=== PATIENT | female | born 1965 | race Caucasian/White ===

== ENCOUNTER 2017-04-12 09:25 | Emergency (ER) | payer MEDICAID, SELFPAY | END 2017-04-12 10:10 | disposition home or self-care (01) | PROVIDERS: Emergency Provider Nurse Practitioner Family; Family Provider Emergency Medicine; Visit Provider Nurse Practitioner Family | DX: N76.4 Abscess of vulva (principal); F17.210 Nicotine dependence, cigarettes, uncomplicated; J44.9 Chronic obstructive pulmonary disease, unspecified; I10 Essential (primary) hypertension; Z79.899 Other long term (current) drug therapy; Z85.41 Personal history of malignant neoplasm of cervix uteri; Z88.3 Allergy status to other anti-infective agents; Z88.8 Allergy status to other drugs, medicaments and biological substances | CPT/HCPCS: 99201 ==

== ENCOUNTER 2017-05-08 15:04 | Observation (INO) | payer MEDICAID, SELFPAY ==
[2017-05-08] VITALS (10 sets, daily range): BP systolic 107–139; BP diastolic 52–72; PULSE 71–101; RESP 20–22; TEMP 36.7–39.1; O2SAT 92–98; BMI 24.7; BMI 23.7
--- NOTE | 2017-05-08 15:19 | XR_ITS ---
XR chest 2V Ordering Physician: Betty Ojeda MD Patient Age: 51 years: Female HISTORY: ITS.REASON: cough, fever Fever cough congestion pneumonia TECHNIQUE: PA and lateral chest. COMPARISON :March 2016 CT chest FINDINGS : Focal infiltrate and consolidation posterior left lower lobe. This extends to the posterior sulcus & obscures the posterior right hemidiaphragm. This triangular area of consolidation and infiltrate best seen on the lateral view.. . Most likely related to pneumonia but requires clinical correlation. Morrill appearance conceivably could reflect Hagan hump if significant chest pain or hemoptysis history The upper lung ambriz are clear. The heart xavier and mediastinal structures appear satisfactory. IMPRESSION: 1.. Left lower lobe consolidation &, infiltrate. Most compatible left lower lobe pneumonia. Requires clinical correlation. Note comments above
[2017-05-08 15:48] LABS: Basophils % 0.2 % (0.1-2.0); Eosinophils % 0.1 % (0.1-12.0); Hematocrit 31.7 % (37.0-47.0); Hemoglobin 10.9 g/dL (12.2-16.2); Lymphocytes # 3.6 K/mm3 (0.7-4.5); Lymphocytes % 14.6 K/mm3 (10-50); Mean Corpuscular HGB Conc 34.3 g/dL (31.8-35.4); Mean Corpuscular Hemoglobin 28.1 pg (27.0-31.2); Mean Corpuscular Volume 81.8 fl (81-99); Mean Platelet Volume 8.6 fl (7.4-10.4); Monocytes % 4.2 % (1.7-9.3); Neutrophils # 19.8 K/mm3 (1.8-7.8); Platelet Count 237 K/mm3 (142-424); Red Blood Count 3.88 M/mm3 (4.20-5.40); White Blood Count 24.4 K/mm3 (4.8-10.8)
[2017-05-08 16:00] LABS: Alanine Aminotransferase 13 U/L (12-78); Albumin Level 3.2 gm/dL (3.4-5.0); Albumin/Globulin Ratio 0.7 (1.1-1.8); Alkaline Phosphatase 92 U/L (46-116); Anion Gap 10.9 mEq/L (5-15); Aspartate Amino Transferase 18 U/L (15-37); Bilirubin,Total 0.6 mg/dL (0.2-1.0); Blood Urea Nitrogen 11 mg/dL (7-18); Calcium 8.7 mg/dL (8.5-10.1); Carbon Dioxide 28 mmol/L (21.0-32.0); Chloride 95 mmol/L (98-107); Creatinine Clearance Estimated 84 mL/min (0-300); Creatinine,Serum 0.84 mg/dL (0.55-1.02); Estimated Glomerular Filt Rate 71 ml/min (>60); GFR (African American) 86 ML/MIN (>60); Globulin 4.7 gm/dl (1.3-3.2); Glucose 132 mg/dL (74-106); Sodium 131 mmol/L (136-145); Total Protein,Serum 7.9 gm/dL (6.4-8.2)
[2017-05-08 16:05] LABS: MANUAL DIFFERENTIAL MANUAL DIFFERENTIAL (MANUAL DIFF)
[2017-05-08 16:07] LABS: Potassium 2.9 mmoL/L (3.5-5.1)
--- NOTE | 2017-05-08 16:08 | PC.NURSE ---
CRITICAL POTASSIUM 2.9 MD WAS NOTED
[2017-05-08 17:00] LABS: Lymphocytes % 10 % (10-50); Monocytes % 2 % (2-9); Neutrophils % 88 % (42-76); Platelet Estimate Normal; Total Cells Counted 100
[2017-05-08 17:01] LABS: RBC Morphology Normal
--- NOTE | 2017-05-08 17:34 | HMH.EDFEV ---
ED Disposition Clinical Impression: Hypokalemia Community acquired pneumonia Qualifiers: Laterality: left Lung location: lower lobe of lung Qualified Code(s): J18.1 - Lobar pneumonia, unspecified organism Disposition: Admitted as Observation Condition on Discharge: Good Referrals: Gilles Osman MD [Primary Care Provider] - - Critical Care Critical Care Time: Yes Attestation: On 05/08/17, the high probability of a clinically significant, sudden or life threatening deterioration of the following system(s) required my full and direct attention, intervention and personal management. The time I documented below is in addition to time spent performing reported procedures but includes the following listed in this critical care notation. Total Critical Care Time: 10 Vital system(s) involved:: Circulatory Failure My critical care processes included: Assessment & monitoring of V/S, Initial and Re-exams, Data Review/Interpretation, Coordinating Care, Medication Orders and management, Documentation Medical Decision Making Vital Signs: 05/08/17 15:12 05/08/17 15:50 05/08/17 16:25 Temperature 102.4 F H 98.7 F Temperature Source Oral Oral Pulse Rate 92 H Pulse Rate [Left Brachial] 101 H 100 H Respiratory Rate 20 22 Blood Pressure [Left Arm] 139/52 130/65 Blood Pressure Mean [Left Arm] 81 86 Blood Pressure Source [Left Arm] Automatic Cuff Automatic Cuff Blood Pressure Position [Left Arm] Supine Sitting 02 Sat by Pulse Oximetry 94 L 94 L Oxygen Delivery Method Room Air Room Air Oxygen Flow Rate (LPM) 05/08/17 16:28 Temperature Temperature Source Pulse Rate Pulse Rate [Left Brachial] Respiratory Rate Blood Pressure [Left Arm] Blood Pressure Mean [Left Arm] Blood Pressure Source [Left Arm] Blood Pressure Position [Left Arm] 02 Sat by Pulse Oximetry 94 L Oxygen Delivery Method Room Air Oxygen Flow Rate (LPM) 2 - Lab Data Lab Results 05/08/17 15:35: WBC 24.4 H*, RBC 3.88 L, Hgb 10.9 L, Hct 31.7 L, MCV 81.8, MCH 28.1, MCHC 34.3, RDW 13.0, Plt Count 237, MPV 8.6, Neut % (Auto) 81.0 H, Lymph % (Auto) 14.6, [place] % (Auto) 4.2, Eos % (Auto) 0.1, Baso % (Auto) 0.2, Neut # (Auto) 19.8 H, Lymph # (Auto) 3.6, [place] # (Auto) 1.0, Eos # (Auto) 0.0, Baso # (Auto) 0.0, Total Counted 100, Neutrophils % (Manual) 88 H, Lymphocytes % (Manual) 10, Monocytes % (Manual) 2, Platelet Estimate Normal, RBC Morphology Normal 05/08/17 15:35: Sodium 131 L, Potassium 2.9 L*, Chloride 95 L, Carbon Dioxide 28, Anion Gap 10.9, BUN 11, Creatinine 0.84, Estimated Creat Clear 84, Estimated GFR 71, Est GFR ( Amer) 86, Glucose 132 H, Calcium 8.7, Total Bilirubin 0.6, AST 18, ALT 13, Alkaline Phosphatase 92, Total Protein 7.9, Albumin 3.2 L, Globulin 4.7 H, Albumin/Globulin Ratio 0.7 L 05/08/17 15:40: Influenza Type A Ag Negative, Influenza Type B Ag Negative Result diagrams: 05/08/17 15:35 05/08/17 15:35 Orders (Tests/Meds): ED MEDICATIONS Discontinued Medications Generic Name Dose Route Start Last Admin Trade Name Freq PRN Reason Stop Dose Admin Albuterol/Ipratropium 3 ml 05/08/17 15:42 05/08/17 15:47 Duoneb 3ml Neb IH 05/08/17 15:43 3 ml ONCE ONE Administration Ceftriaxone Sodium 1 gm/ 50 mls @ 100 mls/hr 05/08/17 16:01 05/08/17 16:47 Sodium Chloride IV 05/08/17 16:30 100 mls/hr ONCE ONE Administration Ibuprofen 800 mg 05/08/17 17:46 Motrin 600mg Tablet PO 05/08/17 17:47 ONCE ONE Methylprednisolone Sodium Succinate 125 mg 05/08/17 16:00 05/08/17 16:47 Solu-Medrol 125mg/2ml Vial IV 05/08/17 16:01 125 mg ONCE ONE Administration Potassium Chloride 20 meq 05/08/17 16:09 05/08/17 16:47 Klor-Con 20meq Tablet PO 05/08/17 16:10 20 meq ONCE ONE Administration ORDERS Category Date Time Status Lactic Acid Stat Lab 05/08/17 15:35 Received Blood Culture Stat Micro 05/08/17 15:35 Received ECG Request by /Ronan Stat Y 05/08/17 16:08 Ordered
--- NOTE | 2017-05-08 17:37 | ED_ITS ---
ED Disposition Clinical Impression: Hypokalemia Community acquired pneumonia Qualifiers: Laterality: left Lung location: lower lobe of lung Qualified Code(s): J18.1 - Lobar pneumonia, unspecified organism Disposition: Admitted as Observation Condition on Discharge: Good Referrals: Gilles Osman MD [Primary Care Provider] - - Critical Care Critical Care Time: Yes Attestation: On 05/08/17, the high probability of a clinically significant, sudden or life threatening deterioration of the following system(s) required my full and direct attention, intervention and personal management. The time I documented below is in addition to time spent performing reported procedures but includes the following listed in this critical care notation. Total Critical Care Time: 10 Vital system(s) involved:: Circulatory Failure My critical care processes included: Assessment & monitoring of V/S, Initial and Re-exams, Data Review/Interpretation, Coordinating Care, Medication Orders and management, Documentation Medical Decision Making Vital Signs: 05/08/17 15:12 05/08/17 15:50 05/08/17 16:25 Temperature 102.4 F H 98.7 F Temperature Source Oral Oral Pulse Rate 92 H Pulse Rate [Left Brachial] 101 H 100 H Respiratory Rate 20 22 Blood Pressure [Left Arm] 139/52 130/65 Blood Pressure Mean [Left Arm] 81 86 Blood Pressure Source [Left Arm] Automatic Cuff Automatic Cuff Blood Pressure Position [Left Arm] Supine Sitting 02 Sat by Pulse Oximetry 94 L 94 L Oxygen Delivery Method Room Air Room Air Oxygen Flow Rate (LPM) 05/08/17 16:28 Temperature Temperature Source Pulse Rate Pulse Rate [Left Brachial] Respiratory Rate Blood Pressure [Left Arm] Blood Pressure Mean [Left Arm] Blood Pressure Source [Left Arm] Blood Pressure Position [Left Arm] 02 Sat by Pulse Oximetry 94 L Oxygen Delivery Method Room Air Oxygen Flow Rate (LPM) 2 - Lab Data Lab Results 05/08/17 15:35: WBC 24.4 H*, RBC 3.88 L, Hgb 10.9 L, Hct 31.7 L, MCV 81.8, MCH 28.1, MCHC 34.3, RDW 13.0, Plt Count 237, MPV 8.6, Neut % (Auto) 81.0 H, Lymph % (Auto) 14.6, [place] % (Auto) 4.2, Eos % (Auto) 0.1, Baso % (Auto) 0.2, Neut # ( Auto) 19.8 H, Lymph # (Auto) 3.6, [place] # (Auto) 1.0, Eos # (Auto) 0.0, Baso # ( Auto) 0.0, Total Counted 100, Neutrophils % (Manual) 88 H, Lymphocytes % (Manual ) 10, Monocytes % (Manual) 2, Platelet Estimate Normal, RBC Morphology Normal 05/08/17 15:35: Sodium 131 L, Potassium 2.9 L*, Chloride 95 L, Carbon Dioxide 28 , Anion Gap 10.9, BUN 11, Creatinine 0.84, Estimated Creat Clear 84, Estimated GFR 71, Est GFR ( Amer) 86, Glucose 132 H, Calcium 8.7, Total Bilirubin 0.6, AST 18, ALT 13, Alkaline Phosphatase 92, Total Protein 7.9, Albumin 3.2 L, Globulin 4.7 H, Albumin/Globulin Ratio 0.7 L 05/08/17 15:40: Influenza Type A Ag Negative, Influenza Type B Ag Negative Result diagrams: 05/08/17 15:35 05/08/17 15:35 Orders (Tests/Meds): ED MEDICATIONS Discontinued Medications Generic Name Dose Route Start Last Admin Trade Name Freq PRN Reason Stop Dose Admin Albuterol/Ipratropium 3 ml 05/08/17 15:42 05/08/17 15:47 Duoneb 3ml Neb IH 05/08/17 15:43 3 ml ONCE ONE Administration Ceftriaxone Sodium 1 gm/ 50 mls @ 100 mls/hr 05/08/17 16:01 05/08/17 16:47
--- NOTE | 2017-05-08 18:35 | PC.NURSE ---
report called to EITAN Greenwood on second floor at this time
[2017-05-08 19:15] LABS: Lactic Acid 1.7 mmol/L (0.4-2.0)
--- NOTE | 2017-05-08 20:46 | PC.NURSE ---
pt stated she did not want to wear johnny s at this time. that she would wear them tomorrow. nurse notified
--- NOTE | 2017-05-08 22:28 | PC.NURSE ---
called dr sorto in [place] who is attending. request something for a cough. no new order yet.
[2017-05-09] VITALS: BP 128/73; PULSE 60; RESP 18; TEMP 36.4; O2SAT 98
[2017-05-09 00:13] LABS: POC Glucose,Bedside 248 mg/dL
--- NOTE | 2017-05-09 00:18 | PC.NURSE ---
pts bp was taken in lt arm on 20:00 & 00:00 round
[2017-05-09 01:45] VITALS: PULSE 54; PULSE 55
[2017-05-09 04:00] VITALS: BP 99/52; PULSE 66; RESP 22; TEMP 36.3; O2SAT 100
--- NOTE | 2017-05-09 04:09 | PC.NURSE ---
LAYING IN BED RESTING AT THIS TIME. HAD A DRY NONPRODUCTIVE COUGH AT BEGINNING OF SHIFT. NOTIFIED DR ARIAS OF NEED FOR COUGH MEDICATION, NO NEW ORDER. LUNGS ARE DIMINISHED WITH SOME FINE CRACKLES IN LEFT. HAD SOME BACK PAIN AT BEGINNING OF SHIFT. GAVE TYLENOL. DENIES SOA, RESP ARE EVEN AND NONLABORED. IV IS PATENT, STATES HAS NO NEEDS AT THIS TIME. BED LOCKED IN LOW POSITION, SIDE RALES UP X 2. CALL LILLY WITHIN REACH. WILL CONTINUE TO MONITOR.
--- NOTE | 2017-05-09 04:22 | PC.NURSE ---
PATIENT HAS REFUSED TEDS, EDUCATED ON WHAT THEY ARE USED FOR. SAYS SHE WILL PUT THEM ON AFTER SHOWER TODAY.
--- NOTE | 2017-05-09 04:36 | PC.NURSE ---
pts bp was taken in ;lt arm
[2017-05-09 06:38] VITALS: PULSE 76; PULSE 77; O2SAT 97
--- NOTE | 2017-05-09 07:14 | PC.NURSE ---
LATE ENTRY-PT WANTS TO TAKE A BATRH AFTER BREAKFAST
[2017-05-09 07:18] LABS: Basophils % 0.1 % (0.1-2.0); Eosinophils % 0.3 % (0.1-12.0); Hematocrit 34.3 % (37.0-47.0); Hemoglobin 11.1 g/dL (12.2-16.2); Lymphocytes % 22.3 K/mm3 (10-50); Mean Corpuscular HGB Conc 32.4 g/dL (31.8-35.4); Mean Corpuscular Hemoglobin 27.8 pg (27.0-31.2); Mean Corpuscular Volume 85.9 fl (81-99); Mean Platelet Volume 8.5 fl (7.4-10.4); Monocytes # 0.1 K/mm3 (0.1-1.0); Monocytes % 1.6 % (1.7-9.3); Neutrophils # 6.6 K/mm3 (1.8-7.8); Neutrophils % 75.8 % (37.0-80.0); Platelet Count 230 K/mm3 (142-424); Red Blood Count 3.99 M/mm3 (4.20-5.40); Red Cell Distribution Width 13.1 % (11.5-17.5); White Blood Count 8.8 K/mm3 (4.8-10.8)
--- NOTE | 2017-05-09 07:21 | PC.NURSE ---
Received report from Lin Burns RN
[2017-05-09 07:29] LABS: Alanine Aminotransferase 11 U/L (12-78); Albumin Level 3.1 gm/dL (3.4-5.0); Albumin/Globulin Ratio 0.6 (1.1-1.8); Alkaline Phosphatase 90 U/L (46-116); Anion Gap 11.2 mEq/L (5-15); Aspartate Amino Transferase 12 U/L (15-37); Bilirubin,Total 0.4 mg/dL (0.2-1.0); Blood Urea Nitrogen 17 mg/dL (7-18); Calcium 9.1 mg/dL (8.5-10.1); Carbon Dioxide 29 mmol/L (21.0-32.0); Chloride 102 mmol/L (98-107); Creatinine Clearance Estimated 67 mL/min (0-300); Estimated Glomerular Filt Rate 58 ml/min (>60); GFR (African American) 70 ML/MIN (>60); Globulin 5.2 gm/dl (1.3-3.2); Glucose 192 mg/dL (74-106); Potassium 4.2 mmoL/L (3.5-5.1); Sodium 138 mmol/L (136-145); Total Protein,Serum 8.3 gm/dL (6.4-8.2)
--- NOTE | 2017-05-09 07:45 | P.CONPHA_ITS ---
[facility] Pharmacy VTE Monitoring - Patient Demographics Admission date: 05/08/17 Report Date: 05/09/17 Time: 07:33 Allergies/Adverse Reactions: ofloxacin [OFLOXACIN] Allergy (Mild, Verified 05/08/17 14:44) pregabalin [From LYRICA] Allergy (Mild, Verified 05/08/17 14:44) sulfamethoxazole [From BACTRIM] Allergy (Mild, Verified 05/08/17 14:44) trimethoprim [From BACTRIM] Allergy (Mild, Verified 05/08/17 14:44) Height: 1.65 m Weight: 64.042 kg Patient Problems: Current Active Problems Community acquired pneumonia (Acute) Hypokalemia (Acute) - VTE Risk Labs: VTE Related Lab Results Hgb 10.9 g/dL (12.2-16.2) L 05/08/17 15:35 Hct 31.7 % (37.0-47.0) L 05/08/17 15:35 Plt Count 237 K/mm3 (142-424) 05/08/17 15:35 BUN 11 mg/dL (7-18) 05/08/17 15:35 Creatinine 0.84 mg/dL (0.55-1.02) 05/08/17 15:35 Estimated Creat Clear 84 mL/min (0-300) 05/08/17 15:35 Was VTE Risk Assessment Performed: Yes VTE Risk Level: Low Risk - Prophylaxis VTE Prophylaxis Ordered?: Yes Types of VTE Prophylaxis: TEDS Knee High Location of Applied Device: Bilateral Lower Extremeties - VTE Diagnosis Confirmed Treatment or plan recommended: Continue Current Treatment
[2017-05-09 08:00] VITALS: BP 101/63; PULSE 67; RESP 20; TEMP 36.3; O2SAT 97
--- NOTE | 2017-05-09 09:02 | HMH.HPDC ---
General - General Admission date: 05/08/17 Discharge date: 05/09/17 *Admission Date: 05/08/17 *Chief complaint: sob *History of present illness: 51-year-old female presented to the office today with complaints since Saturday of productive cough, shortness of breath and fever. From primary care office to the ER diagnosed with pneumonia.Reports a history of COPD but denies being steroid-dependent at this time. [facility] History Medical History: Reports:: Cancer (cervix), Hyperlipidemia, Hypertension Denies:: Diabetes Mellitus Type 1, Diabetes Mellitus Type 2, MRSA Other Medical History: Reports: Fibromyalgia Laterality Cases: Left: Other, Bilateral: Carpal Tunnel Release, Tonsillectomy Other Surgeries: Yes: Appendectomy, Dilation and Curettage, Diagnostic Lap, Hysterectomy-Total, Tubal Ligation Amputation: No Fractures: No - *Social History Educational Level: Completed College Smoking Status: Current every day smoker Tobacco Type: cigarettes # Packs/Day (cigarettes): 1 Alcohol Intake: never Occupational Status: employed Housing: house Household Members: spouse, children - Psychiatric History Expresses thoughts of harming self/others: None Suicide Plan Description: No Plan *Family Hx:: Cancer, Coronary Artery Disease, Diabetes, Hypertension Exam Vital signs and Labs for Last 24 Hours: Temp Pulse Resp BP Pulse Ox 97.4 F L 77 22 99/52 97 05/09/17 04:00 05/09/17 06:38 05/09/17 04:00 05/09/17 04:00 05/09/17 06:38 Laboratory Results - last 24 hr 05/09/17 00:00: POC Glucose 248 05/09/17 06:15: WBC 8.8 D, RBC 3.99 L, Hgb 11.1 L, Hct 34.3 L, MCV 85.9, MCH 27.8, MCHC 32.4, RDW 13.1, Plt Count 230, MPV 8.5, Neut % (Auto) 75.8, Lymph % (Auto) 22.3, [place] % (Auto) 1.6 L, Eos % (Auto) 0.3, Baso % (Auto) 0.1, Neut # (Auto) 6.6, Lymph # (Auto) 2.0, [place] # (Auto) 0.1, Eos # (Auto) 0.0, Baso # (Auto) 0.0 05/09/17 06:15: Sodium 138, Potassium 4.2 D, Chloride 102, Carbon Dioxide 29, Anion Gap 11.2, BUN 17 D, Creatinine 1.00, Estimated Creat Clear 67, Estimated GFR 58 L, Est GFR ( Amer) 70, Glucose 192 H D, Calcium 9.1, Total Bilirubin 0.4, AST 12 L D, ALT 11 L, Alkaline Phosphatase 90, Total Protein 8.3 H, Albumin 3.1 L, Globulin 5.2 H, Albumin/Globulin Ratio 0.6 L - Constitutional no acute distress - *Routine HEENT Exam Head: Present: normocephalic Eye: Present: PERRL ENT: Present: mucous membranes moist - *Routine Neck Exam Present: supple, full ROM - *Routine Respiratory Exam Present: wheezes, diminished air movement - *Routine Cardiovascular Exam Present: RRR - *Routine Abdominal Exam Present: soft, normoactive bowel sounds Hospital Course Hospital Course: Patient was given a neb treatment in the ER. Admitted on IV Zithromax and Rocephin. This a.m. patient states better and would like to go home. Patient up in the room just finished a shower. Patient will be discharged home follow-up next week in the office. Results Labs on day of discharge: Labs from last 24 hours 05/09/17 05/09/17 05/09/17 06:15 06:15 00:00 WBC 8.8 D RBC 3.99 L Hgb 11.1 L Hct 34.3 L MCV 85.9 MCH 27.8 MCHC 32.4 RDW 13.1 Plt Count 230 MPV 8.5 Neut % (Auto) 75.8 Lymph % (Auto) 22.3 [place]pkins % (Auto) 1.6 L Eos % (Auto) 0.3 Baso % (Auto) 0.1 Neut # (Auto) 6.6 Lymph # (Auto) 2.0 [place] # (Auto) 0.1 Eos # (Auto) 0.0 Baso # (Auto) 0.0 Sodium 138 Potassium 4.2 D Chloride 102 Carbon Dioxide 29 Anion Gap 11.2 BUN 17 D Creatinine 1.00 Estimated Creat Clear 67 Estimated GFR 58 L Est GFR ( Amer) 70 Glucose 192 H D POC Glucose 248 Calcium 9.1 Total Bilirubin 0.4 AST 12 L D ALT 11 L Alkaline Phosphatase 90 Total Protein 8.3 H Albumin 3.1 L Globulin 5.2 H Albumin/Globulin Ratio 0.6 L DS: Diagnosis - Discharge Diagnosis (1) Community acquired pneumonia Status: Acute
--- NOTE | 2017-05-09 09:06 | P.SWB_ITS ---
General - General Admission date: 05/08/17 Discharge date: 05/09/17 *Admission Date: 05/08/17 *Chief complaint: sob *History of present illness: 51-year-old female presented to the office today with complaints since Saturday of productive cough, shortness of breath and fever. From primary care office to the ER diagnosed with pneumonia.Reports a history of COPD but denies being steroid-dependent at this time. [facility] History Medical History: Reports:: Cancer (cervix), Hyperlipidemia, Hypertension Denies:: Diabetes Mellitus Type 1, Diabetes Mellitus Type 2, MRSA Other Medical History: Reports: Fibromyalgia Laterality Cases: Left: Other, Bilateral: Carpal Tunnel Release, Tonsillectomy Other Surgeries: Yes: Appendectomy, Dilation and Curettage, Diagnostic Lap, Hysterectomy-Total, Tubal Ligation Amputation: No Fractures: No - *Social History Educational Level: Completed College Smoking Status: Current every day smoker Tobacco Type: cigarettes # Packs/Day (cigarettes): 1 Alcohol Intake: never Occupational Status: employed Housing: house Household Members: spouse, children - Psychiatric History Expresses thoughts of harming self/others: None Suicide Plan Description: No Plan *Family Hx:: Cancer, Coronary Artery Disease, Diabetes, Hypertension Exam Vital signs and Labs for Last 24 Hours: Temp Pulse Resp BP Pulse Ox 97.4 F L 77 22 99/52 97 05/09/17 04:00 05/09/17 06:38 05/09/17 04:00 05/09/17 04:00 05/09/17 06:38 Laboratory Results - last 24 hr 05/09/17 00:00: POC Glucose 248 05/09/17 06:15: WBC 8.8 D, RBC 3.99 L, Hgb 11.1 L, Hct 34.3 L, MCV 85.9, MCH 27.8, MCHC 32.4, RDW 13.1, Plt Count 230, MPV 8.5, Neut % (Auto) 75.8, Lymph % ( Auto) 22.3, Stewart % (Auto) 1.6 L, Eos % (Auto) 0.3, Baso % (Auto) 0.1, Neut # ( Auto) 6.6, Lymph # (Auto) 2.0, Stewart # (Auto) 0.1, Eos # (Auto) 0.0, Baso # (Auto ) 0.0 05/09/17 06:15: Sodium 138, Potassium 4.2 D, Chloride 102, Carbon Dioxide 29, Anion Gap 11.2, BUN 17 D, Creatinine 1.00, Estimated Creat Clear 67, Estimated GFR 58 L, Est GFR ( Amer) 70, Glucose 192 H D, Calcium 9.1, Total Bilirubin 0.4, AST 12 L D, ALT 11 L, Alkaline Phosphatase 90, Total Protein 8.3 H, Albumin 3.1 L, Globulin 5.2 H, Albumin/Globulin Ratio 0.6 L - Constitutional no acute distress - *Routine HEENT Exam Head: Present: normocephalic Eye: Present: PERRL ENT: Present: mucous membranes moist - *Routine Neck Exam Present: supple, full ROM - *Routine Respiratory Exam Present: wheezes, diminished air movement - *Routine Cardiovascular Exam Present: RRR - *Routine Abdominal Exam Present: soft, normoactive bowel sounds Hospital Course Hospital Course: Patient was given a neb treatment in the ER. Admitted on IV Zithromax and Rocephin. This a.m. patient states better and would like to go home. Patient up in the room just finished a shower. Patient will be discharged home follow- up next week in the office. Results Labs on day of discharge: Labs from last 24 hours 05/09/17 05/09/17 05/09/17 06:15 06:15 00:00 WBC 8.8 D RBC 3.99 L Hgb 11.1 L Hct 34.3 L MCV 85.9 MCH 27.8 MCHC 32.4 RDW 13.1 Plt Count 230 MPV 8.5 Neut % (Auto) 75.8 Lymph % (Auto) 22.3 Stewart % (Auto) 1.6 L Eos % (Auto) 0.3 Baso % (Auto) 0.1 Neut # (Auto) 6.6
[2017-05-09 09:17] VITALS: O2SAT 99
--- NOTE | 2017-05-09 11:06 | PC.NURSE ---
1106 - PT ARRIVED VIA WHEELCHAIR TO ROOM 205.
== END 2017-05-09 10:20 | disposition home or self-care (01) ==
LOC: ER 16:04 → 2ND 18:00
PROVIDERS: Admitting Provider Emergency Medicine; Emergency Provider Emergency Medicine; Family Provider Emergency Medicine; PCP Emergency Medicine; Visit Provider Emergency Medicine
DX: J96.00 Acute respiratory failure, unspecified whether with hypoxia or hypercapnia; J44.9 Chronic obstructive pulmonary disease, unspecified; J18.9 Pneumonia, unspecified organism
CPT/HCPCS: 71046; 80053; 82962; 83605; 85007; 85025; 87040; 87077; 87186; 87275; 87276; 93005; 93041; 94640; 94760; 94761; 96374; 96375; 99284; G0378; J0456

== ENCOUNTER → 2017-05-31 15:25 | Outpatient (CLI) | payer MEDICAID, SELFPAY ==
--- NOTE | 2017-05-31 15:28 | XR_ITS ---
XR chest 2V HISTORY: Follow-up pneumonia ITS.REASON: pneumonia ORDERING PHYSICIAN: Gilles Osman MD PATIENT AGE: 51 years COMPARISON: 05/08/2017 FINDINGS: The cardiomediastinal silhouette and pulmonary vascularity are within normal limits. The lungs are clear without infiltrates, suspicious nodules, or pleural effusions. Previously noted consolidation in the left lower lobe has improved No acute bony abnormalities. IMPRESSION: Improved left lower lobe pneumonia, no acute finding
== END ==
PROVIDERS: PCP Emergency Medicine; Visit Provider Emergency Medicine
DX: J18.9 Pneumonia, unspecified organism (principal)
CPT/HCPCS: 71046

== ENCOUNTER → 2017-07-02 14:01 | Outpatient (POV) | payer MEDICAID, SELFPAY | PROVIDERS: Family Provider Emergency Medicine; PCP Emergency Medicine; Visit Provider Internal Medicine | DX: Z00.00 Encounter for general adult medical examination without abnormal findings (principal) ==

== ENCOUNTER → 2017-08-30 15:13 | Outpatient (REF) | payer MEDICAID, SELFPAY ==
[2017-08-30 18:15] LABS: Basophils # 0.1 K/mm3 (0-0.2); Basophils % 1.5 % (0.1-2.0); Eosinophils # 0.2 K/mm3 (0.0-0.4); Eosinophils % 3.2 % (0.1-12.0); Hematocrit 38.1 % (37.0-47.0); Hemoglobin 12.5 g/dL (12.2-16.2); Lymphocytes % 42.9 K/mm3 (10-50); Mean Corpuscular HGB Conc 32.9 g/dL (31.8-35.4); Mean Corpuscular Hemoglobin 28.4 pg (27.0-31.2); Mean Corpuscular Volume 86.2 fl (81-99); Mean Platelet Volume 8.2 fl (7.4-10.4); Monocytes # 0.4 K/mm3 (0.1-1.0); Monocytes % 5.6 % (1.7-9.3); Neutrophils # 3.2 K/mm3 (1.8-7.8); Neutrophils % 46.9 % (37.0-80.0); Platelet Count 262 K/mm3 (142-424); Red Blood Count 4.42 M/mm3 (4.20-5.40); Red Cell Distribution Width 13.4 % (11.5-17.5); White Blood Count 6.9 K/mm3 (4.8-10.8)
[2017-08-30 18:35] LABS: Alanine Aminotransferase 16 U/L (12-78); Albumin Level 3.7 gm/dL (3.4-5.0); Alkaline Phosphatase 110 U/L (46-116); Anion Gap 12.5 mEq/L (5-15); Aspartate Amino Transferase 13 U/L (15-37); Bilirubin,Total 0.2 mg/dL (0.2-1.0); Blood Urea Nitrogen 8 mg/dL (7-18); Calcium 8.9 mg/dL (8.5-10.1); Carbon Dioxide 28 mmol/L (21.0-32.0); Chloride 105 mmol/L (98-107); Chol/HDL Ratio 6.9 (1-3.5); Cholesterol 220 mg/dL (140-200); Creatinine,Serum 0.66 mg/dL (0.55-1.02); Estimated Glomerular Filt Rate 94 ml/min (>60); Free T4 (Free Thyroxine) 0.85 ng/dl (0.76-1.46); GFR (African American) 114 ML/MIN (>60); Globulin 3.7 gm/dl (1.3-3.2); Glucose 108 mg/dL (74-106); HDL Cholesterol 32 mg/dL (29-89); LDL Cholesterol 129 mg/dL (0-130); Potassium 3.5 mmoL/L (3.5-5.1); Sodium 142 mmol/L (136-145); Thyroid Stimulating Hormone 0.96 uIU/ml (0.358-3.740); Total Protein,Serum 7.4 gm/dL (6.4-8.2); Triglycerides 294 mg/dL (30-200); VLDL Cholesterol 59 mg/dL (0-40)
[2017-08-30 19:01] LABS: Erythrocyte Sedimentation Rate 27 mm/hr (0-30)
[2017-09-01 17:30] LABS: Folate 4.1 ng/mL (>3.0); Vitamin B12 239 pg/mL (232-1245)
[2017-09-02 05:46] LABS: Vitamin D 25 Hydroxy 28.1 ng/mL (30.0-100.0)
== END ==
LOC: LAB 15:13
PROVIDERS: Visit Provider Emergency Medicine
DX: R53.83 Other fatigue (principal)
CPT/HCPCS: 80053; 80061; 82607; 82652; 82746; 84439; 84443; 85025; 85651

== ENCOUNTER → 2017-10-04 09:59 | Outpatient (CLI) | payer MEDICAID, SELFPAY ==
[2017-10-04 11:13] LABS: Free Thyroxine Index 2.3 ug/dL (5.93-13.13); T4 (Thyroxine) 7.2 ug/dl (4.7-13.3); Thyroid Stimulating Hormone 0.83 uIU/ml (0.358-3.740); Triiodothryronine (T3) Uptake 32 % (31-39)
[2017-10-05 20:27] LABS: Thyroid Peroxidase Antibodies 18 IU/mL (0-34)
[2017-10-08 10:06] LABS: Thyroglobulin Level 1.1 IU/mL (0.0-0.9)
[2017-10-14 06:42] LABS: Thyroglobulin by RIA 7.3 ng/mL (.)
== END ==
PROVIDERS: Family Provider Emergency Medicine; PCP Emergency Medicine; Visit Provider Otolaryngology Otolaryngology/Facial Plastic Surgery
DX: M54.2 Cervicalgia (principal); R13.10 Dysphagia, unspecified
CPT/HCPCS: 36415; 84436; 84443; 84479; 86376; 86800

== ENCOUNTER 2017-11-12 14:18 | Inpatient (IN) ==
--- NOTE | 2017-11-12 14:31 | Emergency Department Note ---
ED Disposition Clinical Impression: Precordial chest pain Disposition: Still a Patient Condition on Discharge: Good Referrals: Gilles Osman MD [Primary Care Provider] - - Critical Care Critical Care Time: No Attestation: On , the high probability of a clinically significant, sudden or life threatening deterioration of the following system(s) required my full and direct attention, intervention and personal management. The time I documented below is in addition to time spent performing reported procedures but includes the following listed in this critical care notation. Medical Decision Making - Mckay Inquiry Pt receiving controlled substance: No Vital Signs: 11/12/17 14:18 11/12/17 14:29 11/12/17 14:34 Temperature 97.8 F 97.8 F Temperature Source Oral Oral Pulse Rate 89 Pulse Rate [Apical] 116 H 90 Respiratory Rate 20 20 20 Blood Pressure 119/88 Blood Pressure [Right Arm] 178/93 181/109 Blood Pressure Mean [Right Arm] 121 133 Blood Pressure Source Automatic Cuff Blood Pressure Source [Right Arm] Automatic Cuff Automatic Cuff Blood Pressure Position Sitting Blood Pressure Position [Right Arm] Sitting Sitting 02 Sat by Pulse Oximetry 98 96 Oxygen Delivery Method Room Air Room Air Room Air Oxygen Delivery Method [Throughout] 11/12/17 14:53 Temperature Temperature Source Pulse Rate 80 Pulse Rate [Apical] 97 H Respiratory Rate 16 Blood Pressure Blood Pressure [Right Arm] 142/90 Blood Pressure Mean [Right Arm] 107 Blood Pressure Source Blood Pressure Source [Right Arm] Automatic Cuff Blood Pressure Position Blood Pressure Position [Right Arm] Sitting 02 Sat by Pulse Oximetry 100 Oxygen Delivery Method Room Air Oxygen Delivery Method [Throughout] Room Air - Lab Data Lab Results 11/12/17 12:23: WBC 9.8, RBC 4.94, Hgb 13.5, Hct 42.8, MCV 86.7, MCH 27.4, MCHC 31.6 L, RDW 13.7, Plt Count 298, MPV 7.1 L, Neut % (Auto) 49.1, Lymph % (Auto) 40.1, [place] % (Auto) 6.2, Eos % (Auto) 3.3, Baso % (Auto) 1.3, Neut # (Auto) 4.8 , Lymph # (Auto) 3.9, [place] # (Auto) 0.6, Eos # (Auto) 0.3, Baso # (Auto) 0.1 Result diagrams: 11/12/17 12:23 Orders (Tests/Meds): ED MEDICATIONS Generic Name Dose Route Start Last Admin Trade Name Freq PRN Reason Stop Dose Admin Diphenhydramine HCl 50 mg 11/12/17 14:49 Benadryl 50mg/1ml Vial IV 11/12/17 14:50 ONCE ONE Fentanyl Citrate 50 mcg 11/12/17 14:49 Fentanyl 100mcg/2ml Vial IV 11/13/17 14:50 Q3MINP PRN Moderate to Severe Pain Fentanyl Citrate 25 mcg 11/12/17 14:49 Fentanyl 250mcg/5ml Vial IV 11/13/17 14:50 Q3MINP PRN Moderate to Severe Pain Fentanyl Citrate 50 mcg 11/12/17 14:49 Fentanyl 250mcg/5ml Vial IV 11/13/17 14:50 Q3MINP PRN Moderate to Severe Pain Fentanyl Citrate 25 mcg 11/12/17 14:49 Fentanyl 100mcg/2ml Vial IV 11/13/17 14:50 Q3MINP PRN Moderate to Severe Pain Flumazenil 0.2 mg 11/12/17 14:49 Romazicon 0.1mg/Ml 5ml Vial IV 11/12/17 23:00 NEEDED PRN Sedation Heparin Sodium (Porcine) 10,000 unit 11/12/17 14:49 Heparin 1,000 Units/Ml 10ml Vial ([facility]) IV 11/12/17 18:50 NEEDED PRN 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 Heparin Sodium/Sodium Chloride 3,000 unit 11/12/17 14:49 Heparin 1000 Units/500ml Ns ([facility]) IV 11/12/17 14:50 ONCE ONE Sodium Chloride 1,000 mls @ 999 mls/hr 11/12/17 14:30 11/12/17 14:29 Sod Chlor 0.9% 1000ml Bag IV 11/12/17 15:30 999 mls/hr .Q1H1M BERNARDA Administration Sodium Chloride 1,000 mls @ 25 mls/hr 11/12/17 15:00 Sod Chlor 0.9% 1000ml Bag IV 11/13/17 14:50 .Q25H BERNARDA Lidocaine HCl 20 ml 11/12/17 14:49 Lidocaine 1% 20ml Mdv IJ 11/12/17 14:50 ONCE ONE Metoprolol Succinate 50 mg 11/12/17 14:40 Toprol Xl 50mg Tablet PO 11/12/17 14:41 ONCE ONE Midazolam HCl 1 mg 11/12/17 14:49 Midazolam 2mg/2ml Vial IV 11/13/17 14:50 Q3MINP PRN Sedation Midazolam HCl 1 mg 11/12/17 14:49 Midazolam 1mg/Ml 5ml Vial IV 11/13/17 14:50 Q3MINP PRN Sedation Naloxone HCl 0.4 mg 11/12/17 14:49 Narcan 0.4mg/Ml Vial IV 11/13/17 14:50 Q5MINP PRN Decreased respirations Nitroglycerin 800 mcg 11/12/17 14:49 Nitroglycerin 800mcg/8ml Syr ([facility]) IV 11/13/17 14:50 NEEDED PRN 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 Verapamil HCl 2.5 mg 11/12/17 14:49 Verapamil 2.5mg/Ml 2ml Vial IV 11/12/17 14:50 ONCE ONE Discontinued Medications Generic Name Dose Route Start Last Admin Trade Name Freq PRN Reason Stop Dose Admin Aspirin 324 mg 11/12/17 14:30 11/12/17 14:30 Aspirin 81mg Chewable Tablet PO 11/12/17 14:31 324 mg ONCE ONE Administration Metoprolol Tartrate 5 mg 11/12/17 14:24 11/12/17 14:29 Metoprolol Tartrate 5mg/5ml Vial IV 11/12/17 14:25 5 mg ONCE ONE Administration Nitroglycerin 0.5 gm 11/12/17 14:25 11/12/17 14:28 Nitroglycerin 1 Inch Oint Udp TD 11/12/17 14:26 0.5 gm ONCE ONE Administration ORDERS Category Date Time Status Basic Metabolic Panel Stat Lab 11/12/17 12:23 Received Complete Blood Count Auto Diff Stat Lab 11/12/17 14:49 Ordered Troponin I Stat Lab 11/12/17 12:23 Received - ECG Data Tracing #1 EKG interpreted by Duy Gilbert MD: Rhythm: sinus Rate: 90 [place]: normal Ectopy: none Conduction: normal ST Segment Changes: Nonspecific T Wave Changes: none Q Waves: none No evidence of acute ischemia or injury - Physician Consults Physician Consulted: MIRLANDE Bhakta, for Dr. Hoover Time: 14:31 Reason -: Cardiology Eval/Care Comment/Response: Present in the emergency department seeking patient Medical Decision Narrative: 2:35 PM: Patient has already been taken to [facility] prior to my evaluation General Adult HPI - General Chief complaint: Chest Pain Stated complaint: chest pain Time Seen by Provider: 11/12/17 14:35 Mode of Arrival: Ambulatory Limitations: No Limitations Description of Symptoms (Recalled from ER Triage Doc. by RN): Pt reports squeezing type chest pain across chest x4 days. Pt reports pain has been intermittent in nature, reports SOA at time with chest pain. Pt was seen at PCP office today and send to ER for further evaluation - History of Present Illness HPI narrative: Chest pain intermittently that started on Saturday 4 days ago. She says she gets a handful of episodes a day, the longest has lasted about an hour. Brought on by physical activity and relieved by rest. Associated with shortness of breath and diaphoresis, but no nausea. Radiates to her back under her shoulder blade, in fact it started more in her back. Currently having an episode of discomfort that started when she got to the emergency room. Currently rates at 3/10. She has hypertension, hyperlipidemia, family history of heart disease, and is a smoker. She does not have any known heart disease herself. - Related Data Home Medications Medication Instructions Recorded Confirmed bupropion HCl 75 mg tablet 75 mg PO BID tab 05/08/17 05/08/17 ipratropium-albuterol 0.5 mg-3 3 ml INHALATION Q8H 05/08/17 05/08/17 mg(2.5 mg base)/3 mL nebulization soln buprenorphine 5.7 mg-naloxone 1.4 2 tab SUBLINGUAL QAM 05/21/17 mg sublingual tablet Previous Rx's Medication Instructions Recorded gabapentin 800 mg tablet 800 mg PO QID 30 Days #120 tab 08/30/17 quetiapine 100 mg tablet 100 mg PO QHS 90 Days #90 tab 08/30/17 ranitidine 300 mg capsule 300 mg PO QHS #90 cap 08/30/17 lovastatin 40 mg tablet 40 mg PO QHS 90 Days #90 tab 09/17/17 budesonide-formoterol HFA 160 2 puff INHALATION Q12H 90 Days #3 10/29/17 mcg-4.5 mcg/actuation aerosol units inhaler clonidine HCl 0.1 mg tablet 0.1 mg PO BID 90 Days #180 tab 10/29/17 Allergies Allergy/AdvReac Type Severity Reaction Status Date / Time ofloxacin [OFLOXACIN] Allergy Mild Verified 11/12/17 08:23 pregabalin [From LYRICA] Allergy Mild Verified 11/12/17 08:23 sulfamethoxazole Allergy Mild Verified 11/12/17 08:23 [From BACTRIM] trimethoprim [From BACTRIM] Allergy Mild Verified 11/12/17 08:23 [facility] History I have reviewed the patient's past medical history: Yes Medical History: Reports:: Anxiety, Cancer, Depression, Gastrointestinal Bleed, Hyperlipidemia, Hypertension Other Medical History: Reports: Fibromyalgia Laterality Cases: Left: Other, Bilateral: Carpal Tunnel Release, Tonsillectomy Other Surgeries: Yes: Appendectomy, Dilation and Curettage, Diagnostic Lap, Hysterectomy-Total, Tubal Ligation Amputation: No Fractures: No - Social History Smoking Status: Current every day smoker Tobacco Type: cigarettes # Packs/Day (cigarettes): 1 Alcohol Intake: current Alcohol Intake Frequency:: a few times a week Substance Use Type: denies use Occupational Status: employed Housing: house Household Members: family - Psychiatric History Pschychiatric History:: Reports:: Anxiety, Depression Family Hx:: Hyperlipidemia, Hypertension ROS Obtained: Yes All systems reviewed & no additional complaints - Constitutional Constitutional: Reports excessive sweating, Denies fever(s) - Cardiovascular Cardiovascular: Reports chest pain, Reports chest pain with activity, Reports dyspnea on exertion - Gastrointestinal Gastrointestingal: Denies: nausea, vomiting Physical Exam - General General appearance: alert, in no apparent distress - Head Head exam: atraumatic, normocephalic, normal inspection - Eye Eye exam: Present: normal appearance, PERRL, EOMI - ENT ENT exam: Present: normal exam, normal oropharynx, mucous membranes moist, TM's normal bilaterally, normal external ear exam - Neck Neck exam: Present: normal inspection, full ROM, trachea midline. Absent: meningismus, lymphadenopathy - Chest Chest inspection: Present: normal inspection, symmetric chest wall rise. Absent : tenderness - Respiratory Respiratory exam: Present: normal lung sounds bilaterally. Absent: respiratory distress - Cardiovascular Cardiovascular exam: Present: regular rate, normal rhythm. Absent: JVD - Abdominal Exam Abdominal exam: Present: soft, normal bowel sounds. Absent: distention, tenderness, guarding - Extremities Exam Extremities exam: Present: normal inspection, full ROM, normal capillary refill. Absent: calf tenderness - Back Exam Back exam: Present: normal inspection. Absent: tenderness - Neurological Exam Neurological exam: Present: alert, oriented X3 - Psychiatric Psychiatric exam: Present: normal affect, normal mood - Skin Skin exam: Present: warm, dry, intact, normal color
[2017-11-12 14:36] LABS: Basophils # 0.1 K/mm3 (0-0.2); Basophils % 1.3 % (0.1-2.0); Eosinophils # 0.3 K/mm3 (0.0-0.4); Eosinophils % 3.3 % (0.1-12.0); Hematocrit 42.8 % (37.0-47.0); Hemoglobin 13.5 g/dL (12.2-16.2); Lymphocytes # 3.9 K/mm3 (0.7-4.5); Lymphocytes % 40.1 K/mm3 (10-50); Mean Corpuscular HGB Conc 31.6 g/dL (31.8-35.4); Mean Corpuscular Hemoglobin 27.4 pg (27.0-31.2); Mean Corpuscular Volume 86.7 fl (81-99); Mean Platelet Volume 7.1 fl (7.4-10.4); Monocytes # 0.6 K/mm3 (0.1-1.0); Monocytes % 6.2 % (1.7-9.3); Neutrophils # 4.8 K/mm3 (1.8-7.8); Neutrophils % 49.1 % (37.0-80.0); Platelet Count 298 K/mm3 (142-424); Red Blood Count 4.94 M/mm3 (4.20-5.40); Red Cell Distribution Width 13.7 % (11.5-17.5); White Blood Count 9.8 K/mm3 (4.8-10.8)
--- NOTE | 2017-11-12 14:37 | Consult Report ---
History of Present Illness Consult date: 11/12/17 Requesting physician: Gilles Osman Consult reason: chest pain Chief complaint: chest pain Additional Medical History:: 1. Hypertension 2. Hyperlipidemia 3. Tobacco use 4. Strong family history of coronary artery disease in her mother at age 56 and her sister at age 35 both with heart attacks History of present illness: 52-year-old white female sent to the emergency department for several day history of exertional chest pain. Symptoms have occurred with doing dishes or with laundry over the weekend and seemed to be getting worse in intensity and frequency. Today symptoms included radiation into the left arm with intensity up to 8 out of 10 which prompted evaluation. EKG in the ER shows sinus rhythm without acute ST elevation. Initial labs pending at this time. Cardiology consulted for unstable angina. Noted to have elevated blood pressure with heart rate in the high 90s to low 100s. She was given IV Lopressor 5 mg 1 along with nitroglycerin paste and aspirin with improvement in chest pain down to a 3 out of 8. Patient is very emotional in the ER to the point of crying. [facility] History Medical History: Reports:: Anxiety, Cancer, Depression, Gastrointestinal Bleed, Hyperlipidemia, Hypertension Other Medical History: Reports: Fibromyalgia Laterality Cases: Left: Other, Bilateral: Carpal Tunnel Release, Tonsillectomy Other Surgeries: Yes: Appendectomy, Dilation and Curettage, Diagnostic Lap, Hysterectomy-Total, Tubal Ligation Amputation: No Fractures: No - *Social History Smoking Status: Current every day smoker Tobacco Type: cigarettes # Packs/Day (cigarettes): 1 Alcohol Intake: current Alcohol Intake Frequency:: a few times a week Substance Use Type: denies use Occupational Status: employed Housing: house Household Members: family - Psychiatric History Pschychiatric History:: Reports:: Anxiety, Depression *Family Hx:: Hyperlipidemia, Hypertension Meds Home Medications Medication Instructions Recorded Confirmed Type bupropion HCl 75 mg tablet 75 mg PO BID tab 05/08/17 05/08/17 History ipratropium-albuterol 0.5 mg-3 3 ml INHALATION Q8H 05/08/17 05/08/17 History mg(2.5 mg base)/3 mL nebulization soln buprenorphine 5.7 mg-naloxone 1.4 2 tab SUBLINGUAL QAM 05/21/17 History mg sublingual tablet Allergies Allergy/AdvReac Type Severity Reaction Status Date / Time ofloxacin [OFLOXACIN] Allergy Mild Verified 11/12/17 08:23 pregabalin [From LYRICA] Allergy Mild Verified 11/12/17 08:23 sulfamethoxazole Allergy Mild Verified 11/12/17 08:23 [From BACTRIM] trimethoprim [From BACTRIM] Allergy Mild Verified 11/12/17 08:23 Review of Systems - *Cardiovascular Reports chest pain, Reports shortness of breath with activity - *Respiratory Reports shortness of breath with activity - *Gastrointestinal Denies abdominal pain - *Genitourinary Denies abnormal periods - *Musculoskeletal Denies joint pain Exam Vital signs and Labs for Last 24 Hours: Temp Pulse Resp BP Pulse Ox 97.8 F 90 20 181/109 96 11/12/17 14:18 11/12/17 14:29 11/12/17 14:29 11/12/17 14:29 11/12/17 14:29 I & O for Last 24 hours: Intake & Output 11/10/17 11/11/17 11/12/17 11/13/17 11:59 11:59 11:59 11:59 Weight 158 lb - *Routine Neck Exam Absent: JVD, carotid bruit - *Routine Respiratory Exam Present: CTA bilaterally - *Routine Cardiovascular Exam Present: RRR. Absent: murmur, gallop, rubs - *Routine Extremities Exam Absent: edema - *Routine Neurological Exam Present: alert, oriented X3, moving all extremities Assessment and Plan (1) Unstable angina pectoris Status: Acute Category: Medical Code(s): I20.0 - Unstable angina (2) Acute coronary syndrome Status: Acute Category: Medical Code(s): I24.9 - Acute ischemic heart disease, unspecified (3) Smoker Status: Acute Category: Social Hx Code(s): F17.200 - Nicotine dependence, unspecified, uncomplicated (4) Hypertension Status: Acute Category: Medical Code(s): I10 - Essential (primary) hypertension (5) Hyperlipidemia Status: Acute Category: Medical Code(s): E78.5 - Hyperlipidemia, unspecified - Assessment and plan all Dx Assessment and Plan for all problems:: 1. Patient has been started on IV beta-cora as well as Transderm nitroglycerin and aspirin in the ER. 2. She will be taken straight to the Underwriting Consult[facility] for left heart catheterization. Further recommendations to follow. 3. Will obtain an echocardiogram after cardiac catheterization 4. Nicotine patch for smoking cessation.
[2017-11-12 15:13] LABS: Anion Gap 12.4 mEq/L (5-15); Calcium 8.8 mg/dL (8.5-10.1); Potassium 3.4 mmoL/L (3.5-5.1)
[2017-11-13 06:36] LABS: Chol/HDL Ratio 8.4 (1-3.5)
--- NOTE | 2017-11-13 08:49 | Progress Note ---
Subjective Date: 11/13/17 Time: 08:46 Principal diagnosis: NSTEMI Interval history: 52-year-old white female in bed in no acute distress. States she feels better than yesterday. She understands that she must discontinue tobacco use. She is anxious to get up and walk around. Exam Vital signs and Labs for Last 24 Hours: Temp Pulse Resp BP Pulse Ox 97.9 F 80 18 110/57 95 11/12/17 20:35 11/13/17 08:00 11/13/17 07:03 11/13/17 07:03 11/13/17 07:03 Laboratory Results - last 24 hr 11/12/17 12:23: WBC 9.8, RBC 4.94, Hgb 13.5, Hct 42.8, MCV 86.7, MCH 27.4, MCHC 31.6 L, RDW 13.7, Plt Count 298, MPV 7.1 L, Neut % (Auto) 49.1, Lymph % (Auto) 40.1, [place] % (Auto) 6.2, Eos % (Auto) 3.3, Baso % (Auto) 1.3, Neut # (Auto) 4.8 , Lymph # (Auto) 3.9, [place] # (Auto) 0.6, Eos # (Auto) 0.3, Baso # (Auto) 0.1 11/12/17 12:23: Sodium 139, Potassium 3.4 L, Chloride 103, Carbon Dioxide 27, Anion Gap 12.4, BUN 10, Creatinine 0.76, Estimated Creat Clear 98, Estimated GFR 80, Est GFR ( Amer) 96, Glucose 144 H, Calcium 8.8, Troponin I 1.48 H 11/12/17 16:10: Activated Clotting Time 284 H* 11/12/17 17:12: Troponin I 3.31 H 11/12/17 20:00: Troponin I 7.20 H 11/12/17 22:34: Troponin I 9.55 H 11/13/17 05:35: Triglycerides 212 H, Cholesterol 234 H, LDL Cholesterol 164 H, VLDL Cholesterol 42 H, HDL Cholesterol 28 L, Cholesterol/HDL Ratio 8.4 H I & O for Last 24 hours: Intake & Output 11/10/17 11/11/17 11/12/17 11/13/17 11:59 11:59 11:59 11:59 Intake Total 1131 / 1131 Balance 1131 / 1131 Weight 160 lb 1 oz - *Routine Respiratory Exam Present: CTA bilaterally - *Routine Cardiovascular Exam Present: RRR, murmur - *Routine Extremities Exam Absent: edema - *Routine Neurological Exam Present: alert, oriented X3, moving all extremities Progress Note: A&P (1) Unstable angina pectoris Status: Acute Current Visit: No (2) Acute coronary syndrome Status: Acute Current Visit: No (3) Smoker Status: Acute Current Visit: No (4) Hypertension Status: Acute Current Visit: No (5) Hyperlipidemia Status: Acute Current Visit: No (6) NSTEMI (non-ST elevated myocardial infarction) Status: Acute Current Visit: Yes (7) Cardiac murmur Status: Acute Current Visit: Yes Assessment and Plan for All Diagnoses:: Patient on aspirin and Brilinta. Low-dose lisinopril and metoprolol started. Atorvastatin 80 mg daily started. Smoking cessation discussed and encouraged. We will obtain an echocardiogram to evaluate cardiac murmur in the aortic area. Would like patient ambulate in hallway today and if no arrhythmias then could be discharged home later today.
--- NOTE | 2017-11-13 11:59 | Pharmacy Consult Notes ---
[facility] Pharmacy VTE Monitoring - Patient Demographics Admission date: 11/12/17 Report Date: 11/13/17 Time: 11:59 Allergies/Adverse Reactions: Patient Allergies ofloxacin [OFLOXACIN] Allergy (Mild, Verified 11/12/17 08:23) pregabalin [From LYRICA] Allergy (Mild, Verified 11/12/17 08:23) sulfamethoxazole [From BACTRIM] Allergy (Mild, Verified 11/12/17 08:23) trimethoprim [From BACTRIM] Allergy (Mild, Verified 11/12/17 08:23) Height: 1.65 m Weight: 72.603 kg Patient Problems: Current Active Problems (Last Updated 09/03/17 @ 08:35 by MIRLANDE Murray) Precordial chest pain (Acute) NSTEMI (non-ST elevated myocardial infarction) (Acute) Cardiac murmur (Acute) - VTE Risk Labs: VTE Related Lab Results Hgb 13.5 g/dL (12.2-16.2) 11/12/17 12:23 Hct 42.8 % (37.0-47.0) 11/12/17 12:23 Plt Count 298 K/mm3 (142-424) 11/12/17 12:23 BUN 10 mg/dL (7-18) 11/12/17 12:23 Creatinine 0.76 mg/dL (0.55-1.02) 11/12/17 12:23 Estimated Creat Clear 98 mL/min (0-300) 11/12/17 12:23 Was VTE Risk Assessment Performed: Yes VTE Score: 2 VTE Risk Level: Very Low Risk - Prophylaxis VTE Prophylaxis Ordered?: Yes Types of VTE Prophylaxis: TEDS Knee High Location of Applied Device: Bilateral Lower Extremeties
--- NOTE | 2017-11-13 16:21 | H&P/Discharge Summary ---
General - General Admission date:: 11/12/17 Discharge date: 11/13/17 *Admission Date: 11/12/17 *Chief complaint: chest pain *History of present illness: this wf presented to office with ongoing ant chest tightness with act and rest which has been occuring more each day - she has several risk factors with anca of al least 3 - she was sent directly to ed and i called ed dr and dr chappell - est pain intermittently that started on Saturday 4 days ago. She says she gets a handful of episodes a day, the longest has lasted about an hour. Brought on by physical activity and relieved by rest. Associated with shortness of breath and diaphoresis, but no nausea. Radiates to her back under her shoulder blade, in fact it started more in her back. Currently having an episode of discomfort that started when she got to the emergency room. Currently rates at 3/10. She has hypertension, hyperlipidemia, family history of heart disease, and is a smoker. She does not have any known heart disease herself.she was sen by card - Hypertension 2. Hyperlipidemia 3. Tobacco use 4. Strong family history of coronary artery disease in her mother at age 56 and her sister at age 35 both with heart attacks History of present illness: 52-year-old white female sent to the emergency department for several day history of exertional chest pain. Symptoms have occurred with doing dishes or with laundry over the weekend and seemed to be getting worse in intensity and frequency. Today symptoms included radiation into the left arm with intensity up to 8 out of 10 which prompted evaluation. EKG in the ER shows sinus rhythm without acute ST elevation. Initial labs pending at this time. Cardiology consulted for unstable angina. Noted to have elevated blood pressure with heart rate in the high 90s to low 100s. She was given IV Lopressor 5 mg 1 along with nitroglycerin paste and aspirin with improvement in chest pain down to a 3 out of 8. Patient is very emotional in the ER to the point of crying. [facility] History I have reviewed the patient's past medical history: Yes Medical History: Reports:: Anxiety, Depression, Gastrointestinal Bleed, Hyperlipidemia, Hypertension Denies:: Cancer, Diabetes Mellitus Type 1, Diabetes Mellitus Type 2, MRSA, Seizures Other Medical History: Reports: Fibromyalgia Laterality Cases: Left: Other, Bilateral: Carpal Tunnel Release, Tonsillectomy Other Surgeries: Yes: Appendectomy, Dilation and Curettage, Diagnostic Lap, Hysterectomy-Total, Tubal Ligation Amputation: No Fractures: No - *Social History Educational Level: Attended College Smoking Status: Current every day smoker Tobacco Type: cigarettes # Packs/Day (cigarettes): 1 Alcohol Intake: never Alcohol Intake Frequency:: a few times a week Substance Use Type: denies use Occupational Status: employed Housing: house Household Members: family - Psychiatric History Expresses thoughts of harming self/others: None Suicide Plan Description: No Plan Pschychiatric History:: Reports:: Anxiety, Depression *Family Hx:: Hyperlipidemia, Hypertension Review of Systems - Review of Systems Review of systems:: pertinent systems reviewed and negative unless documented below - Constitutional Denies fever(s) - Eyes Denies change in vision - ENT Denies sore throat - *Cardiovascular Reports chest pain, Reports chest pain at rest - *Respiratory Reports shortness of breath, Denies cough - *Gastrointestinal Denies abdominal pain - *Genitourinary Denies blood in urine - *Musculoskeletal Denies joint pain - Integumentary/Breasts Denies rash - *Neurologic Denies confusion, Denies headache(s) - Psychiatric Denies anxiety Exam Vital signs and Labs for Last 24 Hours: Temp Pulse Resp BP Pulse Ox 97.9 F 81 16 134/68 98 11/12/17 20:35 11/13/17 15:00 11/13/17 15:00 11/13/17 15:00 11/13/17 15:00 Laboratory Results - last 24 hr 11/12/17 16:10: Activated Clotting Time 284 H* 11/12/17 17:12: Troponin I 3.31 H 11/12/17 20:00: Troponin I 7.20 H 11/12/17 22:34: Troponin I 9.55 H 11/13/17 05:35: Triglycerides 212 H, Cholesterol 234 H, LDL Cholesterol 164 H, VLDL Cholesterol 42 H, HDL Cholesterol 28 L, Cholesterol/HDL Ratio 8.4 H I & O for Last 24 hours: Intake & Output 11/11/17 11/12/17 11/13/17 11/14/17 11:59 11:59 11:59 11:59 Intake Total 1131 / 1131 460 / 460 Balance 1131 / 1131 460 / 460 Weight 160 lb 1 oz - Constitutional no acute distress - *Routine HEENT Exam Head: Present: normocephalic Eye: Present: EOMI, PERRL ENT: Present: mucous membranes dry - *Routine Neck Exam Present: supple. 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 2. She will be taken straight to the [facility] for left heart catheterization. Further recommendations to follow. 3. Will obtain an echocardiogram after cardiac catheterization 4. Nicotine patch for smoking cessation. ANGIOGRAPHIC RESULTS: 1. The left main artery has an ostial 20% stenosis 2. The left anterior descending artery is proximally normal however has a very hazy 50% stenosis immediately after the second diagonal artery which suggests a much more severe stenosis. The second diagonal artery is large and has proximal 30% stenoses 3. The circumflex artery is a very small nondominant vessel and normal 4. The right coronary artery is a very large dominant vessel and has an ostial severe stenosis greater than 50% accompanied by significant poststenotic dilatation. A long 20-30% stenosis is then present in the proximal segment followed by a focal very hazy 90% mid vessel stenosis. Additional 30% stenoses are present distally. The posterior lateral ventricular branch has proximal 50% mid vessel 50% and distal 90% stenoses. The posterior descending artery has 40% mid vessel stenoses 5. The AREVALO ventriculogram reveals preserved ejection fraction with anterior apical hypokinesis estimated ejection fraction 55% 6. The left ventricular end-diastolic pressure 25 mmHg IMPRESSION: 1. Acute myocardial infarction as evidenced by elevated troponin severe right coronary artery stenosis as well as anterior wall hypokinesis 2. Successful stenting of the mid LAD ruptured plaque with hazy stenosis reduced to 0% with 1 drug-eluting stent 3. Successful stenting of the ostial and mid dominant right coronary artery severe disease reduced to 0% with 2 drug-eluting stents as described above 4. Preserved ejection fraction with regional wall motion mildly 5. Moderately elevated LVEDP PLAN: 1. Brilinta 90 mg twice a day plus aspirin 81 mg daily for one year 2. Immediate and absolute tobacco cessation 3. LDL less than 55 to be achieved with Lipitor 80 mg daily pt did well and had echo and will be d/c with follow up tient on aspirin and Brilinta. Low-dose lisinopril and metoprolol started. Atorvastatin 80 mg daily started. Smoking cessation discussed and encouraged. We will obtain an echocardiogram to evaluate cardiac murmur in the aortic area. Would like patient ambulate in hallway today and if no arrhythmias then could be discharged home later today. Results Labs on day of discharge: Labs from last 24 hours 11/13/17 11/12/17 11/12/17 05:35 22:34 20:00 Activated Clotting Time Troponin I 9.55 H 7.20 H Triglycerides 212 H Cholesterol 234 H LDL Cholesterol 164 H VLDL Cholesterol 42 H HDL Cholesterol 28 L Cholesterol/HDL Ratio 8.4 H 11/12/17 11/12/17 17:12 16:10 Activated Clotting Time 284 H* Troponin I 3.31 H Triglycerides Cholesterol LDL Cholesterol VLDL Cholesterol HDL Cholesterol Cholesterol/HDL Ratio DS: Diagnosis - Discharge Diagnosis (1) Unstable angina pectoris Status: Acute (2) Acute coronary syndrome Status: Acute (3) Smoker Status: Acute (4) Hypertension Status: Acute (5) Hyperlipidemia Status: Acute (6) NSTEMI (non-ST elevated myocardial infarction) Status: Acute (7) Cardiac murmur Status: Acute Discharge Medications Discharge Medications: Home Medications Medication Instructions Recorded Confirmed Type bupropion HCl 75 mg tablet 75 mg PO BID tab 05/08/17 11/13/17 History ipratropium-albuterol 0.5 mg-3 3 ml INHALATION Q8H 05/08/17 11/13/17 History mg(2.5 mg base)/3 mL nebulization soln buprenorphine 5.7 mg-naloxone 1.4 2 tab SUBLINGUAL QAM 05/21/17 History mg sublingual tablet Disposition Disposition: Home, Self-Care
--- NOTE | 2017-11-14 17:15 | Cardiology Report ---
PROCEDURE: 2-D M-mode and color Doppler study INDICATIONS FOR THE TEST: Chest pain + COPD Heart Murmur Tobacco Smoking+ Palpitations Fatigue+ Syncope Edema Hypertension+Diabetes Mellitus Rheumatic Fever SOB+TEIXEIRA Obesity Hyperlipidemia+ Family History HD Additional History STENT 11/12/17, STENTS PATIENT INFORMATION HEIGHT: 65 WEIGHT:160 GENDER: Female B/P:181/109 2-D/M-MODE INTERPRETATION: 2-D MEASUREMENTS OBSERVED VALUES IN CMS Right Ventricular Dimension (RVDd) 2.0 Interventricular Septum (Thickness)(IVsd) 1.0 Left Ventricular Internal Dimensions(LVIDd) 5.5 Left Ventricular Posterior Wall (Thickness)(LVPWd) 0.9 Aortic Root 3.2 Aortic Cusp Separation 2.0 Left Atrial Dimensions (LAD) 3.7 2D 1. Left atrium is qualitatively mildly enlarged, left ventricle is normal size, mild concentric left ventricular hypertrophy, visually estimated ejection fraction 55% with no obvious regional wall motion abnormality. 2. The right atrium and right ventricle are normal size and contractility. 3. The aortic valve is minimally thickened and fibrosed. There is no aortic stenosis. 4. The mitral and tricuspid valve are grossly normal. 5. The pulmonic valve is poorly visualized. 6. No significant pericardial effusion noted. DOPPLER INTERROGATION: Doppler interrogation of the aortic, mitral and tricuspid valve is presence of mild mitral and tricuspid regurgitation, tricuspid and jet velocity is insufficient for calculation of the right ventricular systolic pressure, grade 1 diastolic dysfunction seen with tissue Doppler evidence of raised left atrial pressure. CONCLUSION: 1. Qualitatively mildly enlarged left atrium, normal left ventricular size, mild concentric left ventricular hypertrophy, visually estimated ejection fraction 55% with no obvious regional wall motion abnormality, grade 1 diastolic dysfunction seen with tissue Doppler evidence of raised left atrial pressure. 2. Mild mitral and tricuspid regurgitation 3. No significant pericardial effusion noted.
== END 2017-11-13 17:20 | disposition home or self-care (01) ==
LOC: 2ND 14:18 → ER 14:18 → CATHLAB 15:00 → 2ND 16:54
PROVIDERS: ADMIT Emergency Medicine; ATTEND Emergency Medicine

== ENCOUNTER → 2017-12-20 12:41 | Outpatient (CLI) | payer MEDICAID, SELFPAY ==
--- NOTE | 2017-12-20 12:45 | CT_ITS ---
CT chest wo con HISTORY: Follow-up lung nodule ITS.REASON: ABNORMAL LUNG IMAGING ORDERING PHYSICIAN: Deniz Massey MD PATIENT AGE: 52 years COMPARISON: 04/10/2016 Technique: Axial images obtained with sagittal and coronal reformats. All CT scans at the facility use one or more dose reduction, viz: automated exposure control, ma/kV adjustment per patient size (including targeted exams where dose is matched to indication, i.e. head), or iterative reconstruction technique. FINDINGS: Scattered small lymph nodes are present in the axilla. Asymmetric opacity is once again noted in the left breast and does not appear significantly changed at least by CT. Scattered small lymph nodes are present in the mediastinum the largest node in the precarinal region 15 x 13 mm previously 15 x 10 mm. There are some scattered nodes in the xavier. There are coronary artery calcifications with normal heart size and no evidence of pericardial effusion. Centrilobular emphysema. No change in the 2 nodules in the right apex each measuring approximately 4 mm. There is a new peripheral area of consolidation in the right upper lobe anteriorly with some subpleural area of atelectasis or subpleural infiltrate noted in the left upper lobe anteriorly. Calcified granuloma right lower lobe. There is generalized bronchial thickening. There is a 6 mm noncalcified nodule in the left lower lobe superiorly and laterally appears slightly larger with some minimal irregularity. Six-month follow-up is suggested. A 3 to 4 mm nodule present in the left apex change. No effusions. Upper abdominal images show no acute finding. Small epigastric lymph nodes. No acute bony anomalies. IMPRESSION: 1. Centrilobular emphysema with old granulomatous disease. 2. No change in the 2 right upper lobe pulmonary nodules. 3. Slight increase in size of left lower lobe pulmonary nodule at 6 mm. Recommend 6 month follow-up. 4. Mild mediastinal and axillary adenopathy. No change left breast nodule
== END ==
PROVIDERS: Family Provider Emergency Medicine; PCP Emergency Medicine; Visit Provider Internal Medicine
DX: R91.8 Other nonspecific abnormal finding of lung field (principal)
CPT/HCPCS: 71250

== ENCOUNTER → 2018-01-14 15:05 | Outpatient (POV) | payer MEDICAID, SELFPAY | PROVIDERS: Family Provider Emergency Medicine; PCP Emergency Medicine; Visit Provider Internal Medicine | DX: Z00.00 Encounter for general adult medical examination without abnormal findings (principal) ==

== ENCOUNTER → 2018-03-07 06:14 | Outpatient (CLI) | payer MEDICAID, SELFPAY ==
--- NOTE | 2018-03-07 06:16 | CI_ITS ---
Cerebrovascular Exam Indications: 785.9 Bruit. IMPRESSIONS 1. The bilateral vertebral arteries are patent with normal antegrade flow. 2. Study suggests 20-49% stenosis involving the right internal carotid artery. 3. Study suggests 20-49% stenosis involving the left internal carotid artery. History: A bruit of the right carotid artery. Risk factors: Current tobacco use. Hypertension. Carotid duplex study. Complete study and Doppler flow study including spectral analysis, color and mathew scale imaging. Height: Height: 165.1cm. Height: 65in. Weight: Weight: 70.8kg. Weight: 155.7lb. Body mass index: BMI: 26kg/m^2. Body surface area: BSA: 1.82m^2. Location: Vascular laboratory. Patient status: Outpatient. Tables: Arterial flow: + +--------+--------+ Location V sys V ed + +--------+--------+ Right CCA - proximal 140cm/s 34.9cm/s + +--------+--------+ Right CCA - distal 76.8cm/s 23.7cm/s + +--------+--------+ Right ECA 126cm/s -------- + +--------+--------+ Right ICA - proximal 113cm/s 32.1cm/s + +--------+--------+ Right ICA - mid 103cm/s 37cm/s + +--------+--------+ Right ICA - distal 138cm/s 44.8cm/s + +--------+--------+ Right vertebral 72.3cm/s -------- + +--------+--------+ Left CCA - proximal 113cm/s 28.3cm/s + +--------+--------+ Left CCA - distal 92.7cm/s 27.5cm/s + +--------+--------+ Left ECA 122cm/s -------- + +--------+--------+ Left ICA - proximal 101cm/s 30.6cm/s + +--------+--------+ Left ICA - mid 120cm/s 40.1cm/s + +--------+--------+ Left ICA - distal 86.4cm/s 34.6cm/s + +--------+--------+ Left vertebral 84.1cm/s -------- + +--------+--------+ Velocity ratios: + + + + + + Right, V sys Right, V ed Left, V sys Left, V ed + + + + + + Max ICA/dist CCA 1.8 1.89 1.29 1.46 + + + + + + (Report amended ) Electronically signed by: Jeuss Medellin [id number]
--- NOTE | 2018-03-07 06:16 | NM_ITS ---
History and Indications: Coronary artery disease, previous NM, hypertension, hyperlipidemia, tobacco use, family history, palpitations and fatigue Procedure: Patient exercised on Waqas protocol 8 minutes, resting heart rate was 62 bpm resting blood pressure 165/88, with exercise maximum heart rate achieved was 1 44 bpm which is equal to 74% of the maximum predicted heart rate and a blood pressure was 190/86. Test was started due to shortness of breath and fatigue, patient denied any complained of chest pain. Patient has good exercise capacity achieved 10.1mets of workload on treadmill, the blood pressure response to exercise was adequate, patient did not achieve the target heart rate. Electrocardiogram: Resting electrocardiogram showed sinus rhythm, with exercise there is less than 1.[address] segment depression noted from the baseline EKG. The EKG portion of the exercise Myoview is nondiagnostic as patient did not achieve the target heart rate. Cardiac stress and resting SPECT images: Cardiac stress and resting SPECT images were obtained using technetium 99 Myoview 30 mCi stress and 10.9 mCi rest gated SPECT further analysis of segmental wall motion and calculation of the ejection fraction also done. Cardiac stress and rest SPECT images show uniform myocardial activity without segmental perfusion abnormality, computer derived ejection fraction is 63% with no regional wall motion abnormality, right ventricle is normal size and contractility. Conclusion: 1. The EKG portion of the exercise Myoview is nondiagnostic as patient did not achieve the target heart rate, and shortness good exercise capacity achieved 10.1mets of workload on treadmill, the blood pressure response to exercise was adequate, there was no exercise-induced chest discomfort. 2. No scintigraphic evidence of reversible ischemia seen at this level of exercise, computer derived ejection fraction 63% with no regional wall motion abnormality, right ventricle is normal size and contractility.
--- NOTE | 2018-03-07 09:37 | HMH.ITSHM ---
Current Home Medications as stated by this patient Fanny Vincent or medical collections representative. []amlodipine asa atorvastatin bupropion clopidogrel vistaril zubsolv
== END ==
PROVIDERS: PCP Emergency Medicine; Visit Provider Internal Medicine
DX: I25.118 Atherosclerotic heart disease of native coronary artery with other forms of angina pectoris (principal); E78.2 Mixed hyperlipidemia; F17.200 Nicotine dependence, unspecified, uncomplicated; I10 Essential (primary) hypertension; I11.9 Hypertensive heart disease without heart failure; I21.4 Non-ST elevation (NSTEMI) myocardial infarction; R01.1 Cardiac murmur, unspecified; R29.898 Other symptoms and signs involving the musculoskeletal system; R09.89 Other specified symptoms and signs involving the circulatory and respiratory systems
CPT/HCPCS: 78452; 93017; 93880; A9502

== ENCOUNTER → 2018-09-10 13:57 | Outpatient (CLI) | payer MEDICAID, SELFPAY ==
--- NOTE | 2018-09-10 14:00 | XR_ITS ---
XR wrist RT min 3V HISTORY pain following injury ITS.REASON: injury to rt wrist ORDERING PHYSICIAN: Gilles Osman MD PATIENT AGE: 52 years Comparison: None FINDINGS: No fracture or dislocation. No lytic or blastic change. There is normal mineralization.. There is mild prominence of the scapholunate space which may be seen with ligamentous injury. No other significant anomalies are evident. IMPRESSION: Mild prominence of scapholunate space which may be seen with ligamentous injury otherwise negative.
--- NOTE | 2018-09-10 14:00 | XR_ITS ---
XR hand RT min 3V HISTORY: Pain following injury ITS.REASON: injury to right hand and wrist ORDERING PHYSICIAN: Gilles Osman MD PATIENT AGE: 52 years COMPARISON: None FINDINGS: No fracture or dislocation. No lytic or blastic change. There is normal mineralization.. The joint spaces are well-preserved. No significant degenerative/arthritic changes. No erosive changes evident.. IMPRESSION: Negative, no acute finding
== END ==
PROVIDERS: PCP Emergency Medicine; Visit Provider Emergency Medicine
DX: S69.91XA Unspecified injury of right wrist, hand and finger(s), initial encounter (principal)
CPT/HCPCS: 73110; 73130

== ENCOUNTER → 2018-10-13 20:13 | Outpatient (CLI) | payer MEDICAID, SELFPAY ==
[2018-10-13 20:56] LABS: Basophils # 0.1 K/mm3 (0-0.2); Basophils % 1.3 % (0.1-2.0); Eosinophils # 0.3 K/mm3 (0.0-0.4); Eosinophils % 3.6 % (0.1-12.0); Hemoglobin 11.1 g/dL (12.2-16.2); Lymphocytes # 3.4 K/mm3 (0.7-4.5); Lymphocytes % 43.4 % (10-50); Mean Corpuscular HGB Conc 31.8 g/dL (31.8-35.4); Mean Corpuscular Hemoglobin 26.9 pg (27.0-31.2); Mean Corpuscular Volume 84.8 fl (81-99); Mean Platelet Volume 7.8 fl (7.4-10.4); Monocytes # 0.5 K/mm3 (0.1-1.0); Monocytes % 6.9 % (1.7-9.3); Neutrophils # 3.5 K/mm3 (1.8-7.8); Neutrophils % 44.9 % (37.0-80.0); Platelet Count 278 K/mm3 (142-424); Red Blood Count 4.13 M/mm3 (4.20-5.40); Red Cell Distribution Width 13.8 % (11.5-17.5); White Blood Count 7.8 K/mm3 (4.8-10.8)
[2018-10-13 21:10] LABS: Alanine Aminotransferase 17 U/L (12-78); Albumin Level 3.8 gm/dL (3.4-5.0); Alkaline Phosphatase 109 U/L (46-116); Anion Gap 14.6 mEq/L (5-15); Aspartate Amino Transferase 11 U/L (15-37); Bilirubin,Total 0.3 mg/dL (0.2-1.0); Blood Urea Nitrogen 9 mg/dL (7-18); Calcium 8.9 mg/dL (8.5-10.1); Carbon Dioxide 25 mmol/L (21.0-32.0); Chloride 103 mmol/L (98-107); Creatinine,Serum 0.71 mg/dL (0.55-1.02); Estimated Glomerular Filt Rate 86 ml/min (>60); GFR (African American) 104 ML/MIN (>60); Globulin 3.7 gm/dl (1.3-3.2); Glucose 113 mg/dL (74-106); Potassium 3.6 mmoL/L (3.5-5.1); Sodium 139 mmol/L (136-145); Thyroid Stimulating Hormone 2.29 uIU/ml (0.358-3.740); Total Protein,Serum 7.5 gm/dL (6.4-8.2)
[2018-10-15 13:14] LABS: Hemoglobin A1C 5.8 % (0.0-7.0)
[2018-10-15 15:15] LABS: Ferritin 148 ng/mL (8-388)
[2018-10-16 07:12] LABS: Iron 42 ug/dL (27-159); UIBC 237 ug/dL (131-425)
[2018-10-16 07:45] LABS: Vitamin D 25 Hydroxy 23.5 ng/mL (30.0-100.0)
[2018-10-16 07:47] LABS: Iron Saturation 15 % (15-55)
== END ==
PROVIDERS: Visit Provider Emergency Medicine
DX: I10 Essential (primary) hypertension (principal); D64.9 Anemia, unspecified; R73.09 Other abnormal glucose; E55.9 Vitamin D deficiency, unspecified
CPT/HCPCS: 80053; 82652; 82728; 83036; 83540; 83550; 84439; 84443; 85025

== ENCOUNTER → 2019-02-10 17:38 | Outpatient (CLI) | payer MEDICAID, SELFPAY ==
[2019-02-10 20:04] LABS: Cholesterol 231 mg/dL (140-200); HDL Cholesterol 33 mg/dL (29-89)
[2019-02-10 20:22] LABS: Triglycerides 524 mg/dL (30-200)
== END ==
PROVIDERS: Visit Provider Emergency Medicine
DX: E78.5 Hyperlipidemia, unspecified (principal)
CPT/HCPCS: 80061

== ENCOUNTER → 2019-02-13 06:53 | Outpatient (CLI) | payer MEDICAID, SELFPAY ==
--- NOTE | 2019-02-13 | CA_ITS ---
APPROVED REPORT Exam: Exercise Treadmill Technologist: dania braxton, Ht: 5 ft 5 in Wt: 162 lbs BSA: 1.81 m2 HR: 83 bpm BP: 181/92 mmHg Rhythm: NSR,? SEPTAL LA Indications: Abn EKG Medical History Medical History: HTN, Hyperlipidemia, Smoking Medications: Amlodipine,,,,, Lisinopril,,,,, Metoprolol,,,,, Asa,,,,, Hydrocodone,,,,, Gabapentin,,,,, Duoneb,,,,, Lasix,,,,, SyMBICORT,,,,, Hydroxyzine,,,,, Allergies: OFLOXACIN,PREGABALIN,SULFA,TRIAM Cardiac Risk Factors: HTN, Hyperlipidemia, Smoking Stress Test Details Test: Waqas HR Resting HR: 92 bpm Max Heart Rate (APMHR): 166 bpm Max HR Achieved: 158 bpm Target HR (85% APMHR): 141 bpm % of APMHR: 95 Recovery HR: 104 bpm BP Resting BP: 181.0/92.0 mmHg Max BP: 181.0/92.0 mmHg Recovery BP: 180.0/94.0 mmHg ECG Resting ECG: NSR ?SEPTAL INFARCT Clinical Reason for Termination: Dyspnea Exercise duration: 07:30 min Highest Stage Achieved: Exercise capacity: 10.1 METs Stress ECG Conclusion VENTRICULAR [id number]. L ARM ACHING. RARE PVC. STOPPED DUE TO SOA. EXERCISED 7:30. 10.1 METS. <1.5MM ST SEGMENT DEPRESSION INFER/LATERALLY AT PEAK STRESS THAT RESOLVED IN RECOVERY. ABNORMAL STRESS TEST TEST DUE TO SYMPTOMS AND EKG. SEE IMAGES. Test Summary RECOVERY 09:00 0.0 0.0 88 . 174/ 82 . . REST . . . . . . . Sitting REST 05:29 0.0 0.0 92 . 181/ 92 . . Stage 1 01:00 10.0 1.7 108 . . . . Stage 1 02:00 10.0 1.7 114 . . . . Stage 1 03:00 10.0 1.7 117 . . . . Stage 2 01:00 12.0 2.5 126 . 168/ 84 . . Stage 2 02:00 12.0 2.5 137 . 168/ 84 . . Stage 2 03:00 12.0 2.5 137 . 178/ 90 . . Stage 3 . . . . . . . Cardiolite injected Stage 3 01:00 14.0 3.4 154 . . . . Stage 3 01:30 14.0 3.4 156 . . . Stop exercise at 07:30 RECOVERY 01:00 0.0 0.0 130 . . . . RECOVERY 02:00 0.0 0.0 110 . . . . RECOVERY 03:00 0.0 0.0 106 . 180/ 94 . . RECOVERY 04:00 0.0 0.0 99 . 180/ 94 . . RECOVERY 05:00 0.0 0.0 93 . 174/ 82 . . RECOVERY 06:00 0.0 0.0 95 . 174/ 82 . . RECOVERY 07:00 0.0 0.0 91 . 174/ 82 . . RECOVERY 08:00 0.0 0.0 93 . 174/ 82 . . RECOVERY 09:00 0.0 0.0 88 . 174/ 82 . . RECOVERY 09:30 0.0 0.0 91 . 158/ 80 . . Electronically signed by : Guero Peralta, 02/13/2019 19:47:58
--- NOTE | 2019-02-13 07:01 | NM_ITS ---
APPROVED REPORT Exam: Nuclear Stress Test Indication: ABN EKG, H/O M.I., HYPERLIPIDEMIA, TOB USE, SOB, FATIQUE Patient Location: Outpatient Stress Tech: Amy Palma MT Tech:Milagros Cruz, ARRGallo RT(R)(N) Ht: 5 ft 5 in Wt: 162 lbs Bra Size: 38C HR: 83 bpm BP: 181/92 mmHg BSA: 1.81 m2 BMI: 26.9 History: ABN EKG, H/O M.I., HYPERLIPIDEMIA, TOB USE, SOB, FATIQU Procedure: Patient exercised on Waqas protocol 7:30 minutes and sec, resting heart rate 83 bpm, resting blood pressure 181/92 mmHg, with exercise maximum heart rate achived was 158 bpm which is Greater than 85 % of the maximum predicted heart rate and blood pressure was 178/90 mmHg. Patient has Good exercise capacity, achieved 10.1 METs of workload on treadmill, the blood pressure response to exercise was Adequate. Electrocardiogram Resting electro cardiogram showed sinus rhythm, with exercise [address] segment depression noted from the baseline EKG. Occasional premature ventricular complex present. The EKG portion of the exercise Myoview is positive for ischemia. Cardiac Stress and Resting SPECT Images: Cardiac Stress and Resting SPECT images were obtained using technetium 99m Myoview 30.8 mCi stress and 10.16 mCi at rest. Gated SPECT for analysis of segmental wall motion and calculation of the ejection fraction also done. Cardiac stress and resting SPECT images show uniform myocardial activity without segmental perfusion abnormality, computer derived ejection fraction is 64% with no regional wall motion abnormality, right ventricle is normal size and contractility. Conclusion: 1. The EKG portion of the exercise Myoview is positive for ischemia, patient has adequate exercise capacity achieved 10.1 mets of workload on treadmill, the blood pressure response to exercise was adequate, patient complained shortness of breath and left arm pain with exercise. 2. No scintigraphic evidence of reversible ischemia seen at this level of exercise, computer derived ejection fraction is 64% with no regional wall motion abnormality, right ventricle is normal size and contractility. Electronically signed by : Guero Peralta, 02/13/2019 19:50:38
--- NOTE | 2019-02-13 10:23 | HMH.ITSHM ---
Current Home Medications as stated by this patient Fanny Vincent or life assurance representative. []metoprolol lisinopril albuterol gabapentin furosemide clopidogrel bupropion asa amlodipine
== END ==
PROVIDERS: PCP Emergency Medicine; Visit Provider Internal Medicine
DX: I11.9 Hypertensive heart disease without heart failure (principal); I25.10 Atherosclerotic heart disease of native coronary artery without angina pectoris; R60.9 Edema, unspecified; R61 Generalized hyperhidrosis
CPT/HCPCS: 78452; 93017; A9502

== ENCOUNTER → 2019-02-24 12:53 | Outpatient (CLI) | payer MEDICAID, SELFPAY ==
--- NOTE | 2019-02-24 12:54 | MM_ITS ---
PROCEDURE: MM DIG SCREENING MAMM BI W/CAD Patient Age:53Y CLINICAL INDICATION: screening 53-year-old. No hormones but no new complaints but Family history. Maternal aunt and maternal grandmother with breast cancer COMPARISON: DIGMAMMDX MAMMOGRAM DX-FORM GRADER OPERATOR N/C from 11/22/2005 DIGMAMMS MAMMOGRAM SCREEN-FORM GRADER OPERATOR N/C from 12/18/2006 DMSB DIG MAMM-SCREEN [place] from 08/13/2014 DMSB DIG MAMM-SCREEN [place] from 03/09/2016 DMSB DIG MAMM-SCREEN [place] W/CAD from 03/11/2017 TECHNIQUE: Standard CC and MLO images were obtained. R2 CAD reviewed. FINDINGS: [id number] residual fibroglandular elements more evident towards the anterior and superior breast. Moderate fatty replacement elsewhere throughout both breast No dominant mass or suspicious calcifications either breast but areas of mild asymmetry appear stable Left breast. Stable with no significant new findings. The island the slight asymmetric fibroglandular tissue at upper-outer quadrant left breast again observed, longstanding stable. Right breast appear stable with no new areas of concern. Mild thickening lateral margin areola again noted unchanged. IMPRESSION: Stable bilateral mammogram. Stable mild asymmetry but no new areas of significant concern. Bilateral annual mammogram 1 year recommended BI-RAD Category: 2 Benign Finding(s) FOLLOW-UP: 1YR 1 Year Follow-up (A letter has been sent to the patient regarding results of the study.) Dictated by: Gaurav Hinojosa MD 03/01/2019 09:59 Electronically signed by Gaurav Hinojosa MD in [place] 03/01/2019 09:59
== END ==
PROVIDERS: PCP Emergency Medicine; Visit Provider Emergency Medicine
DX: Z12.31 Encounter for screening mammogram for malignant neoplasm of breast (principal)
CPT/HCPCS: 77067

== ENCOUNTER → 2019-03-09 13:35 | Outpatient (CLI) | payer MEDICAID, SELFPAY ==
[2019-03-09 14:29] LABS: Basophils # 0.1 K/mm3 (0-0.2); Basophils % 1.3 % (0.1-2.0); Eosinophils # 0.2 K/mm3 (0.0-0.4); Eosinophils % 3.2 % (0.1-12.0); Hematocrit 39.2 % (37.0-47.0); Hemoglobin 12.8 g/dL (12.2-16.2); Lymphocytes # 3.4 K/mm3 (0.7-4.5); Lymphocytes % 44.7 % (10-50); Mean Corpuscular HGB Conc 32.6 g/dL (31.8-35.4); Mean Corpuscular Hemoglobin 29.5 pg (27.0-31.2); Mean Corpuscular Volume 90.3 fl (81-99); Mean Platelet Volume 7.2 fl (7.4-10.4); Monocytes # 0.5 K/mm3 (0.1-1.0); Monocytes % 6.8 % (1.7-9.3); Neutrophils # 3.3 K/mm3 (1.8-7.8); Platelet Count 293 K/mm3 (142-424); Red Blood Count 4.34 M/mm3 (4.20-5.40); Red Cell Distribution Width 13.5 % (11.5-17.5); White Blood Count 7.6 K/mm3 (4.8-10.8)
[2019-03-09 15:09] LABS: Anion Gap 11.8 mEq/L (5-15); Blood Urea Nitrogen 7 mg/dL (7-18); Calcium 8.8 mg/dL (8.5-10.1); Carbon Dioxide 28 mmol/L (21.0-32.0); Chloride 101 mmol/L (98-107); Creatinine,Serum 0.74 mg/dL (0.55-1.02); Estimated Glomerular Filt Rate 82 ml/min (>60); GFR (African American) 99 ML/MIN (>60); Potassium 3.8 mmoL/L (3.5-5.1); Sodium 137 mmol/L (136-145)
[2019-03-09 15:21] LABS: Glucose 131 mg/dL (74-106)
== END ==
PROVIDERS: Visit Provider Internal Medicine
DX: I10 Essential (primary) hypertension (principal)
CPT/HCPCS: 36415; 80048; 85025

== ENCOUNTER → 2019-06-17 08:16 | Outpatient (CLI) | payer MEDICAID, SELFPAY ==
--- NOTE | 2019-06-17 08:17 | US_ITS ---
PROCEDURE: US GALLBLADDER CLINICAL INDICATION: right upper quadrant abdominal pain COMPARISON: No exams were available for comparison FINDINGS: Pancreas: Unremarkable/Not well seen Liver: There is fatty infiltration of the liver without a focal lesion.. There is appropriate direction of blood flow within a non dilated portal vein. Right kidney: Unremarkable appearing. No hydronephrosis. Gallbladder: No stones are evident. There is mild nonspecific gallbladder wall thickening. This could be due to nondistention, hypoalbuminemic/plasma volume overload states, or acalculous acute or chronic cholecystitis. A small amount of sludge is suggested in the gallbladder lumen versus reverberation artifact. Common duct is normal in diameter. IMPRESSION: Small amount of intraluminal sludge versus reverberation artifact with no gallstones with some wall thickening. Fatty infiltrated liver Dictated by: Korey Blackwell 06/17/2019 10:32 Electronically signed by Korey Blackwell in [place] 06/17/2019 10:32
== END ==
PROVIDERS: PCP Emergency Medicine; Visit Provider Emergency Medicine
DX: R10.11 Right upper quadrant pain (principal)
CPT/HCPCS: 76705

== ENCOUNTER → 2019-07-06 07:52 | Outpatient (CLI) | payer MEDICAID, SELFPAY ==
--- NOTE | 2019-07-06 07:53 | CA_ITS ---
APPROVED REPORT Lard Maker: CAROLYN Laterality: Bilateral Study Quality: Good Indications: angel Doppler Spectral Velocity Analysis dICA (R) 93.20/38.80 cm/s dICA (L) 88.10/29.40 cm/s Josue (R) 105.00/41.10 cm/s Josue (L) 84.90/30.00 cm/s pICA (R) 65.90/30.10 cm/s pICA (L) 88.90/26.00 cm/s dCCA (R) 98.50/30.80 cm/s dCCA (L) 96.30/38.50 cm/s pCCA (R) 98.10/25.80 cm/s pCCA (L) 88.50/22.70 cm/s Vert (R) 61.00/15.50 cm/s Vert (L) 62.70/19.40 cm/s ICA/CCA 1.10 ICA/CCA 0.90 Conclusion Duplex evaluation demonstrates stenosis of the right proximal internal carotid artery in the range of 20-49% with PSV <140 cm/sec, EDV <100 cm/sec, and IC/CC Ratio <4.0.Duplex evaluation demonstrates stenosis of the left proximal internal carotid artery in the range of 20-49% with PSV <140 cm/sec, EDV <100 cm/sec, and IC/CC Ratio <4.0.Antegrade flow seen bilateral vertebral arteries. Electronically signed by : Jesus Medellin MD 07/06/2019 17:19:21
== END ==
PROVIDERS: PCP Emergency Medicine; Visit Provider Urology
DX: I25.10 Atherosclerotic heart disease of native coronary artery without angina pectoris (principal); E78.5 Hyperlipidemia, unspecified; I10 Essential (primary) hypertension; I11.9 Hypertensive heart disease without heart failure; I77.9 Disorder of arteries and arterioles, unspecified
CPT/HCPCS: 93306; 93880

== ENCOUNTER → 2019-07-21 10:15 | Outpatient (CLI) | payer MEDICAID, SELFPAY ==
--- NOTE | 2019-07-21 10:15 | NM_ITS ---
PROCEDURE: NM HEPATOBILIARY W PHARM CLINICAL INDICATION: RUQ pain Nausea, bloating, right upper quadrant pain, gallbladder sludge COMPARISON: US GALLBLADDER from 06/17/2019 TECHNIQUE: DOSE: 8.34 mCi technetium Choletec and 1.6 mcg of CCK FINDINGS: Homogeneous activity is present within the hepatic parenchyma. Activity is present in the gallbladder by 30 minutes. Activity is present in the small bowel by 15 minutes. The gallbladder ejection fraction is calculated to be 92 percent. CCK-The patient did report pain during CCK infusion. IMPRESSION: No evidence of common or cystic duct obstruction with normal gallbladder ejection fraction. Pain was reported with CCK infusion Dictated by: Jesus Medellin MD 07/21/2019 12:51 Electronically signed by Jesus Medellin MD in [place] 07/21/2019 12:51
--- NOTE | 2019-07-21 10:29 | HMH.ITSHM ---
Current Home Medications as stated by this patient Fanny Vincent or disability representative. []ROSUVASTATIN NITRO METOPROLOL LISINOPRIL ALBUTEROL HYDROXYZINE HYDROCODONE GABAPENTIN FUROSEMIDE CLOPIDOGREL BUPROPION BUDESONIDE ASA AMLODIPINE
== END ==
PROVIDERS: PCP Emergency Medicine; Visit Provider Emergency Medicine
DX: R93.89 Abnormal findings on diagnostic imaging of other specified body structures (principal)
CPT/HCPCS: 78227; A9537; J2805

== ENCOUNTER → 2019-09-17 09:18 | Outpatient (CLI) | payer MEDICAID, SELFPAY ==
[2019-09-17 09:32] LABS: Basophils # 0.1 K/mm3 (0-0.2); Basophils % 1.4 % (0.1-2.0); Eosinophils # 0.3 K/mm3 (0.0-0.4); Eosinophils % 3.2 % (0.1-12.0); Hematocrit 36.8 % (37.0-47.0); Hemoglobin 11.9 g/dL (12.2-16.2); Lymphocytes # 3.1 K/mm3 (0.7-4.5); Lymphocytes % 35.8 % (10-50); Mean Corpuscular HGB Conc 32.3 g/dL (31.8-35.4); Mean Corpuscular Volume 89.7 fl (81-99); Mean Platelet Volume 7.6 fl (7.4-10.4); Monocytes # 0.5 K/mm3 (0.1-1.0); Monocytes % 6.1 % (1.7-9.3); Neutrophils # 4.7 K/mm3 (1.8-7.8); Neutrophils % 53.5 % (37.0-80.0); Platelet Count 275 K/mm3 (142-424); Red Cell Distribution Width 13.7 % (11.5-17.5); White Blood Count 8.7 K/mm3 (4.8-10.8)
[2019-09-17 09:58] LABS: Alanine Aminotransferase 14 U/L (12-78); Albumin Level 4.4 g/dl (3.5-5.0); Albumin/Globulin Ratio 1.3 (1.1-1.8); Alkaline Phosphatase 118 U/L (38-126); Anion Gap 7.6 mEq/L (5-15); Aspartate Amino Transferase 20 U/L (14-36); Bilirubin,Total 0.2 mg/dl (0.2-1.3); Blood Urea Nitrogen 7 mg/dl (7-17); Calcium 9.7 mg/dl (8.4-10.2); Carbon Dioxide 29 mmol/L (22.0-30.0); Chloride 104 mmol/L (98-107); Estimated Glomerular Filt Rate 75 ml/min (>60); GFR (African American) 90 ML/MIN (>60); Globulin 3.3 g/dL (1.3-3.2); Glucose 101 mg/dl (74-100); Potassium 3.6 mmoL/L (3.5-5.1); Sodium 137 mmol/L (136-145); Total Protein,Serum 7.7 g/dl (6.3-8.2)
[2019-09-17 10:24] LABS: Coronavirus 19 IgG Antibody Negative (Negative); Coronavirus 19 IgM Antibody Negative (Negative)
== END ==
PROVIDERS: Visit Provider Surgery
DX: Z01.818 Encounter for other preprocedural examination (principal); K82.9 Disease of gallbladder, unspecified
CPT/HCPCS: 36415; 80053; 85025; 86328

== ENCOUNTER 2019-09-18 06:01 | Day surgery (SDC) | payer MEDICAID, SELFPAY ==
--- NOTE | 2019-09-15 11:31 | SUR.PREOP ---
09/15/2019 @ 0860--PHONE CALL MADE TO PATIENT. PATIENT UNDERSTANDS THAT LAB WORK AND COVID TESTING NEEDS TO BE COMPLETED @ 0900 ON 09/17/2019. PATIENT UNDERSTANDS IF LAB WORK AND COVID-19 TESTS ARE NOT COMPLETED BY 12PM ON THAT DATE, THE SURGERY SCHEDULED WILL BE CANCELLED AND RESCHEDULED FOR ANOTHER TIME.
[2019-09-17 09:33] VITALS: BMI 28.9
[2019-09-18] VITALS (18 sets, daily range): BP systolic 89–128; BP diastolic 52–80; PULSE 78–99; RESP 14–19; TEMP 36.7–43; O2SAT 90–97
--- NOTE | 2019-09-18 07:02 | P.PN_ITS ---
[facility] Anesthesia Checklist - Patient Identification Patient Identification: Arm Band, Verbal (Name & ) - Structural Data Admitted From: Home Planned Operative Procedure/s: lap choly Verified Documents: Surgical Consent, History and Physical - NPO Status Verified Time NPO: 00:00 - Chart Verification Results Verified: CBC, BMP - Additional verifications Patient : No Anesthesia Reactions: No Hx Blood Transfusions: No Blood Transfusion Reaction: No Cephalosporin Allergy: No Previous Colonoscopy: No - Cardiovascular Assessment Heart Sounds: S1 & S2 Pulse Strength: Baseline Pulse Rhythm: Regular Peripheral Edema: No - Airway Assessment C-Spine Mobility Assessed: Yes TMJ Mobility Assessed: Yes Dentition: Poor Dentition - Neurological Assessment Level of Consciousness: Awake, Alert, Appropriate Hx Seizures: No Numbness or tingling in extremities: No - Anesthesia Plan Anesthesia Risk discussed: Yes Anesthesia Plan: Verified ASA Class: III Anesthesia Type: General [facility] History I have reviewed the patient's past medical history: Yes Medical History: Reports:: Anxiety, Chronic Obstructive Pulmonary Disease (COPD), Coronary Artery Disease, Depression, Gastroesophageal Reflux Disease(GERD), Gastrointestinal Bleed, Hyperlipidemia, Hypertension Denies:: Cancer, Diabetes Mellitus Type 1, Diabetes Mellitus Type 2, Internal Pacemaker, MRSA, Seizures *Have you ever received a pneumonia vaccine?: No *Have you received a flu vaccine this season?: No Other Medical History: Reports: Arthritis, Fibromyalgia. Denies: Blood Transfusion Reaction Anesthesia experience/problems:: none Laterality Cases: Left: Other, Bilateral: Carpal Tunnel Release, Tonsillectomy Other Surgeries: Yes: No Previous Surgery, Angiogram, Appendectomy, Cardiac Catheterization, Coronary Stent, Dilation and Curettage, Diagnostic Lap, Hysterectomy-Total, Tubal Ligation. No: Pacemaker Amputation: No Fractures: No - *Social History Educational Level: Completed College Smoking Status: Current every day smoker Tobacco Type: cigarettes # Packs/Day (cigarettes): 1 Alcohol Intake: never Alcohol Intake Frequency:: a few times a week Substance Use Type: denies use *Occupational Status:: unemployed Housing: house Household Members: spouse *Travel in the last 8 weeks: None - Psychiatric History Pschychiatric History:: Reports:: Anxiety, Depression Family Hx:: No significant family history
--- NOTE | 2019-09-18 08:21 | HMH.OPNOTE ---
Date of procedure: 09/18/19 Pre-op Diagnosis:: Biliary sludge Right upper quadrant pain Post-op Diagnosis:: Same as preoperative diagnoses with the addition of the following: Chronic cholecystitis Procedure performed:: Laparoscopic cholecystectomy Surgeon:: Danny Holloway MD NAILING MACHINE OPERATOR:: Duc Navarrete Anesthesia: GETA Estimated blood loss (mL): 15 Operative findings:: Multiple abdominal wall adhesions in the periumbilical region Severe thickening of infundibulum with fat stranding Endoloops utilized to control the infundibulum secondary to severe thickening within the entire region Operative note:: After informed consent was obtained, the patient was taken to the operating room and placed in the supine position. General anesthesia was induced and the abdomen was prepped and draped in a sterile fashion. After infiltration with local anesthetic an infraumbilical incision was made. A Veress needle was placed in position. The abdomen was insufflated. A 5 mm optical trocar was placed in position. Under direct visualization, a 12 mm trocar was placed in the subxiphoid position and 2 additional 5 mm trocars were placed in the right upper quadrant. The gallbladder was elevated up and over the liver margin. The tissue around the cystic duct/infundibulum was carefully dissected. Severe thickening within this region was noted. The decision was made to utilize a dome down approach and control the infundibulum with Endoloops. The gallbladder was dissected free from the liver margin utilizing harmonic cedric. The Endoloops (x2) were placed in position at the infundibulum. Transection of the gallbladder distal to this point was then completed. The gallbladder was placed in a retrieval bag and removed through the subxiphoid trocar site. The right upper quadrant was thoroughly irrigated. No active bleeding or bile leak was noted. Fascia at the subxiphoid trocar site was reapproximated utilizing the NeoClose device. The remaining trocars were removed. All wounds were irrigated and skin was closed with 4-0 Monocryl in a subcuticular fashion. Steri-Strips were applied. The patient's anesthetic agents were reversed and extubation was completed prior to transfer to recovery in stable condition. Condition: stable Disposition: PACU Specimens:: Gallbladder and contents Complications:: No immediate
--- NOTE | 2019-09-18 08:26 | HMH.ANESI ---
[facility] Anesthesia Record Part I Intake, IV Amount: 650 Estimated blood loss (mL): 10 Urine output (mL): 0 Blood Products used (#): none Blood Pressure: 121/74 SaO2: 94 Pulse Rate: 78 Respiratory Rate: 18 Temperature: 98.6 F Patient is:: Drowsy, Nasal O2, Stable Stable to PACU at:: 08:23
--- NOTE | 2019-09-18 10:02 | P.PN_ITS ---
[facility] Anesthesia Record Part II Discharge Time: 08:53 Destination: Surgical Day Care (OP Surgery) PACU nurse assessment reviewed?: Yes Patient Condition:: Good Anesthesia Complications:: None Swallowing reflex intact?: Yes Cyanosis?: No Blood Pressure: 98/59 Pulse Rate: 87 Temperature: 98.2 F Mental Status: Alert & Oriented Pain level:: 2 Nausea and/or vomitting:: None Intake, IV Amount: 20
== END 2019-09-18 10:32 | disposition home or self-care (01) ==
LOC: OR 06:02
PROVIDERS: PCP Emergency Medicine; Visit Provider Surgery
PROC: 0FT44ZZ Resection of Gallbladder, Percutaneous Endoscopic Approach (ICD-10-PCS; CPT 47562; principal; 2019-09-18 07:30)
DX: K81.2 Acute cholecystitis with chronic cholecystitis; K82.8 Other specified diseases of gallbladder; J44.9 Chronic obstructive pulmonary disease, unspecified; E78.5 Hyperlipidemia, unspecified; I10 Essential (primary) hypertension; Z87.891 Personal history of nicotine dependence; Z82.49 Family history of ischemic heart disease and other diseases of the circulatory system; Z83.438 Family history of other disorder of lipoprotein metabolism and other lipidemia; I25.118 Atherosclerotic heart disease of native coronary artery with other forms of angina pectoris; Z95.5 Presence of coronary angioplasty implant and graft; Z79.82 Long term (current) use of aspirin; Z79.899 Other long term (current) drug therapy; Z88.1 Allergy status to other antibiotic agents
CPT/HCPCS: 47562; 96374; J2405; J2710

== ENCOUNTER → 2020-06-30 08:15 | Outpatient (CLI) | payer MEDICAID, SELFPAY ==
--- NOTE | 2020-06-30 08:15 | MM_ITS ---
PROCEDURE: MM DIG SCREENING MAMM BI W/CAD Digital Breast Tomosynthesis Included CLINICAL INDICATION: screening History of breast cancer in the patient's maternal aunt and maternal grandmother. COMPARISON: MG DMSB DIG MAMM-SCREEN [place] from 03/09/2016 MG DMSB DIG MAMM-SCREEN [place] W/CAD from 03/11/2017 MG MM DIG SCREENING MAMM BI W/CAD from 02/24/2019 TECHNIQUE: Standard CC and MLO images and 3D Tomosynthesis was obtained. R2 CAD reviewed. FINDINGS: Scattered fibroglandular densities are seen throughout both breasts. There are couple of benign-appearing microcalcifications in each breast. There is no new or suspicious lesion in either breast and no suspicious microcalcifications. There is a stable small nodular density axillary tail right breast likely a small intramammary node. IMPRESSION: Fibrofatty parenchyma with no suspicious lesions seen BI-RAD Category: 2 Benign Finding(s) FOLLOW-UP: 1YR 1 Year Follow-up (A letter has been sent to the patient regarding results of the study.) Dictated by: Dr. Brian Carvalho MD 07/05/2020 09:12 Dr. Brian Carvalho MD in [place] 07/05/2020 09:12
== END ==
PROVIDERS: PCP Emergency Medicine; Visit Provider Emergency Medicine
DX: Z12.31 Encounter for screening mammogram for malignant neoplasm of breast (principal)
CPT/HCPCS: 77063; 77067

== ENCOUNTER → 2020-07-19 14:07 | Outpatient (CLI) | payer MEDICAID, SELFPAY ==
[2020-07-19 15:13] LABS: Coronavirus 19 IgG Antibody Negative (Negative); Coronavirus 19 IgM Antibody Negative (Negative)
== END ==
PROVIDERS: Visit Provider Surgery
DX: Z01.818 Encounter for other preprocedural examination (principal); Z20.822 Contact with and (suspected) exposure to COVID-19; Z12.11 Encounter for screening for malignant neoplasm of colon; Z86.010 Personal history of colon polyps
CPT/HCPCS: 36415; 86328

== ENCOUNTER 2020-07-21 11:44 | Day surgery (SDC) | payer MEDICAID, SELFPAY ==
[2020-07-20 15:14] VITALS: BMI 28.9
[2020-07-21 12:07] VITALS: BP 156/85; PULSE 79; TEMP 36.3; O2SAT 99
[2020-07-21 12:41] VITALS: O2SAT 97
--- NOTE | 2020-07-21 13:02 | P.PCN_ITS ---
- Procedure: Date: 07/21/20 Patient Date of :: 1965 Procedure Performed:: Colonoscopy (limited secondary to exceedingly poor bowel preparation) Indications:: History of colon polyps Performing Provider:: Danny Holloway MD Referring Provider:: . Sedation:: Monitored anesthesia care Procedure:: After informed consent was obtained the patient was taken to the endoscopy suite. Sedation ensued after the patient was transferred to the left lateral decubitus position. Pulse, blood pressure, and oxygen saturation were monitored throughout the procedure. Digital rectal exam revealed no significant abnormality. The colonoscope was placed in position. The entire colon was evaluated. The colonoscope was carefully removed and the patient was t ransferred to recovery in stable condition. Please see findings and specimens below for detail. Findings:: Bowel preparation exceedingly poor Tortuous sigmoid No obstructing lesion or obvious stricture Specimens:: None Recommendations:: Repeat colonoscopy in approximately 3 months with extended bowel preparation Complications:: Poor bowel preparation Estimated blood obtained (mL): 0
[2020-07-21 13:05] VITALS: BP 98/48; PULSE 83; RESP 18; TEMP 36.6; O2SAT 95
[2020-07-21 13:15] VITALS: BP 119/67; PULSE 84; RESP 18; TEMP 36.6; O2SAT 98
[2020-07-21 13:35] VITALS: BP 135/83; PULSE 83; RESP 18; TEMP 36.6; O2SAT 99
--- NOTE | 2020-07-21 15:20 | P.PN_ITS ---
[facility] Anesthesia Checklist - Patient Identification Patient Identification: Arm Band - Structural Data Admitted From: Home Planned Operative Procedure/s: Colonoscopy Consent for Planned Operative Procedure(s) Verified: Yes Verified Documents: Surgical Consent - NPO Status Verified Time NPO: 00:00 - Additional verifications Anesthesia Reactions: No Hx Blood Transfusions: No Blood Transfusion Reaction: No - Airway Assessment C-Spine Mobility Assessed: Yes TMJ Mobility Assessed: Yes Dentition: Poor Dentition - Neurological Assessment Level of Consciousness: Awake, Alert - Anesthesia Plan Anesthesia Risk discussed: Yes Anesthesia Plan: Verified ASA Class: III Anesthesia Type: MAC [facility] History Medical History: Reports:: Anxiety, Chronic Obstructive Pulmonary Disease (COPD), Coronary Artery Disease, Depression, Gastroesophageal Reflux Disease(GERD), Gastrointestinal Bleed, Hyperlipidemia, Hypertension Denies:: Cancer, Diabetes Mellitus Type 1, Diabetes Mellitus Type 2, Internal Pacemaker, MRSA, Seizures *Have you ever received a pneumonia vaccine?: Yes *Have you received a flu vaccine this season?: No Other Medical History: Reports: Arthritis, Fibromyalgia. Denies: Blood Transfusion Reaction Anesthesia experience/problems:: NAC Laterality Cases: Left: Other, Bilateral: Carpal Tunnel Release, Tonsillectomy Other Surgeries: Yes: No Previous Surgery, Angiogram, Appendectomy, Cardiac Catheterization, Cholecystectomy, Colonoscopy, Coronary Stent, Dilation and Curettage, Diagnostic Lap, Hysterectomy-Total, Tubal Ligation. No: Pacemaker Amputation: No Fractures: No - *Social History Last grade of school completed: Some college Smoking Status: Former smoker Tobacco Type: cigarettes # Packs/Day (cigarettes): 1 #Yrs smoked (if former smoker): 30 Smoking End Date: 04/27/20 Alcohol Intake: current Alcohol Intake Frequency:: holidays/special occasions only Substance Use Type: former substance user, opiates *Occupational Status:: unemployed Housing: house Household Members: spouse *Travel in the last 8 weeks: None - Psychiatric History Pschychiatric History:: Reports:: Anxiety, Depression Family Hx:: Cancer
--- NOTE | 2020-07-21 15:21 | HMH.ANESI ---
[facility] Anesthesia Record Part I Intake, IV Amount: 300 Estimated blood loss (mL): 0 Urine output (mL): 0 Blood Products used (#): none Blood Pressure: 151/84 SaO2: 95 Pulse Rate: 88 Respiratory Rate: 12 Temperature: 97.9 F Patient is:: Drowsy, Stable
[2020-07-21 15:23] VITALS: BP 151/84; PULSE 88; RESP 12; TEMP 36.6; O2SAT 95
== END 2020-07-21 13:35 | disposition home or self-care (01) ==
LOC: OUTP 11:45
PROVIDERS: PCP Emergency Medicine; Visit Provider Surgery
PROC: 0DJD8ZZ Inspection of Lower Intestinal Tract, Via Natural or Artificial Opening Endoscopic (ICD-10-PCS; CPT G0105; principal; 2020-07-21 11:30)
DX: Z12.11 Encounter for screening for malignant neoplasm of colon (principal); Z86.010 Personal history of colon polyps; K56.2 Volvulus; J44.9 Chronic obstructive pulmonary disease, unspecified; I25.10 Atherosclerotic heart disease of native coronary artery without angina pectoris; K21.9 Gastro-esophageal reflux disease without esophagitis; E78.5 Hyperlipidemia, unspecified; I10 Essential (primary) hypertension; F41.9 Anxiety disorder, unspecified; M19.90 Unspecified osteoarthritis, unspecified site; M79.7 Fibromyalgia; Z87.19 Personal history of other diseases of the digestive system
CPT/HCPCS: G0105

== ENCOUNTER → 2020-08-05 09:36 | Outpatient (CLI) | payer MEDICAID, SELFPAY ==
--- NOTE | 2020-08-05 11:06 | CT_ITS ---
PROCEDURE: CT CHEST WO CON CLINICAL INDICATION: Nodule followup Follow-up pulmonary nodule COMPARISON: CT CTAC CTA-CHEST from 08/20/[address] chest wo con from 12/20/2017 MG MM DIG SCREENING MAMM BI W/CAD from 06/30/2020 TECHNIQUE: Axial images obtained with sagittal and coronal reformats. All CT scans at the facility use one or more dose reduction, viz: automated exposure control, ma/kV adjustment per patient size (including targeted exams where dose is matched to indication, i.e. head), or iterative reconstruction technique. FINDINGS: There are scattered small axillary lymph nodes. No mediastinal or hilar adenopathy. There are few small mediastinal lymph nodes which are unchanged. Coronary artery calcifications and/or stents noted. Calcified nodes are present in the right hilum. COPD with centrilobular emphysematous changes There is a calcified granuloma in the right lower lobe. 4 mm noncalcified nodule right upper lobe image 19. 3 mm nodule right upper lobe image 17 both unchanged. 5 mm right upper lobe nodule centrally image 22 unchanged. 4 mm nodule right middle lobe image 51 unchanged. Stable 6 mm nodule left lower lobe image 37. No new nodules evident. Previously noted area of infiltrate in the longer apparent. Upper abdominal images demonstrates small epigastric lymph nodes. There has been a prior cholecystectomy. No acute bony anomalies. Asymmetric density once again noted involving the left breast. This may be slightly more prominent. Suggest left breast ultrasound and spot compression views of this area with mammogram. IMPRESSION: 1. No change small bilateral pulmonary nodules with centrilobular emphysema and COPD. 2. Asymmetric density in the left breast laterally. Suggest ultrasound and diagnostic mammogram Dictated by: Jesus Medellin MD 08/06/2020 11:00 Jesus Medellin MD in [place] 08/06/2020 11:00
== END ==
PROVIDERS: PCP Emergency Medicine; Visit Provider Internal Medicine Pulmonary Disease
DX: R91.8 Other nonspecific abnormal finding of lung field (principal); R06.00 Dyspnea, unspecified
CPT/HCPCS: 71250; 94060; 94618; 94726; 94729

== ENCOUNTER → 2020-08-12 09:12 | Outpatient (CLI) | payer MEDICAID, SELFPAY ==
--- NOTE | 2020-08-12 09:14 | CA_ITS ---
APPROVED REPORT Public Health Veterinarian: Beata Buenrostro RVT Laterality: Bilateral Study Quality: Good Indications: Carotid stenosis Risk Factors Smoking Doppler Spectral Velocity Analysis ECA (R) 143.30/27.80 cm/s ECA (L) 118.70/32.10 cm/s dICA (R) 119.80/40.60 cm/s dICA (L) 78.10/33.10 cm/s Josue (R) 141.10/48.10 cm/s Josue (L) 136.90/28.90 cm/s pICA (R) 98.40/39.60 cm/s pICA (L) 142.20/43.80 cm/s dCCA (R) 102.70/26.70 cm/s dCCA (L) 134.70/46.00 cm/s pCCA (R) 97.30/28.90 cm/s pCCA (L) 79.10/26.70 cm/s Vert (R) 34.80/12.80 cm/s Vert (L) 69.50/26.70 cm/s ICA/CCA 1.38 ICA/CCA 1.06 Findings Study suggests 20-49% stenosis of the right internal cartoid artery. Study suggests 20-49% stenosis of the left internal cartoid artery. Antegrade flow seen bilateral vertebral arteries. Conclusion Study suggests 20-49% stenosis of the right internal cartoid artery. Study suggests 20-49% stenosis of the left internal cartoid artery. Antegrade flow seen bilateral vertebral arteries. Electronically signed by : Jesus Medellin MD 08/12/2020 18:18:57
--- NOTE | 2020-08-12 09:14 | CA_ITS ---
APPROVED REPORT EXAM: Comprehensive 2D, Doppler, and color-flow Echocardiogram Instructor Trainer Canine Service: Beata Buenrostro RVT Ht: 5 ft 5 in Wt: 174lbs BSA: 1.86 BP: 145/69 mmHg Indications: CP,CAD,EX SMOKER,TEIXEIRA 2D Dimensions LVOT 1.63 cm (M/F) 1.5-2.5 LA Volume 14.30 mL LA Volume Index 7.68 mL/m2 (M/F) 16-34 M-Mode Dimensions RVDd 2.25 cm (0.9-2.6) LA Diam 3.36 cm (1.9-4.0) LVDd 4.23 cm (3.5-5.7) Ao Diam 2.77 cm (2.0-3.7) LVDs 2.75 cm (3.5-5.7) IVSd 0.70 cm (0.6-1.1) PWd 0.97 cm (0.6-1.1) EF (Teich) 64.60% FS 35.00% EDV (Teich) 79.90 mL TAPSE 1.86 (<1.7) ESV (Teich) 28.30 mL LV Diastology E Decel Time 247.00 (160-240 msec) E/A Ratio 0.9 MED E' 7.00 (< 7 cm/sec) E'/MED E' Ratio 10.41 (>14) LAT E' 7.90 (<10 cm/sec) E/LAT E' Ratio 9.23 (>14) Mitral Valve MV E Max Chia. 73.00 (40-130 cm/s) MV A Velocity 83.00 (40-130 cm/s) E/A Ratio 0.88 MV Decel. Time 247.00 (160-240 ms) MV PHT 72.00 ms Pulmonary Valve PV Peak Velocity 67.00 (50-150 cm/s) Left Ventricle Left atrium is mildly enlarged, left ventricle is normal size, left ventricle wall thickness is upper limit of the normal, there is preserved left ventricular systolic function, visually estimated ejection fraction 55% with no regional wall motion abnormality, grade 1 diastolic dysfunction seen without tissue Doppler evidence of raise left atrial pressure. Right Ventricle Right atrium and right ventricle are normal size and contractility. Aortic Valve Aortic valve is minimally thickened and fibrosed, there is no aortic stenosis or aortic insufficiency. Mitral Valve Mitral valve grossly normal, there is trace mitral regurgitation. Tricuspid Valve Tricuspid grossly normal, there is trace tricuspid regurgitation, tricuspid regurgitation jet velocity is inadequate for calculation of the right ventricular systolic pressure. Pulmonic Valve Pulmonic valve is poorly visualized. Great Vessels Aortic root is normal size. Pericardium No significant pericardial effusion noted. Conclusion 1. Mildly enlarged left atrium, normal left ventricular size, visually estimated ejection fraction 55% with no regional wall motion abnormality, grade 1 diastolic dysfunction seen without tissue Doppler evidence of raise left atrial pressure. 2. Trace mitral and tricuspid regurgitation. 3. No significant pericardial effusion noted. Electronically signed by : Guero Peralta, 08/12/2020 14:44:59
== END ==
PROVIDERS: PCP Emergency Medicine; Visit Provider Internal Medicine
DX: R06.09 Other forms of dyspnea (principal); I65.23 Occlusion and stenosis of bilateral carotid arteries; I20.9 Angina pectoris, unspecified; I11.9 Hypertensive heart disease without heart failure; I77.9 Disorder of arteries and arterioles, unspecified; E78.5 Hyperlipidemia, unspecified; E78.2 Mixed hyperlipidemia
CPT/HCPCS: 93306; 93880

== ENCOUNTER → 2020-12-16 17:36 | Outpatient (CLI) | payer MEDICAID, SELFPAY ==
[2020-12-16 18:29] LABS: Basophils # 0.1 K/mm3 (0-0.2); Basophils % 1.6 % (0.1-2.0); Eosinophils # 0.3 K/mm3 (0.0-0.4); Hemoglobin 12.8 g/dL (12.2-16.2); Lymphocytes # 3.2 K/mm3 (0.7-4.5); Lymphocytes % 40.4 % (10-50); Mean Corpuscular HGB Conc 32.7 g/dL (31.8-35.4); Mean Corpuscular Hemoglobin 27.6 pg (27.0-31.2); Mean Corpuscular Volume 84.2 fl (81-99); Mean Platelet Volume 8.7 fl (7.4-10.4); Monocytes # 0.6 K/mm3 (0.1-1.0); Monocytes % 6.9 % (1.7-9.3); Neutrophils # 3.8 K/mm3 (1.8-7.8); Neutrophils % 47.1 % (37.0-80.0); Platelet Count 322 K/mm3 (142-424); Red Blood Count 4.63 M/mm3 (4.20-5.40); Red Cell Distribution Width 14.3 % (11.5-17.5)
[2020-12-16 18:37] LABS: Chloride 105 mmol/L (98-107); Potassium 3.9 mmoL/L (3.5-5.1); Sodium 142 mmol/L (136-145)
[2020-12-16 18:39] LABS: Blood Urea Nitrogen 14 mg/dl (7-17); Estimated Glomerular Filt Rate 87 ml/min (>60); GFR (African American) 105 ML/MIN (>60)
[2020-12-16 18:40] LABS: Alanine Aminotransferase 17 U/L (12-78); Albumin Level 4.5 g/dl (3.5-5.0); Albumin/Globulin Ratio 1.2 (1.1-1.8); Alkaline Phosphatase 119 U/L (38-126); Anion Gap 14.9 mEq/L (5-15); Aspartate Amino Transferase 27 U/L (14-36); Bilirubin,Total 0.4 mg/dl (0.2-1.3); Calcium 9.4 mg/dl (8.4-10.2); Carbon Dioxide 26 mmol/L (22.0-30.0); Chol/HDL Ratio 6.5 (1-3.5); Cholesterol 284 mg/dl (140-200); Globulin 3.7 g/dL (1.3-3.2); Glucose 108 mg/dl (74-100); HDL Cholesterol 44 mg/dl (40-60); Total Protein,Serum 8.2 g/dl (6.3-8.2); Triglycerides 207 mg/dl (30-150); VLDL Cholesterol 41 mg/dL (0-40)
[2020-12-16 18:53] LABS: Direct LDL Cholesterol 180.48 mg/dL (100-129)
[2020-12-16 18:57] LABS: Free T4 (Free Thyroxine) 1.06 ng/dl (0.78-2.19)
[2020-12-16 19:11] LABS: Thyroid Stimulating Hormone 1.23 uIU/mL (0.465-4.68)
== END ==
PROVIDERS: Visit Provider Emergency Medicine
DX: E66.3 Overweight (principal); E55.9 Vitamin D deficiency, unspecified; E66.8 Other obesity; Z68.28 Body mass index [BMI] 28.0-28.9, adult
CPT/HCPCS: 80053; 80061; 82306; 84439; 84443; 85025

== ENCOUNTER → 2020-12-21 09:55 | Outpatient (CLI) | payer MEDICAID, SELFPAY | PROVIDERS: PCP Emergency Medicine; Visit Provider Nurse Practitioner Psychiatric/Mental Health | DX: Z20.822 Contact with and (suspected) exposure to COVID-19 (principal) | CPT/HCPCS: U0003 ==

== ENCOUNTER → 2021-01-10 12:59 | Outpatient (CLI) | payer MEDICAID, SELFPAY ==
[2021-01-10 13:30] LABS: Basophils # 0.1 K/mm3 (0-0.2); Basophils % 1.4 % (0.1-2.0); Eosinophils # 0.3 K/mm3 (0.0-0.4); Eosinophils % 3.2 % (0.1-12.0); Hematocrit 41.2 % (37.0-47.0); Hemoglobin 13.3 g/dL (12.2-16.2); Lymphocytes # 2.7 K/mm3 (0.7-4.5); Lymphocytes % 33.8 % (10-50); Mean Corpuscular HGB Conc 32.3 g/dL (31.8-35.4); Mean Corpuscular Hemoglobin 28.1 pg (27.0-31.2); Mean Corpuscular Volume 87.2 fl (81-99); Mean Platelet Volume 6.8 fl (7.4-10.4); Monocytes # 0.3 K/mm3 (0.1-1.0); Monocytes % 4.4 % (1.7-9.3); Neutrophils # 4.5 K/mm3 (1.8-7.8); Neutrophils % 57.3 % (37.0-80.0); Platelet Count 301 K/mm3 (142-424); Red Blood Count 4.72 M/mm3 (4.20-5.40); Red Cell Distribution Width 13.6 % (11.5-17.5); White Blood Count 7.8 K/mm3 (4.8-10.8)
[2021-01-10 14:40] LABS: Alanine Aminotransferase 44 U/L (12-78); Albumin Level 4.2 g/dl (3.5-5.0); Albumin/Globulin Ratio 1.2 (1.1-1.8); Alkaline Phosphatase 136 U/L (38-126); Aspartate Amino Transferase 23 U/L (14-36); Bilirubin,Total 0.4 mg/dl (0.2-1.3); Blood Urea Nitrogen 6 mg/dl (7-17); Calcium 9.2 mg/dl (8.4-10.2); Carbon Dioxide 26 mmol/L (22.0-30.0); Chloride 103 mmol/L (98-107); Estimated Glomerular Filt Rate 103 ml/min (>60); GFR (African American) 125 ML/MIN (>60); Globulin 3.4 g/dL (1.3-3.2); Glucose 156 mg/dl (74-100); Sodium 138 mmol/L (136-145); Total Protein,Serum 7.6 g/dl (6.3-8.2)
== END ==
PROVIDERS: Visit Provider Urology
DX: Z01.812 Encounter for preprocedural laboratory examination (principal); Z20.822 Contact with and (suspected) exposure to COVID-19; R06.00 Dyspnea, unspecified; I20.9 Angina pectoris, unspecified; I11.9 Hypertensive heart disease without heart failure; I77.9 Disorder of arteries and arterioles, unspecified; E78.5 Hyperlipidemia, unspecified
CPT/HCPCS: 36415; 80053; 85025; C9803; U0003; U0005

== ENCOUNTER 2021-01-11 08:22 | Day surgery (SDC) | payer MEDICAID, SELFPAY ==
[2021-01-11] VITALS (11 sets, daily range): BP systolic 99–180; BP diastolic 59–93; PULSE 69–109; RESP 18; TEMP 36.6; O2SAT 95–100; BMI 27.9
--- NOTE | 2021-01-11 | IR_ITS ---
APPROVED REPORT Patient Location: Outpatient Plate Corrector: LEONARDO Mendez RT (R) PROCEDURES Left heart catheterization Left ventriculogram Selective coronary angiogram INDICATION Known coronary disease, Typical angina pectoris, Informed consent was obtained prior to the procedure. COMPLICATIONS None Estimated Blood Loss: Less than 10 mls TECHNIQUE One percent lidocaine used to anesthetize the right anterior aspect of the wrist. The right radial artery was accessed via the Seldinger technique. A 6 Swedish sheath was placed in the right radial artery. 2.5 mg of verapamil, 800 mcg of nitroglycerin, 1mg Lidocaine and 5000 U Heparin were given through the arterial sheath. The trap catheter was also used to perform left heart catheterization, left ventriculogram and selective coronary angiogram. At the end of the procedure the sheath was removed good hemostasis was achieved using Traclet band, patient was transferred to the postop holding area in stable condition. ANGIOGRAPHIC RESULTS The left main artery Normal The left anterior descending artery Is proximally normal then has a stent in the mid segment which has 40 to 50% concentric in-stent restenosis. The LAD itself is small and does not reach the apex The circumflex artery Is a nondominant vessel and has a 60% stenosis immediately distal to the first obtuse marginal artery. The vessel was 2 mm or less in diameter and this stenotic area. The first obtuse marginal artery itself is approximately 2 mm in diameter and has mild 10 to 20% stenoses The right coronary artery Is a large dominant vessel has a stent in the ostial proximal and mid segment which is widely patent with minimal in-stent restenosis. Distally there are 20 and 30% stenoses. The posterior descending artery is a large-caliber vessel and has a mid vessel 50% stenosis at a 2.5 mm segment. The posterior lateral branch is tortuous and has a 70% stenosis along a tortuous bend at an area that is 2 mm in diameter. The posterior lateral branch is a large and long vessel The AREVALO ventriculogram reveals Slightly hyperdynamic at 70% The left ventricular end-diastolic pressure 25 mmHg IMPRESSION Coronary disease as described above Hyperdynamic ventricle with elevated LVEDP consistent with diastolic dysfunction PLAN 1. At this point I favor medical management. Patient has significant room to increase antianginal medications. There is also underlying diastolic dysfunction which is almost certainly contributing to patient's angina pectoris. When combining this with ongoing tobacco abuse patient's angina most likely comes from combination above macro and microvascular ischemia. 2. Increase beta-blockers to a target heart rate in the 60s 3. Treat diastolic dysfunction 4. Immediate cessation of tobacco products 5. At this time patient's coronary artery disease is best managed medically. Should recalcitrant angina continue despite the above therapies only then should we consider revascularizing or possibly performing FFR on the PDA and LAD system as described above Electronically signed by : José Miguel Hoover MD 01/11/2021 10:33:12
== END 2021-01-11 13:25 | disposition home or self-care (01) ==
LOC: CATHLAB 08:23
PROVIDERS: PCP Emergency Medicine; Visit Provider Internal Medicine
DX: R07.9 Chest pain, unspecified (principal); Z79.01 Long term (current) use of anticoagulants; Z79.899 Other long term (current) drug therapy; I25.118 Atherosclerotic heart disease of native coronary artery with other forms of angina pectoris; Z95.5 Presence of coronary angioplasty implant and graft; F17.210 Nicotine dependence, cigarettes, uncomplicated; I11.9 Hypertensive heart disease without heart failure; I65.23 Occlusion and stenosis of bilateral carotid arteries; J44.9 Chronic obstructive pulmonary disease, unspecified; T82.855A Stenosis of coronary artery stent, initial encounter; Z88.8 Allergy status to other drugs, medicaments and biological substances
CPT/HCPCS: 93458; 99152; C1725; C1769; J1644; Q9967

== ENCOUNTER → 2021-02-01 12:50 | Outpatient (CLI) | payer MEDICAID, SELFPAY ==
[2021-02-01 13:50] LABS: Anion Gap 13.9 mEq/L (5-15); Blood Urea Nitrogen 8 mg/dl (7-17); Calcium 9.6 mg/dl (8.4-10.2); Carbon Dioxide 26 mmol/L (22.0-30.0); Chloride 103 mmol/L (98-107); Estimated Glomerular Filt Rate 87 ml/min (>60); GFR (African American) 105 ML/MIN (>60); Glucose 141 mg/dl (74-100); Potassium 3.9 mmoL/L (3.5-5.1); Sodium 139 mmol/L (136-145)
== END ==
PROVIDERS: Visit Provider Urology
DX: R06.00 Dyspnea, unspecified (principal); I11.9 Hypertensive heart disease without heart failure; I20.9 Angina pectoris, unspecified; I77.9 Disorder of arteries and arterioles, unspecified; E78.5 Hyperlipidemia, unspecified
CPT/HCPCS: 36415; 80048

== ENCOUNTER → 2021-03-17 18:34 | Outpatient (CLI) | payer MEDICAID, SELFPAY ==
[2021-03-17 23:54] LABS: Amphetamine/Metha Screen,Urine Negative ng/ml (<1000)
[2021-03-17 23:55] LABS: Barbiturates Screen,Urine Negative ng/ml (<200); Benzodiazepines Screen,Urine Negative ng/ml (<200)
[2021-03-17 23:56] LABS: Cannabinoid Screen,Urine Negative ng/ml (<50)
[2021-03-17 23:57] LABS: Cocaine Screen,Urine Negative ng/ml (<300); Methadone Screen,Urine Negative ng/ml (<300)
[2021-03-17 23:58] LABS: Opiate Screen,Urine Negative ng/ml (<300)
[2021-03-17 23:59] LABS: Phencyclidine Screen,Urine Negative ng/ml (<25)
== END ==
PROVIDERS: Visit Provider Emergency Medicine
DX: R06.00 Dyspnea, unspecified (principal); I10 Essential (primary) hypertension; I77.9 Disorder of arteries and arterioles, unspecified
CPT/HCPCS: 80305

== ENCOUNTER → 2021-08-07 12:50 | Outpatient (CLI) | payer MEDICAID, SELFPAY ==
--- NOTE | 2021-08-07 12:50 | MM_ITS ---
PROCEDURE INFORMATION: Exam: MG Bilateral Screening 3D Mammography Exam date and time: 08/07/2021 12:55 PM Age: 55 years old Clinical indication: Screening. Her maternal aunt and maternal grandmother had breast cancer. TECHNIQUE: Imaging protocol: Bilateral Screening tomosynthesis and 2D mammography including computer-aided detection (CAD) when performed. COMPARISON: 1. MG MM DIG SCREENING MAMM BI W/CAD 06/30/2020 8:24 AM 2. MG MM DIG SCREENING MAMM BI W/CAD 02/24/2019 1:10 PM 3. MG DMSB DIG MAMM-SCREEN [place] W/CAD 03/11/2017 8:33 AM 4. MG DMSB DIG MAMM-SCREEN [place] 03/09/2016 4:26 PM FINDINGS: MAMMOGRAPHY: Breast composition: The breast tissue is composed of scattered areas of fibroglandular density. Mass: No suspicious mass. Architectural distortion: None. Calcifications: No suspicious calcifications. Asymmetric density: Stable focal asymmetrically denser tissue in the left upper outer quadrant, middle 3rd, since 03/14/2016. No developing asymmetry. Skin thickening: None. Axillary adenopathy: None. IMPRESSION: No mammographic evidence of malignancy. Annual screening is recommended unless otherwise clinically indicated. ASSESSMENT: BI-RADS Category 2: Benign
== END ==
PROVIDERS: PCP Emergency Medicine; Visit Provider Emergency Medicine
DX: Z12.31 Encounter for screening mammogram for malignant neoplasm of breast (principal)
CPT/HCPCS: 77063; 77067

== ENCOUNTER → 2021-09-04 13:52 | Outpatient (CLI) | payer MEDICAID, SELFPAY ==
--- NOTE | 2021-09-04 13:52 | CT_ITS ---
FINAL REPORT CLINICAL HISTORY: smoker, 1ppd x 35 years. copd, emphysema, cad. COMPARISON: August 05, 2020 FINDINGS: Low-Dose Chest CT CTDI vol (mGy): 2.9 DLP (mGy-cm): 100.29 Axial images were obtained from the lung apex to the mid abdomen by computed tomography. Low-dose protocol was utilized. FINDINGS: CHEST: There are stable small axillary nodes. There is no hilar or mediastinal adenopathy. The central left breast nodularity is stable from the previous exam. The heart is proper size. There is no pericardial or pleural effusion. Limited images of the upper abdomen are unremarkable. Lung window images demonstrate a stable 4 mm medial right upper lobe nodule on image 18. A stable 3 mm right upper lobe nodule is seen on image 16. There is a stable 5 mm right upper lobe nodule on image 21. There is a stable right upper lobe on image 26. A stable 3 mm right middle lobe nodule is seen on image 51. There is a calcified granuloma in the right lower lobe. No new mass or nodule is seen. IMPRESSION: Lung RADS category 1. Recommend 12 month follow-up low-dose chest CT. Reviewed, Interpreted and Dictated by Viet Domingo III, MD Transcribed by Nito Almaraz Authenticated by Viet Domingo III, MD on 09/04/2021 03:12:08 PM [facility]
== END ==
PROVIDERS: PCP Emergency Medicine; Visit Provider Internal Medicine Pulmonary Disease
DX: Z87.891 Personal history of nicotine dependence (principal); Z12.2 Encounter for screening for malignant neoplasm of respiratory organs
CPT/HCPCS: 71271

== ENCOUNTER → 2021-09-18 14:46 | Outpatient (CLI) | payer MEDICAID, SELFPAY ==
[2021-09-18 16:26] LABS: Basophils # 0.3 K/mm3 (0-0.2); Basophils % 2.9 % (0.1-2.0); Eosinophils # 0.3 K/mm3 (0.0-0.4); Eosinophils % 2.7 % (0.1-12.0); Hematocrit 39.7 % (37.0-47.0); Hemoglobin 13.7 g/dL (12.2-16.2); Lymphocytes # 3.3 K/mm3 (0.7-4.5); Lymphocytes % 36.2 % (10-50); Mean Corpuscular HGB Conc 34.5 g/dL (31.8-35.4); Mean Corpuscular Hemoglobin 28.9 pg (27.0-31.2); Mean Corpuscular Volume 83.7 fl (81-99); Mean Platelet Volume 7.9 fl (7.4-10.4); Monocytes # 0.4 K/mm3 (0.1-1.0); Monocytes % 4.8 % (1.7-9.3); Neutrophils # 4.9 K/mm3 (1.8-7.8); Neutrophils % 53.4 % (37.0-80.0); Platelet Count 357 K/mm3 (142-424); Red Blood Count 4.74 M/mm3 (4.20-5.40); Red Cell Distribution Width 14.3 % (11.5-17.5); White Blood Count 9.2 K/mm3 (4.8-10.8)
[2021-09-18 17:01] LABS: Alanine Aminotransferase 13 U/L (12-78); Albumin Level 4.3 g/dl (3.5-5.0); Alkaline Phosphatase 126 U/L (38-126); Aspartate Amino Transferase 21 U/L (14-36); Bilirubin,Indirect 0.3 mg/dL (0.0-0.9); Bilirubin,Total 0.3 mg/dl (0.2-1.3); Bilirubin,Unconjugated 0.3 mg/dL (0.0-1.1); Blood Urea Nitrogen 6 mg/dl (7-17); Calcium 9.4 mg/dl (8.4-10.2); Carbon Dioxide 31 mmol/L (22.0-30.0); Chloride 104 mmol/L (98-107); Cholesterol 270 mg/dl (140-200); Estimated Glomerular Filt Rate 87 ml/min (>60); GFR (African American) 105 ML/MIN (>60); Glucose 104 mg/dl (74-100); HDL Cholesterol 30 mg/dl (40-60); Magnesium 1.8 mg/dl (1.6-2.3); Sodium 139 mmol/L (136-145); Total Protein,Serum 7.5 g/dl (6.3-8.2); Triglycerides 257 mg/dl (30-150); VLDL Cholesterol 51 mg/dL (0-40)
[2021-09-18 17:13] LABS: Direct LDL Cholesterol 174.99 mg/dL (100-129)
[2021-09-18 17:18] LABS: Free T4 (Free Thyroxine) 1.09 ng/dl (0.78-2.19)
[2021-09-18 17:33] LABS: Thyroid Stimulating Hormone 2.37 uIU/mL (0.465-4.68)
== END ==
PROVIDERS: Visit Provider Nurse Practitioner
DX: I25.10 Atherosclerotic heart disease of native coronary artery without angina pectoris (principal); F41.9 Anxiety disorder, unspecified; E78.5 Hyperlipidemia, unspecified; I10 Essential (primary) hypertension; E66.3 Overweight; G62.9 Polyneuropathy, unspecified; F17.200 Nicotine dependence, unspecified, uncomplicated
CPT/HCPCS: 36415; 80048; 80061; 80076; 83735; 84439; 84443; 85025

== ENCOUNTER → 2022-04-09 14:21 | Outpatient (CLI) | payer MEDICAID, SELFPAY ==
--- NOTE | 2022-04-09 14:22 | US_ITS ---
FINAL REPORT CLINICAL HISTORY: decreased sensation, current smoker, HTN, DM, hyperlipidemia, hx SC, bilateral rest pain, bilateral claudication. FINDINGS: ANKLE-BRACHIAL PRESSURE INDICES Pressure indices are as follows: RIGHT LOWER EXTREMITY: Ankle-brachial pressure index: 1.0 Comments: Normal LEFT LOWER EXTREMITY: Ankle-brachial pressure index: 1.0 Comments: Normal CONCLUSION: No evidence of significant obstructive peripheral vascular disease of the lower extremities Reviewed, Interpreted and Dictated by Viet Domingo III, MD Transcribed by Angélica Saavedra Authenticated and [facility]
== END ==
PROVIDERS: PCP Emergency Medicine; Visit Provider Podiatrist
DX: I70.213 Atherosclerosis of native arteries of extremities with intermittent claudication, bilateral legs (principal)
CPT/HCPCS: 93923

== ENCOUNTER → 2022-04-17 07:25 | Outpatient (CLI) | payer MEDICAID, SELFPAY ==
--- NOTE | 2022-04-17 07:27 | NM_ITS ---
APPROVED REPORT Exam: Nuclear Stress Test Indication: Chest pain, CAD, Hx of [place], HTN, High cholesterol, Tobacco use Patient Location: Outpatient Stress Tech: Luz Stoll [place] Tech:Kimberley Arthur, ARRT, RT (R)(N) Ht: 5 ft 5 in Wt: 164 lbs Bra Size: 38C HR: 85 bpm BP: 175/88 mmHg BSA: 1.82 m2 TID: 0.98 BMI: 27.2 History: Chest pain, CAD, Hx of [place], HTN, High cholesterol, Tobacco use Procedure: Patient exercised on Waqas protocol 5:59 minutes and sec, resting heart rate 85 bpm, resting blood pressure 175/88 mmHg, with exercise maximum heart rate achived was 146 bpm which is 90 % of the maximum predicted heart rate and blood pressure was 234/90 mmHg. Test was stopped due to SOB. Patient denied any complaint of chest pain. Patient has Adequate exercise capacity, achieved 7.0 METs of workload on treadmill, the blood pressure response to exercise was Hypertensive. Electrocardiogram Resting electrocardiogram showed sinus rhythm, with exercise there is less than 1.[address] segment depression noted from the baseline EKG. The EKG portion of the exercise Myoview is negative for ischemia. Cardiac Stress and Resting SPECT Images: Cardiac Stress and Resting SPECT images were obtained using technetium 99m Myoview 31.2 mCi stress and 10.36 mCi at rest. Gated SPECT for analysis of segmental wall motion and calculation of the ejection fraction was present. Prone images were also obtained. Cardiac stress and resting SPECT images uniform myocardial activity without segmental perfusion abnormality, computer derived ejection fraction is 60% with no regional wall motion abnormality, right ventricle is normal size and contractility. Conclusion: 1. The EKG portion of the exercise Myoview is negative for ischemia, patient has adequate exercise capacity achieved 7 METS of workload on treadmill, the blood pressure response to exercise was hypertensive, there was no exercise-induced chest discomfort. 2. No scintigraphic evidence of reversible ischemia seen at this level of exercise, computer derived ejection fraction is 60% with no regional wall motion abnormality, right ventricle is normal size and contractility. 3. Normal exercise Myoview study except for hypertensive blood pressure response. Electronically signed by : Guero Peralta MD 04/17/2022 19:56:16
--- NOTE | 2022-04-17 08:55 | CA_ITS ---
APPROVED REPORT EXAM: Comprehensive 2D, Doppler, and color-flow Echocardiogram Turntable Engineer: Beata Buenrostro RVT Ht: 5 ft 5 in Wt: 159lbs BSA: 1.79 BP: 156/79 mmHg Indications: CP,CAD,HLD,SMOKER 2D Dimensions LVOT 2.05 cm (M/F) 1.5-2.5 LA Volume 22.40 mL LA Volume Index 12.44 mL/m2 (M/F) 16-34 M-Mode Dimensions RVDd 2.35 cm (0.9-2.6) LA Diam 3.11 cm (1.9-4.0) LVDd 4.40 cm (3.5-5.7) Ao Diam 2.77 cm (2.0-3.7) LVDs 3.11 cm (3.5-5.7) IVSd 0.91 cm (0.6-1.1) PWd 0.61 cm (0.6-1.1) EF (Teich) 56.40% FS 29.30% EDV (Teich) 87.70 mL TAPSE 1.82 (<1.7) ESV (Teich) 38.20 mL LV Diastology E Decel Time 250.00 (160-240 msec) E/A Ratio 0.8 MED E' 5.90 (< 7 cm/sec) E'/MED E' Ratio 10.39 (>14) LAT E' 8.60 (<10 cm/sec) E/LAT E' Ratio 7.13 (>14) Aortic Valve AO Peak GR. 5.10 mmHg Mitral Valve MV E Max Chai. 61.00 (40-130 cm/s) MV A Velocity 81.00 (40-130 cm/s) E/A Ratio 0.76 MV Decel. Time 250.00 (160-240 ms) MV PHT 73.00 ms Pulmonary Valve PV Peak Velocity 69.00 (50-150 cm/s) Tricuspid Valve TR P. Velocity 207.00 cm/s RAP Estimate 10.00 mmHg RVSP 27.10 mmHg Left Ventricle Left atrium is mildly enlarged, left ventricle is normal size mild concentric left ventricular hypertrophy, estimated ejection fraction 55% with no regional wall motion abnormality, grade 1 diastolic dysfunction seen without tissue Doppler evidence of raise left atrial pressure. Right Ventricle Right atrium and right ventricle are normal size and contractility. Aortic Valve Aortic valve is minimally thickened and fibrosed there is no aortic stenosis or aortic insufficiency. Mitral Valve Mitral valve grossly normal, there is trace mitral regurgitation. Tricuspid Valve Tricuspid valve grossly normal, there is trace tricuspid regurgitation, tricuspid regurgitation jet velocity is inadequate for calculation of the right ventricular systolic pressure. Pulmonic Valve Pulmonic valve is poorly visualized. Great Vessels Aortic root is normal size. Inferior vena cava is normal size with normal inspiratory collapse. Pericardium No significant pericardial effusion. Conclusion 1. Mildly enlarged atrium, normal left ventricular size, mild concentric left ventricular hypertrophy, estimated ejection fraction 55% with no regional wall motion abnormality, grade 1 diastolic dysfunction seen without tissue Doppler evidence of raise left atrial pressure. 2. Trace mitral and tricuspid regurgitation. 3. No significant pericardial effusion. 4. Inferior vena cava is normal size with normal inspiratory collapse. Electronically signed by : Guero Peralta MD 04/17/2022 18:26:21
--- NOTE | 2022-04-17 08:57 | HMH.ITSHM ---
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 []TIZANIDINE SPIRONOLACTONE ROSUVASTATIN PANTOPRAZOLE NITRO LISINOPRIL ISOSORBIDE IPRATROPIUM HYDORXYZINE GABAPENTIN FUROSEMIDE CLOPIDOGREL CARIPRAZINE BUPROPION BUDESONIDE BISOPROLOL ASA AMLODIPINE ALBUTEROL
--- NOTE | 2022-04-17 09:29 | CA_ITS ---
APPROVED REPORT Exam: Exercise Treadmill Technologist: Luz Szymanski, Ht: 5 ft 5 in Wt: 159 lbs BSA: 1.79 m2 HR: 84 bpm BP: 196/93 mmHg Medical History Medications: Amlodipine,,,,, Lisinopril,,,,, Aspirin,,,,, Gabapentin,,,,, Pantoprazole,,,,, Lasix,,,,, Albuterol,,,,, CloPIdogrel,,,,, BisOPROLOL,,,,, Tizanidine,,,,, BuPROPION,,,,, Nitroglycerin,,,,, Stress Test Details Test: Waqas HR Resting HR: 85 bpm Max Heart Rate (APMHR): 163.167778 bpm Max HR Achieved: 146 bpm Target HR (85% APMHR): 138.866316 bpm % of APMHR: 89.57 Recovery HR: 98 bpm BP Resting BP: 175/88 mmHg Max BP: 234/90 mmHg Recovery BP: 185.0/84.0 mmHg ECG Resting ECG: NSR, rightward axis, NS ST-T abn in lead III Clinical Exercise duration: 05:59 min Highest Stage Achieved: II Exercise capacity: 7.0 METs Stress ECG Conclusion Exercised 6:00 o Waqas Protocol, completing stage II. Max HR: 146 % of PM: 90% Max BP: 234/90 METs: 7.0 Test stopped due to: SOA, hypertension Symptoms: No CP. Arrhythmias/Ectopy: None. ST-T Changes: -0.5mm horizontal ST depression inferiorly & laterally. Conclusion: within normal GXT. Hypertension. Myoview images reported separately. Test Summary REST . . . . . . . Standing REST 08:46 0.0 0.0 85 . 175/ 88 . . Stage 1 01:00 10.0 1.7 104 . . . . Stage 1 02:00 10.0 1.7 119 . . . . Stage 1 03:00 10.0 1.7 123 . 212/ 86 . . Stage 2 01:00 12.0 2.5 132 . . . . Stage 2 02:00 12.0 2.5 141 . . . . Stage 2 02:59 12.0 2.5 145 . 234/ 90 . Stop exercise at 05:59 RECOVERY 01:00 0.0 0.0 127 . . . . RECOVERY 02:00 0.0 0.0 109 . 221/ 93 . . RECOVERY 03:00 0.0 0.0 98 . 195/ 81 . . RECOVERY 04:00 0.0 0.0 98 . 195/ 81 . . RECOVERY 05:00 0.0 0.0 88 . 195/ 81 . . RECOVERY 06:00 0.0 0.0 99 . 201/ 85 . . RECOVERY 07:00 0.0 0.0 89 . 185/ 84 . . RECOVERY 07:38 0.0 0.0 92 . 185/ 84 . . Electronically signed by : Guero Peralta MD 04/17/2022 19:53:11
== END ==
PROVIDERS: PCP Emergency Medicine; Visit Provider Nurse Practitioner Family
DX: R06.09 Other forms of dyspnea (principal); R07.89 Other chest pain; I25.10 Atherosclerotic heart disease of native coronary artery without angina pectoris; I11.9 Hypertensive heart disease without heart failure; E78.5 Hyperlipidemia, unspecified; I65.23 Occlusion and stenosis of bilateral carotid arteries; F17.200 Nicotine dependence, unspecified, uncomplicated
CPT/HCPCS: 78452; 93017; 93306; A9502

== ENCOUNTER → 2022-06-11 10:00 | Outpatient (CLI) | payer MEDICAID, SELFPAY ==
[2022-06-11 15:05] LABS: Basophils # 0.1 K/mm3 (0-0.2); Basophils % 1.6 % (0.1-2.0); Eosinophils # 0.1 K/mm3 (0.0-0.4); Eosinophils % 1.9 % (0.1-12.0); Hematocrit 42.1 % (37.0-47.0); Lymphocytes # 2.5 K/mm3 (0.7-4.5); Lymphocytes % 33.5 % (10-50); Mean Corpuscular HGB Conc 33.3 g/dL (31.8-35.4); Mean Corpuscular Hemoglobin 27.9 pg (27.0-31.2); Mean Corpuscular Volume 83.9 fl (81-99); Monocytes # 0.4 K/mm3 (0.1-1.0); Monocytes % 4.9 % (1.7-9.3); Neutrophils # 4.3 K/mm3 (1.8-7.8); Neutrophils % 58.1 % (37.0-80.0); Platelet Count 323 K/mm3 (142-424); Red Blood Count 5.02 M/mm3 (4.20-5.40); Red Cell Distribution Width 13.9 % (11.5-17.5); White Blood Count 7.3 K/mm3 (4.8-10.8)
[2022-06-11 15:26] LABS: Alanine Aminotransferase 35 U/L (12-78); Albumin Level 4.5 g/dl (3.5-5.0); Albumin/Globulin Ratio 1.3 (1.1-1.8); Alkaline Phosphatase 128 U/L (38-126); Anion Gap 9.3 mEq/L (5-15); Aspartate Amino Transferase 56 U/L (14-36); Bilirubin,Total 0.4 mg/dl (0.2-1.3); Blood Urea Nitrogen 8 mg/dl (7-17); Carbon Dioxide 31 mmol/L (22.0-30.0); Chloride 105 mmol/L (98-107); Chol/HDL Ratio 11.7 (1-3.5); Cholesterol 315 mg/dl (140-200); Estimated Glomerular Filt Rate 74 ml/min (>60); GFR (African American) 89 ML/MIN (>60); Globulin 3.5 g/dL (1.3-3.2); Glucose 113 mg/dl (74-100); HDL Cholesterol 27 mg/dl (40-60); Potassium 4.3 mmoL/L (3.5-5.1); Sodium 141 mmol/L (136-145)
[2022-06-11 15:28] LABS: Triglycerides 521 mg/dl (30-150)
[2022-06-11 15:45] LABS: Free T4 (Free Thyroxine) 1.08 ng/dl (0.78-2.19)
[2022-06-11 15:50] LABS: Direct LDL Cholesterol 149.16 mg/dL (100-129)
[2022-06-11 15:59] LABS: Thyroid Stimulating Hormone 2.44 uIU/mL (0.465-4.68)
[2022-06-26 18:09] LABS: 1,25 Dihydroxy Vitamin D 47 pg/mL (.); 1,25-Dihydroxy, Vitamin D-2 <10 pg/mL (.); 1,25-Dihydroxy, Vitamin D-3 45 pg/mL (.)
== END ==
PROVIDERS: PCP Emergency Medicine; Visit Provider Emergency Medicine
DX: I25.10 Atherosclerotic heart disease of native coronary artery without angina pectoris (principal); I77.9 Disorder of arteries and arterioles, unspecified; E03.9 Hypothyroidism, unspecified; E66.3 Overweight; E55.9 Vitamin D deficiency, unspecified
CPT/HCPCS: 80053; 80061; 82652; 84439; 84443; 85025

== ENCOUNTER → 2022-07-04 13:34 | Outpatient (CLI) | payer MEDICAID, SELFPAY ==
[2022-07-04 15:23] LABS: Chol/HDL Ratio 9.3 (1-3.5); Cholesterol 315 mg/dl (140-200); HDL Cholesterol 34 mg/dl (40-60); Triglycerides 232 mg/dl (30-150); VLDL Cholesterol 46 mg/dL (0-40)
[2022-07-04 15:34] LABS: Direct LDL Cholesterol 209.01 mg/dL (100-129)
[2022-07-04 15:43] LABS: Hemoglobin A1C 4.9 % (4.0-6.0)
== END ==
PROVIDERS: PCP Emergency Medicine; Visit Provider Emergency Medicine
DX: E03.9 Hypothyroidism, unspecified (principal); R73.09 Other abnormal glucose; R79.89 Other specified abnormal findings of blood chemistry
CPT/HCPCS: 36415; 80061; 83036

== ENCOUNTER → 2022-09-04 23:11 | Outpatient (CLI) | payer MEDICAID, SELFPAY ==
[2022-09-04 20:01] LABS: Benzodiazepines Screen,Urine Negative ng/ml (<200)
[2022-09-04 20:02] LABS: Amphetamine/Metha Screen,Urine Negative ng/ml (<1000)
[2022-09-04 20:03] LABS: Barbiturates Screen,Urine Negative ng/ml (<200); Cannabinoid Screen,Urine Negative ng/ml (<50)
[2022-09-04 20:04] LABS: Cocaine Screen,Urine Negative ng/ml (<300)
[2022-09-04 20:05] LABS: Methadone Screen,Urine Negative ng/ml (<300); Opiate Screen,Urine Negative ng/ml (<300)
[2022-09-04 20:06] LABS: Phencyclidine Screen,Urine Negative ng/ml (<25)
== END ==
PROVIDERS: PCP Emergency Medicine; Visit Provider Emergency Medicine
DX: Z79.899 Other long term (current) drug therapy (principal)
CPT/HCPCS: 80305

== ENCOUNTER → 2022-11-30 23:26 | Outpatient (CLI) | payer MEDICAID, SELFPAY ==
[2022-11-30 18:37] LABS: Barbiturates Screen,Urine Negative ng/ml (<200)
[2022-11-30 18:38] LABS: Benzodiazepines Screen,Urine Negative ng/ml (<200)
[2022-11-30 18:39] LABS: Amphetamine/Metha Screen,Urine Negative ng/ml (<1000); Cannabinoid Screen,Urine Negative ng/ml (<50)
[2022-11-30 18:40] LABS: Cocaine Screen,Urine Negative ng/ml (<300)
[2022-11-30 18:41] LABS: Methadone Screen,Urine Negative ng/ml (<300)
[2022-11-30 18:42] LABS: Phencyclidine Screen,Urine Negative ng/ml (<25)
[2022-11-30 19:46] LABS: Opiate Screen,Urine Negative ng/ml (<300)
== END ==
PROVIDERS: PCP Emergency Medicine; Visit Provider Emergency Medicine
DX: F41.9 Anxiety disorder, unspecified (principal)
CPT/HCPCS: 80305

== ENCOUNTER 2023-01-11 16:05 | Outpatient (CLI) | payer MEDICAID, SELFPAY ==
[2023-01-11 16:07] VITALS: BP 151/103; PULSE 88; RESP 20; O2SAT 99; BMI 27.6
[2023-01-11 16:26] LABS: Basophils # 0.1 K/mm3 (0-0.2); Basophils % 1.2 % (0.1-2.0); Eosinophils # 0.3 K/mm3 (0.0-0.4); Eosinophils % 2.2 % (0.1-12.0); Hematocrit 41.7 % (37.0-47.0); Hemoglobin 13.5 g/dL (12.2-16.2); Lymphocytes # 4.5 K/mm3 (0.7-4.5); Lymphocytes % 36.8 % (10-50); Mean Corpuscular HGB Conc 32.4 g/dL (31.8-35.4); Mean Corpuscular Hemoglobin 27.1 pg (27.0-31.2); Mean Corpuscular Volume 83.7 fl (81-99); Mean Platelet Volume 7.6 fl (7.4-10.4); Monocytes # 0.5 K/mm3 (0.1-1.0); Monocytes % 4.3 % (1.7-9.3); Neutrophils # 6.8 K/mm3 (1.8-7.8); Neutrophils % 55.6 % (37.0-80.0); Platelet Count 399 K/mm3 (142-424); Red Blood Count 4.99 M/mm3 (4.20-5.40); Red Cell Distribution Width 15.7 % (11.5-17.5); White Blood Count 12.2 K/mm3 (4.8-10.8)
[2023-01-11 16:28] LABS: Chloride 108 mmol/L (98-107)
[2023-01-11 16:29] LABS: Potassium 4.3 mmoL/L (3.5-5.1); Sodium 143 mmol/L (136-145)
[2023-01-11 16:31] LABS: Alanine Aminotransferase 19 U/L (12-78); Alkaline Phosphatase 101 U/L (38-126); Aspartate Amino Transferase 31 U/L (14-36); Bilirubin,Total 0.6 mg/dl (0.2-1.3); Blood Urea Nitrogen 10 mg/dl (7-17); Creatinine Clearance Estimated 104 mL/min (50-200); Estimated Glomerular Filt Rate 86 ml/min (>60); GFR (African American) 104 ML/MIN (>60)
[2023-01-11 16:32] LABS: Albumin Level 4.6 g/dl (3.5-5.0); Anion Gap 14.3 mEq/L (5-15); Calcium 9.9 mg/dl (8.4-10.2); Carbon Dioxide 25 mmol/L (22.0-30.0); Globulin 4.8 g/dL (1.3-3.2); Glucose 109 mg/dl (74-100); Total Protein,Serum 9.4 g/dl (6.3-8.2)
[2023-01-11 16:55] VITALS: BP 180/95; PULSE 75; RESP 18; O2SAT 99
[2023-01-11 18:38] LABS: Amphetamine/Metha Screen,Urine Negative ng/ml (<1000)
[2023-01-11 18:39] LABS: Barbiturates Screen,Urine Negative ng/ml (<200)
[2023-01-11 18:40] LABS: Benzodiazepines Screen,Urine Positive ng/ml (<200)
[2023-01-11 18:41] LABS: Cocaine Screen,Urine Negative ng/ml (<300); Methadone Screen,Urine Negative ng/ml (<300)
[2023-01-11 18:42] LABS: Opiate Screen,Urine Negative ng/ml (<300)
[2023-01-11 18:43] LABS: Phencyclidine Screen,Urine Negative ng/ml (<25)
[2023-01-11 18:59] LABS: Cannabinoid Screen,Urine Negative ng/ml (<50)
== END 2023-01-11 16:55 | disposition home or self-care (01) ==
LOC: INF 16:05
PROVIDERS: PCP Emergency Medicine; Visit Provider Emergency Medicine
DX: E86.0 Dehydration (principal); Z79.899 Other long term (current) drug therapy
CPT/HCPCS: 80053; 80305; 85025; 96360; 96361

== ENCOUNTER → 2023-01-14 10:44 | Outpatient (CLI) | payer MEDICAID, SELFPAY ==
[2023-01-14 11:22] LABS: Adenovirus F 40/41, stool Not Detected (NotDetected); Astrovirus Not Detected (NotDetected); Campylobacter Not Detected (NotDetected); Clostridium Difficile A/B, PCR Not Detected (NotDetected); Cryptosporidium Not Detected (NotDetected); Cyclospora Cayetanesis Not Detected (NotDetected); Entamoeba histolytica Not Detected (NotDetected); Enteroaggregative E coli Not Detected (NotDetected); Enteropathogenic E coli Not Detected (NotDetected); Enterotoxigenic E coli Not Detected (NotDetected); Giardia lamblia Not Detected (NotDetected); Norovirus Not Detected (NotDetected); Plesimonas Shigalloides, PCR Not Detected (NotDetected); Rotavirus A Not Detected (NotDetected); Salmonella, PCR Not Detected (NotDetected); Sapovirus Not Detected (NotDetected); Shiga-like toxin E coli Not Detected (NotDetected); Shigella Enterovasive E coli Not Detected (NotDetected); Vibrio Cholerae Not Detected (NotDetected); Vibrio, PCR Not Detected (NotDetected); Yersinia Entercolitica, PCR Not Detected (NotDetected)
== END ==
PROVIDERS: PCP Emergency Medicine; Visit Provider Emergency Medicine
DX: R19.7 Diarrhea, unspecified (principal)
CPT/HCPCS: 87507

== ENCOUNTER → 2023-01-21 14:28 | Outpatient (CLI) | payer MEDICAID, SELFPAY ==
--- NOTE | 2023-01-21 14:31 | XR_ITS ---
FINAL REPORT CLINICAL HISTORY: aBD PAIN, bloating FINDINGS: A PA view of the chest was obtained. The cardiac and mediastinal silhouettes are within normal limits. The lungs are clear. There is no free air beneath the diaphragm. Upright and supine views of the abdomen were obtained. There is no evidence of small bowel obstruction. Air-fluid level seen in the stomach. Bowel gas pattern is otherwise normal. Calcifications in the pelvis likely represent phleboliths. No acute osseous abnormalities identified. IMPRESSION: No acute intrathoracic or intraabdominal abnormality. Reviewed, Interpreted and Dictated by Mackenzie Rebollar MD Transcribed by Eduarda Yanez Authenticated and [facility]
== END ==
PROVIDERS: PCP Emergency Medicine; Visit Provider Nurse Practitioner Family
DX: R10.9 Unspecified abdominal pain (principal)
CPT/HCPCS: 74021

== ENCOUNTER → 2023-03-04 07:19 | Outpatient (CLI) | payer MEDICAID, SELFPAY ==
[2023-03-04 22:16] LABS: Amphetamine/Metha Screen,Urine Negative ng/ml (<1000)
[2023-03-04 22:17] LABS: Barbiturates Screen,Urine Negative ng/ml (<200); Benzodiazepines Screen,Urine Negative ng/ml (<200)
[2023-03-04 22:18] LABS: Cannabinoid Screen,Urine Negative ng/ml (<50)
[2023-03-04 22:19] LABS: Cocaine Screen,Urine Negative ng/ml (<300); Methadone Screen,Urine Negative ng/ml (<300)
[2023-03-04 22:33] LABS: Opiate Screen,Urine Negative ng/ml (<300)
[2023-03-04 22:36] LABS: Phencyclidine Screen,Urine Negative ng/ml (<25)
== END ==
PROVIDERS: PCP Emergency Medicine; Visit Provider Emergency Medicine
DX: Z79.899 Other long term (current) drug therapy (principal)
CPT/HCPCS: 80305

== ENCOUNTER → 2023-03-14 07:58 | Outpatient (CLI) | payer MEDICAID, SELFPAY ==
--- NOTE | 2023-03-14 08:02 | CA_ITS ---
FINAL REPORT TECHNIQUE: Grayscale, color Doppler and duplex Doppler ultrasound of the kidneys, aorta and renal arteries was performed. Multiple velocities were measured. CLINICAL HISTORY: hypertension, smoker COMPARISON: None FINDINGS: Aorta velocity: 59 cm/sec Right kidney: 10.2 cm. No evidence of hydronephrosis or mass. Right intrarenal RI: 0.63-0.67 Right renal artery velocity: 223 cm/sec. Right RAR (Renal artery-Aortic Ratio): 3.8 Left Kidney: 10.1 cm. No evidence of hydronephrosis or mass. Left intrarenal RI: 0.63-0.70 Left renal artery velocity: 273 cm/sec. Left RAR (Renal Artery-Aortic Ratio): 4.67 IMPRESSION: Greater than 60% stenosis bilateral renal arteries. CT angiogram or postcontrast MR angiogram would be more sensitive for evaluation of possible renal artery stenosis. Reviewed, Interpreted and Dictated by Clayton Dillard MD Transcribed by Blanche Sherman Authenticated and [facility]
== END ==
PROVIDERS: PCP Emergency Medicine; Visit Provider Emergency Medicine
DX: I10 Essential (primary) hypertension (principal); Z87.891 Personal history of nicotine dependence
CPT/HCPCS: 93976

== ENCOUNTER → 2023-03-26 11:53 | Outpatient (CLI) | payer MEDICAID, SELFPAY | PROVIDERS: PCP Nurse Practitioner Family; Visit Provider Nurse Practitioner | DX: I11.9 Hypertensive heart disease without heart failure (principal); I25.10 Atherosclerotic heart disease of native coronary artery without angina pectoris; I70.1 Atherosclerosis of renal artery; I70.213 Atherosclerosis of native arteries of extremities with intermittent claudication, bilateral legs; I77.9 Disorder of arteries and arterioles, unspecified; R00.0 Tachycardia, unspecified; R07.89 Other chest pain; E78.5 Hyperlipidemia, unspecified; E66.3 Overweight; Z68.28 Body mass index [BMI] 28.0-28.9, adult; F17.200 Nicotine dependence, unspecified, uncomplicated | CPT/HCPCS: 93270 ==

== ENCOUNTER → 2023-04-04 07:54 | Outpatient (CLI) | payer MEDICAID, SELFPAY ==
--- NOTE | 2023-04-04 07:56 | NM_ITS ---
APPROVED REPORT Exam: Nuclear Stress Test Indication: chest pain Patient Location: Outpatient Stress Tech: Luz Stoll [place] Tech:LEONARDO Burnett RT(R)(N) Ht: 5 ft 5 in Wt: 171 lbs Bra Size: 38c HR: 93 bpm BP: 180/92 mmHg BSA: 1.85 m2 TID: 1.16 BMI: 28.4 History: chest pain Procedure: Patient received 0.4 mg of intravenous Lexiscan, resting heart rate 93 bpm, resting blood pressure 180/92 mmHg, with Lexiscan maximum heart rate achieved was 119 bpm which is 85 % of the maximum predicted heart rate and blood pressure was 205/94 mmHg. With Lexiscan, patient denied any complaint of chest pain. Cardiac Stress and Resting SPECT Images: Cardiac Stress and Resting SPECT images were obtained using technetium 99m Myoview 32.4 mCi stress and 10.24 mCi at rest. Resting and stress imaging in supine and prone positions demonstrate no evidence of fixed or reversible perfusion defects. Gated imaging demonstrates normal global and regional LV systolic function. LVEF is calculated at 59%. Conclusion: No evidence of fixed or reversible perfusion defects. Gated imaging demonstrates normal global and regional LV systolic function. LVEF is calculated at 59%. Of note, the patient's blood pressure is markedly elevated at baseline. BP control is recommended. Electronically signed by : Madisyn Coreas MD 04/04/2023 15:35:19
--- NOTE | 2023-04-04 09:41 | CA_ITS ---
APPROVED REPORT Exam: Pharmacologic Technologist: Luz Szymanski, Ht: 5 ft 5 in Wt: 173 lbs BSA: 1.86 m2 HR: 92 bpm BP: 180/92 mmHg Rhythm: NSR Medical History Medications: Amlodipine,,,,, Lisinopril,,,,, Aspirin,,,,, Gabapentin,,,,, Pantoprazole,,,,, Atorvastatin,,,,, SyMBICORT,,,,, Plavix,,,,, Ibuprofen,,,,, MiraLAX,,,,, KloNOPIN,,,,, BisOPROLOL,,,,, Stress Test Details Test: LEXISCAN Reason for pharmacologic stress test: physical limitation. HR Resting HR: 93 bpm Max Heart Rate (APMHR): 162 bpm Max HR Achieved: 119 bpm Target HR (85% APMHR): 138 bpm % of APMHR: 73 Recovery HR: 94 bpm BP Resting BP: 180.0/92.0 mmHg Max BP: 205.0/94.0 mmHg Recovery BP: 188.0/92.0 mmHg ECG Resting ECG: NSR, rightward axis Stress ECG: No significant ST changes Arrhythmia: PVCs Clinical Exercise duration: 04:00 min Highest Stage Achieved: Stress ECG Conclusion Symptoms: Very mild SOA. No CP. Arrhythmias/Ectopy: Occasional PVC. ST-T Changes: No significant ST changes. Conclusion: The patient's blood pressure is markedly elevated at baseline. Unremarkable Lexiscan stress. Myoview images reported separately. Test Summary REST . . . . . . . Resting REST 11:00 . . 93 . 180/ 92 . . Stage 1 01:00 . . 115 . . . . Stage 2 01:00 . . 112 . 205/ 94 . . Stage 3 01:00 . . 105 . 191/ 92 . . Stage 4 01:00 . . 101 . 188/ 88 . Stop exercise at 04:00 RECOVERY 01:00 . . 93 . . . . RECOVERY 02:00 . . 93 . 171/ 89 . . RECOVERY 03:00 . . 91 . 192/ 91 . . RECOVERY 04:00 . . 94 . 188/ 93 . . RECOVERY 04:13 . . 92 . 188/ 93 . . Electronically signed by : Madisyn Coreas MD 04/04/2023 15:34:21
== END ==
LOC: RAD 07:54
PROVIDERS: PCP Nurse Practitioner Family; Visit Provider Nurse Practitioner
DX: R07.89 Other chest pain (principal); I25.10 Atherosclerotic heart disease of native coronary artery without angina pectoris; R00.0 Tachycardia, unspecified; I11.9 Hypertensive heart disease without heart failure; E78.5 Hyperlipidemia, unspecified; I70.1 Atherosclerosis of renal artery; I70.213 Atherosclerosis of native arteries of extremities with intermittent claudication, bilateral legs; I77.9 Disorder of arteries and arterioles, unspecified; E66.3 Overweight; F17.200 Nicotine dependence, unspecified, uncomplicated; Z68.28 Body mass index [BMI] 28.0-28.9, adult
CPT/HCPCS: 78452; 93017; 93018; A9502; J2785

== ENCOUNTER 2023-06-06 11:30 | Outpatient (CLI) | payer MEDICAID, SELFPAY ==
[2023-06-06 11:51] LABS: Basophils # 0.1 K/mm3 (0-0.2); Basophils % 0.9 % (0.1-2.0); Eosinophils # 0.1 K/mm3 (0.0-0.4); Hemoglobin 7.1 g/dL (12.2-16.2); Lymphocytes # 2.7 K/mm3 (0.7-4.5); Lymphocytes % 37.6 % (10-50); Mean Corpuscular HGB Conc 28.4 g/dL (31.8-35.4); Mean Corpuscular Hemoglobin 19.6 pg (27.0-31.2); Mean Corpuscular Volume 68.9 fl (81-99); Mean Platelet Volume 7.5 fl (7.4-10.4); Monocytes # 0.4 K/mm3 (0.1-1.0); Monocytes % 5.7 % (1.7-9.3); Neutrophils # 3.8 K/mm3 (1.8-7.8); Neutrophils % 53.8 % (37.0-80.0); Platelet Count 375 K/mm3 (142-424); Red Blood Count 3.62 M/mm3 (4.20-5.40); Red Cell Distribution Width 16.9 % (11.5-17.5)
[2023-06-06 12:31] LABS: Alanine Aminotransferase 15 U/L (12-78); Albumin Level 4.2 g/dl (3.5-5.0); Albumin/Globulin Ratio 1.3 (1.1-1.8); Alkaline Phosphatase 116 U/L (38-126); Anion Gap 10.9 mEq/L (5-15); Aspartate Amino Transferase 18 U/L (14-36); Bilirubin,Total 0.3 mg/dl (0.2-1.3); Blood Urea Nitrogen 10 mg/dl (7-17); Calcium 9.3 mg/dl (8.4-10.2); Carbon Dioxide 29 mmol/L (22.0-30.0); Chloride 104 mmol/L (98-107); Chol/HDL Ratio 5.8 (1-3.5); Cholesterol 209 mg/dl (140-200); Estimated Glomerular Filt Rate 64 ml/min (>60); GFR (African American) 78 ML/MIN (>60); Globulin 3.3 g/dL (1.3-3.2); Glucose 113 mg/dl (74-100); HDL Cholesterol 36 mg/dl (40-60); Potassium 3.9 mmoL/L (3.5-5.1); Sodium 140 mmol/L (136-145); Total Protein,Serum 7.5 g/dl (6.3-8.2); Triglycerides 136 mg/dl (30-150); VLDL Cholesterol 27 mg/dL (0-40)
[2023-06-06 12:44] LABS: Direct LDL Cholesterol 124.58 mg/dL (100-129)
[2023-06-06 12:49] LABS: 25-OH Vitamin D, Total 14.2 ng/mL (30-100)
[2023-06-06 13:03] LABS: Thyroid Stimulating Hormone 1.31 uIU/mL (0.465-4.68)
[2023-06-06 18:02] LABS: Iron 16 ug/dL (37-170)
[2023-06-06 18:11] LABS: Total Iron Binding Capacity 427 ug/dL (265-497)
[2023-06-06 18:38] LABS: Ferritin 4.95 ng/ml (11.1-264)
== END 2023-06-06 23:59 ==
PROVIDERS: PCP Nurse Practitioner Family; Visit Provider Nurse Practitioner Family
DX: I10 Essential (primary) hypertension (principal); D64.9 Anemia, unspecified; E55.9 Vitamin D deficiency, unspecified; Z68.27 Body mass index [BMI] 27.0-27.9, adult; F17.210 Nicotine dependence, cigarettes, uncomplicated
CPT/HCPCS: 36415; 80053; 80061; 82306; 82728; 83540; 83550; 84443; 85025

== ENCOUNTER 2023-08-01 20:35 | Outpatient (CLI) | payer MEDICAID, SELFPAY ==
[2023-08-01 18:06] LABS: Basophils # 0.2 K/mm3 (0-0.2); Basophils % 1.8 % (0.1-2.0); Eosinophils # 0.2 K/mm3 (0.0-0.4); Eosinophils % 2.7 % (0.1-12.0); Hemoglobin 11.7 g/dL (12.2-16.2); Lymphocytes % 35.8 % (10-50); Mean Corpuscular HGB Conc 30.7 g/dL (31.8-35.4); Mean Corpuscular Hemoglobin 26.5 pg (27.0-31.2); Mean Corpuscular Volume 86.4 fl (81-99); Mean Platelet Volume 8.6 fl (7.4-10.4); Monocytes # 0.4 K/mm3 (0.1-1.0); Monocytes % 4.8 % (1.7-9.3); Neutrophils # 4.6 K/mm3 (1.8-7.8); Neutrophils % 54.9 % (37.0-80.0); Platelet Count 415 K/mm3 (142-424); Red Cell Distribution Width 21.9 % (11.5-17.5); White Blood Count 8.4 K/mm3 (4.8-10.8)
== END 2023-08-01 23:59 ==
LOC: LAB.DROPOF 20:36
PROVIDERS: PCP Nurse Practitioner Family; Visit Provider Nurse Practitioner Family
DX: D50.0 Iron deficiency anemia secondary to blood loss (chronic) (principal)
CPT/HCPCS: 85025

== ENCOUNTER 2023-09-04 16:00 | Outpatient (RCR) | payer MEDICAID, SELFPAY ==
--- NOTE | 2023-08-08 08:24 | HMH.PTOPEV ---
PT Outpatient Evaluation Rehab PT Outpatient Evaluation Start: 08/08/23 08:16 Freq: Status: Active Protocol: Document 08/08/23 08:16 JERMAINE (Rec: 08/08/23 08:24 JERMAINE [id number]) E-signed By Vishnu Irby, PT Outpatient Therapy Subjective History Subjective History Pt reports insidious onset left sided LBP beginning ~3 weeks ago. Pt reports pain and s/s have progressed w/ referred pain from left glut mm area to left lateral thigh to knee. Pt reports slight improvement of s/s w/recent course of steroids, 'but it's still not great.' Pt denies any other pertinent PMH. New diagnosis of cancer in past 12 No months? Chief Complaint Pain,Stiff,Paresthesia Symptom Type Ache,Throb,Sharp,Dull,Stabbing Symptoms Relieved By Rest/Positioning,Heat Symptoms Aggravated By Sitting,Physical Activity Prior Functional Limitations Lifting,Sitting Current Functional Limitations Lifting,Sitting Symptom Description Constant but Variable Level of pain today (0-10) 3 Pain scale - at its best (0-10) 3 Pain scale - at its worst (0-10) 8 Lumbopelvic Eval Posture Thoracic Spine Posture Standing Position Neutral Lumbar Spine Posture Standing Position Neutral Assistive device Assistive Devices None / NA Gait Observation General Gait Pattern Observation Antalgic Gait Palapation tenderness left lumbar spinal tenderness Yes: 3/4 paraspinal tenderness Yes: 3/4 buttock tenderness Yes: 3/4 Lumbar/Sacral Palpation Findings Tenderness,Trigger Point, Muscle Guarding Accessory Movement L-spine Vertebrae Accessory Movements Central P/A [place] that Elicit Symptoms L3 left L4 left L5 left Range of Motion Lumbar Spine Active Flexion Range of 0-55 Motion (degrees) Lumbar Spine Active Extension Range of 0-10 Motion (degrees) Left Lumbar Spine Lateral Flexion Active 0-35 Range of Motion (degrees) Right Lumbar Spine Lateral Flexion 0-25 Active Range of Motion (degrees) Lumbar Spine ROM Limitations Soft Tissue Tightness,Pain Manual Muscle Test Bilateral Knee Extension Strength Grade 5 Normal Knee Flexion Strength Grade 4 Good Hip Flexion Strength Grade 4 Good Hip Abduction Strength Grade 4- Good- Hip Adduction Strength Grade 4 Good Extensor Hallucis Longus Strength Grade 5 Normal Ankle Dorsiflexion Strength Grade 5 Normal Gastronemius/Soleus Strength Grade 5 Normal Special Tests Hip Piriformis Test Negative Right,Positive Left Sciatic Nerve Tension Test Negative Right,Positive Left Reverse Sciatic Nerve Tension Test Negative Left,Negative Right Lumbar Long Leslie Distraction Test/Manual Negative Traction Oswestry Index Section 1 Pain Intensity The pain comes and goes and is moderate Section 2 Personal Care (Washing,Dresing) change my way of washing or dressing in order to avoid pain Section 3 Lifting lifting heavy weights off the floor, but I can manage if they are Section 4 Walking I have some pain when walking but it does not increase with distance Section 5 Sitting Pain prevents me from sitting for more than 10 minutes Section 6 Standing I have some pain on standing, but it does not increase with time Section 7 Sleeping I get no pain in bed Section 8 Social Life Pain has no significant effect on my social life apart from limiting Section 9 Traveling Pain restricts me to short necessary journeys under 30 minutes Section 10 Changing Degreee of Pain My pain is neither getting better or worse Score and Risk Level Oswestry Sc 20 Oswestry Risk Level Moderate Disability Outpatient Therapy Assessment Impairments Problems/Impairmments Palpation Tenderness,Impaired Range of Motion,Impaired Strength,Impaired Gait Pattern ,Impaired Sitting,Impaired Driving,Impaired Lifting, Impaired Household Care, Subjective C/O Pain,Impaired Self Care/Self Management Prognosis Rehab Potential Good Clinical Impression Consistent with Diagnosis Yes Short Term Goals Number of Weeks 4 Decreased Palpation Tenderness Yes: 1-2/4 lumbar, glut mm Increase Range of Motion Yes: 50-75% of WFL LUMBAR AROM Increase Strength Yes: 4/5 B/L LE Increase Ability to Walk Yes: 30MIN Increase Ability to Sit Yes: 30MIN Restore Ability to Lift Objects to Waist Yes: 10# Level Improve Ability For Household Care Yes: 30MIN Improve Oswestry Score Yes: 14-16 Decrease Subjective C/O Pain Yes: 3/10 W/ABOVE ACTIVITIES Patient to be Ind w/ HEP Yes Nursing Home Goals Number of Weeks 6-8 Decreased Palpation Tenderness Yes: 0-1/4 LUMBAR, GLUT MM Increase Range of Motion Yes: WFL LUMABR AROM Increase Strength Yes: 5/5 B/L LE'S Improve Gait Pattern without Assistive Yes: WFL Device Increase Ability to Walk Yes: 60MIN Increase Ability to Sit Yes: 60MIN Increase Ability to Drive/Ride in Car Yes: 60MIN Restore Ability to Lift Objects to Waist Yes: 20# Level Improve Ability For Household Care Yes: 60MIN Improve Oswestry Score Yes: 8-10 Decrease Subjective C/O Pain Yes: 0-2/10 W/ABOVE ACTIVITIES Patient to be Ind w/ Advanced HEP Yes Outpatient Therapy Plan of Care Treatment Plan May Include Therapeutic Exercise Including Home Yes Exercise Program Manual Therapy Techniques Yes Neuromuscular Re-education Yes Therapeutic Activities to Return to Yes Previous Functional/Work Level Gait Training Yes ADL/Self Care Education Yes Mechanical Traction Yes Dry Needling Yes Thermal Modalities Yes Electrical Stimulation Yes Ultrasound/Phonophoresis Yes Eval/Re-Eval Yes Frequency Times per week 2-3 Duration Number of Weeks 6-8 Addendums This patient is a candidate for social No or vocational rehab? Patient/Guardian verbally acknowledges Yes understanding of treatment program and consents to further treatment? Patient/Guardian verbally acknowledges Yes understanding of diagnosis, prognosis and goals for treatment? Eval Complexity PT Charges 19262 - Low Complexity Shoulder/Elbow Eval Shoulder Objective Measurements Elbow Objective Measurements PHYSICIAN CERTIFICATION: I certify the specified therapy services for Fanny Vincent are required, authorized, and reviewed every 30 days.
== END 2023-09-04 17:00 | disposition home or self-care (01) ==
LOC: PT 16:00
PROVIDERS: Visit Provider Nurse Practitioner Family
DX: M54.50 Low back pain, unspecified (principal); M79.605 Pain in left leg
CPT/HCPCS: 97010; 97014; 97110; 97163; G0283

== ENCOUNTER 2023-10-01 14:13 | Outpatient (CLI) | payer MEDICAID, SELFPAY ==
--- NOTE | 2023-10-01 14:13 | CT_ITS ---
FINAL REPORT TECHNIQUE: Axial images were obtained from the lung apex to the mid abdomen by computed tomography. This study was performed with techniques to keep radiation doses as low as reasonably achievable (ALARA). Individualized dose reduction techniques using automated exposure control or adjustment of mA and/or kV according to the patient's size were employed. CLINICAL HISTORY: lung cancer screening 1 pack per day x 40 yrs emphysema COMPARISON: 09/04/2021 FINDINGS: CHEST CT LOW DOSE CTDI vol (mGy): 2.90 DLP (mGy-cm): 101.07 There is no axillary adenopathy. There is no hilar or mediastinal adenopathy. The heart is normal in size. There is no pericardial or pleural effusion. Note is made of mild scarring. Again identified are multiple small nodules. There is a stable, 3 mm right upper lobe nodule well seen on image 22. There is stable, 5 mm anterior left lower lobe nodule well seen on image 41. Other smaller nodules are stable. There is a calcified granuloma in the right lower lobe. Limited images of the upper abdomen reveal cholecystectomy. IMPRESSION: Stable nodules as detailed above. Lung RADS category 1. Recommend 12 month follow-up low-dose chest CT. Reviewed, Interpreted and Dictated by Viet Domingo III, MD Transcribed by Deepthi Ruiz Authenticated and [facility]
== END 2023-10-01 23:59 | disposition home or self-care (01) ==
LOC: RAD 14:13
PROVIDERS: PCP Nurse Practitioner Family; Visit Provider Nurse Practitioner Family
DX: R06.02 Shortness of breath (principal)
CPT/HCPCS: 71271

== ENCOUNTER 2023-10-08 15:50 | Outpatient (CLI) | payer MEDICAID, SELFPAY ==
--- NOTE | 2023-10-08 15:52 | MM_ITS ---
PROCEDURE INFORMATION: Exam: MG Bilateral Screening 3D Mammography Exam date and time: 10/08/2023 3:47 PM Age: 58 years old Clinical indication: Screening examination TECHNIQUE: Imaging protocol: Bilateral Screening tomosynthesis and 2D mammography including computer-aided detection (CAD) when performed. COMPARISON: 1. MG MM DIG SCREENING MAMM BI W/CAD 08/07/2021 12:55 PM 2. MG MM DIG SCREENING MAMM BI W/CAD 06/30/2020 8:24 AM FINDINGS: MAMMOGRAPHY: Breast composition: There are scattered areas of fibroglandular density. Mass: None. Architectural distortion: None. Calcifications: No suspicious calcifications. Asymmetric density: None. Skin thickening: None. Axillary adenopathy: None. IMPRESSION: No mammographic evidence of malignancy. Annual screening is recommended unless otherwise clinically indicated. ASSESSMENT: BI-RADS Category 1: Negative
== END 2023-10-08 23:59 | disposition home or self-care (01) ==
LOC: RAD 15:51
PROVIDERS: PCP Nurse Practitioner Family; Visit Provider Nurse Practitioner Family
DX: Z12.31 Encounter for screening mammogram for malignant neoplasm of breast (principal)
CPT/HCPCS: 77063; 77067

== ENCOUNTER 2023-10-29 14:33 | Outpatient (CLI) | payer MEDICAID, SELFPAY ==
[2023-10-29 18:09] LABS: Basophils # 0.1 K/mm3 (0-0.2); Basophils % 1.7 % (0.1-2.0); Eosinophils # 0.2 K/mm3 (0.0-0.4); Eosinophils % 2.9 % (0.1-12.0); Hematocrit 35.9 % (37.0-47.0); Hemoglobin 11.8 g/dL (12.2-16.2); Lymphocytes # 2.5 K/mm3 (0.7-4.5); Lymphocytes % 30.6 % (10-50); Mean Corpuscular HGB Conc 32.8 g/dL (31.8-35.4); Mean Corpuscular Hemoglobin 28.4 pg (27.0-31.2); Mean Corpuscular Volume 86.6 fl (81-99); Mean Platelet Volume 8.5 fl (7.4-10.4); Monocytes # 0.5 K/mm3 (0.1-1.0); Monocytes % 6.5 % (1.7-9.3); Neutrophils # 4.6 K/mm3 (1.8-7.8); Neutrophils % 58.2 % (37.0-80.0); Platelet Count 343 K/mm3 (142-424); Red Blood Count 4.15 M/mm3 (4.20-5.40); Red Cell Distribution Width 14.3 % (11.5-17.5)
[2023-10-29 18:26] LABS: Alanine Aminotransferase 21 U/L (12-78); Albumin Level 4.4 g/dl (3.5-5.0); Albumin/Globulin Ratio 1.3 (1.1-1.8); Alkaline Phosphatase 108 U/L (38-126); Anion Gap 13.8 mEq/L (5-15); Aspartate Amino Transferase 24 U/L (14-36); Bilirubin,Total 0.4 mg/dl (0.2-1.3); Blood Urea Nitrogen 14 mg/dl (7-17); Calcium 9.8 mg/dl (8.4-10.2); Carbon Dioxide 28 mmol/L (22.0-30.0); Chloride 102 mmol/L (98-107); Chol/HDL Ratio 6.7 (1-3.5); Cholesterol 280 mg/dl (140-200); Estimated Glomerular Filt Rate 64 ml/min (>60); GFR (African American) 78 ML/MIN (>60); Globulin 3.5 g/dL (1.3-3.2); Glucose 130 mg/dl (74-100); HDL Cholesterol 42 mg/dl (40-60); Potassium 3.8 mmoL/L (3.5-5.1); Sodium 140 mmol/L (136-145); Total Protein,Serum 7.9 g/dl (6.3-8.2); Triglycerides 309 mg/dl (30-150); VLDL Cholesterol 62 mg/dL (0-40)
[2023-10-29 18:37] LABS: Direct LDL Cholesterol 169.38 mg/dL (100-129)
[2023-10-29 18:44] LABS: 25-OH Vitamin D, Total 30.6 ng/mL (30-100)
[2023-10-29 19:39] LABS: Folate 8.71 ng/mL
[2023-10-29 20:23] LABS: Iron 64 ug/dL (37-170)
[2023-10-29 20:34] LABS: Total Iron Binding Capacity 312 ug/dL (265-497)
[2023-10-30 10:47] LABS: Thyroid Stimulating Hormone 1.27 uIU/mL (0.465-4.68)
== END 2023-10-29 23:59 | disposition home or self-care (01) ==
LOC: LAB.DROPOF 10-30 14:33
PROVIDERS: PCP Nurse Practitioner Family; Visit Provider Nurse Practitioner Family
DX: R06.02 Shortness of breath (principal); D50.0 Iron deficiency anemia secondary to blood loss (chronic); Z68.30 Body mass index [BMI] 30.0-30.9, adult; E66.9 Obesity, unspecified
CPT/HCPCS: 80050; 80053; 80061; 82306; 82746; 83540; 83550; 84443; 85025

== ENCOUNTER 2023-11-18 07:44 | Outpatient (CLI) | payer MEDICAID, SELFPAY ==
--- NOTE | 2023-11-18 07:44 | FL_ITS ---
FINAL REPORT CLINICAL HISTORY: trouble swallowing 926.68 dap 1.56 fluoro FINDINGS: ESOPHAGRAM HISTORY: Dysphagia PROCEDURE: The patient ingested barium. Effervescent crystals were also administered. 16 fluoroscopic spot films were obtained. Fluoro time: 1 minute 56 seconds DAP: 926.68 uGy.m2 FINDINGS: The esophagus is normal. There is a small sliding typehiatal hernia. There is no gastroesophageal reflux. Peristalsis is normal. A 13 mm barium tablet passes through the esophagus and into the stomach without delay. IMPRESSION: Small sliding-type hiatal hernia. Films reviewed , interpreted and dictated by Dr. Fabian. Transcribed by Gaurav Sun PA-C. Reviewed, Interpreted and Dictated by Latisha Fabian MD Transcribed by MIRLANDE Carson Authenticated and [facility]
[2023-11-18] MEDS: E-Z-GASII EFFERVESCENT GRANULES;1PK 1 EACH PO (08:19)
[2023-11-18] MEDS: BARIUM SULFATE(LIQUID E-Z-PAQUE);355ML BOTTLE 355 ML PO (08:19)
[2023-11-18] MEDS: BARIUM SULFATE (E-Z-HD 340GM);135ML BOTTLE 135 ML PO (08:19)
== END 2023-11-18 23:59 | disposition home or self-care (01) ==
LOC: RAD 07:44
PROVIDERS: PCP Nurse Practitioner Family; Visit Provider Nurse Practitioner
DX: R13.19 Other dysphagia (principal)
CPT/HCPCS: 74220

== ENCOUNTER 2023-11-29 09:06 | Outpatient (CLI) | payer MEDICAID, SELFPAY ==
--- NOTE | 2023-11-29 09:07 | CA_ITS ---
APPROVED REPORT EXAM: Comprehensive 2D, Doppler, and color-flow Echocardiogram Admissions Clinician: Beata Buenrostro RVT Ht: 5 ft 5 in Wt: 185lbs BSA: 1.91 BP: 173/86 mmHg Indications: CP,CAD,CARLA,HTN,EDEMA,HLD 2D Dimensions LA Volume 23.00 mL LA Volume Index 11.98 mL/m2 (M/F) 16-34 M-Mode Dimensions RVDd 2.77 cm (0.9-2.6) LA Diam 3.15 cm (1.9-4.0) LVDd 4.90 cm (3.5-5.7) LVDs 3.19 cm (3.5-5.7) IVSd 0.38 cm (0.6-1.1) PWd 0.65 cm (0.6-1.1) EF (Teich) 64.00% FS 34.90% EDV (Teich) 112.80 mL TAPSE 2.26 (<1.7) ESV (Teich) 40.60 mL LV Diastology E Decel Time 173 (160-240 msec) E/A Ratio 0.7 Aortic Valve BRICE Index 1.37 cm2/m2 AoV Peak Chai. 130.0 (50-130 cm/s) AO Peak GR. 6.80 mmHg AO Mean GR. 3.50 (<5 mmHg) AO VTI 25.8 (18-25 cm) BRICE (VTI) 2.69 (2.5-4.5 cm2) Mitral Valve MV E Max Chai. 61.0 (40-130 cm/s) MV A Velocity 86.0 (40-130 cm/s) E/A Ratio 0.71 MV PHT 51.0 ms Pulmonary Valve PV Peak Velocity 74.0 (50-150 cm/s) Tricuspid Valve TR P. Velocity 119.00 cm/s RAP Estimate 10.00 mmHg RVSP 15.70 mmHg Left Ventricle The left ventricle is normal size. The left ventricular systolic function is normal. The left ventricular ejection fraction is within the normal range. There is increased LV wall thickness. The septum is asynchronous. No regional wall motion abnormalities are noted. Transmitral Doppler flow pattern suggests impaired LV relaxation. LVEF is 60%. Right Ventricle Right ventricle is mildly dilated. The right ventricular systolic function is normal. Atria The left atrium size is normal. The right atrium size is normal. There is no Doppler evidence of interatrial shunt. Aortic Valve The aortic valve opens well. There is no aortic valvular stenosis. Trace aortic regurgitation. Mitral Valve The mitral valve is normal in structure. No evidence of mitral valve stenosis. There is no mitral valve regurgitation noted. Tricuspid Valve The tricuspid valve leaflets are thin and pliable. Trace tricuspid regurgitation. There is insufficient TR jet to estimate RVSP. Pulmonic Valve The pulmonary valve is normal in structure. Trace pulmonic regurgitation. Great Vessels The aortic root is normal in size. The ascending aorta is normal in size. IVC is normal in size and collapses >50% with inspiration. Pericardium There is no pericardial effusion. Other Information Study Quality: Technically Difficult Conclusion Technically difficult study due to poor acoustic windows. Normal biventricular systolic function. Mild RV dilation. No significant valvular stenosis or regurgitation. Electronically signed by : Madisyn Coreas MD 12/01/2023 22:48:54
== END 2023-11-29 23:59 | disposition home or self-care (01) ==
LOC: RT 09:07
PROVIDERS: PCP Nurse Practitioner Family; Visit Provider Nurse Practitioner
DX: I51.89 Other ill-defined heart diseases (principal); R07.89 Other chest pain; R60.9 Edema, unspecified
CPT/HCPCS: 93306

== ENCOUNTER 2023-12-03 10:57 | Day surgery (SDC) | payer MEDICAID, SELFPAY ==
[2023-12-03] VITALS (8 sets, daily range): BP systolic 110–177; BP diastolic 70–99; PULSE 71–84; RESP 18–19; O2SAT 95–98; BMI 30.7
--- NOTE | 2023-12-03 07:05 | IR_ITS ---
APPROVED REPORT Patient Location: Outpatient [place] Cutting Machine Operator: LEONARDO Mendez RT (R) PROCEDURES Left heart catheterization Left ventriculogram Selective coronary angiogram Drug-eluting stent splint to the mid LAD Intravascular ultrasound of left main artery Drug-eluting stent deployment to the ostial dominant right coronary artery followed by drug-eluting stent deployment to the distal dominant right coronary INDICATION Coronary artery disease, Angina pectoris, Abnormal Myoview, Informed consent was obtained prior to the procedure. COMPLICATIONS None Estimated Blood Loss: Less than 10 mls TECHNIQUE One percent lidocaine used to anesthetize the right anterior aspect of the wrist. The right radial artery was accessed via the Seldinger technique. A 6 Polish sheath was placed in the right radial artery. 2.5 mg of Verapamil, 800 mcg of nitroglycerin, 1mg Lidocaine and 5000 U Heparin were given through the arterial sheath. The papa catheter was also used to perform left heart catheterization, left ventriculogram and selective coronary angiogram. At the end the diagnostic angiogram therapeutic heparin was administered giving a therapeutic ACT and the guide catheter was placed in left main artery followed by a Choice PT export wire placed down the LAD. A 2.25 x 22 mm [place] frontier stent was delivered with the assistance of a guide liner into the mid LAD and deployed at 20 sunita. JORDANA-3 flow was present before and after the procedure. After achieving excellent angiographic results the left main artery underwent interrogation due to its angiographic ambiguity. The MLA of the ostial left main artery was in excess of 10 mm???. Because this did not not meet hemodynamic significance the apparatus was removed and the catheter was placed in the right coronary artery which caused significant dampening. A BMW wire was placed distally and a 3.5 x 38 mm [place] frontier stent was deployed at 12 sunita in the distal right coronary to reducing multiple stenoses to 0%. An additional 3.5 x 12 mm [place] frontier stent was placed in the ostial proximal segment and deployed at 24 sunita reducing the stenosis to 0% with no additional dampening upon catheter reinsertion. At the end the procedure the apparatus was removed the sheath was removed good hemostasis was achieved using TR banding patient was transferred to the postop putting in stable addition ANGIOGRAPHIC RESULTS The left main artery Has an ostial angiographically indeterminate lesion which proved to be 20% by intravascular ultrasound The left anterior descending artery Has proximal and 20 to 30% stenosis followed by a stent which has 30% stenosis proximal to the stent with distal eccentric 80 to 90% stenoses followed by an additional distal 40% stenosis. The circumflex artery Small nondominant with proximal and mid vessel 40% stenosis The right coronary artery Large and dominant with an ostial 60 to 70% stenosis which caused severe dampening followed by stents in the proximal mid and distal segment which are widely patent. Distal to the stent there is a tubular 50% stenosis followed by a mostly eccentric 70% stenosis The AREVALO ventriculogram reveals 60% The left ventricular end-diastolic pressure 20 mmHg IMPRESSION Severe mid LAD disease as described above Successful stent to the mid LAD severe disease reduced to 0% with 1 drug-eluting stent Successful intravascular ultrasound of the ostial left main artery which demonstrated 20% stenosis by plaque criteria Severe disease in the ostial and distal dominant right coronary followed by stenting the ostial segment reducing the lesion to 0% with 1 drug-eluting stent with additional noncontiguous stenting of the distal vessel with 1 additional drug-eluting stent reducing the lesion to 0% Preserved ejection fraction Mildly elevated LVEDP PLAN 1. Dual antiplatelet therapy 2. Cardiac rehabilitation 3. Avoidance of tobacco products 4. Risk factor modification 5. LDL less than 55 to achieve the try intensity statin Electronically signed by : José Miguel Hoover MD 12/03/2023 14:14:25
[2023-12-03 11:51] LABS: Chloride 107 mmol/L (98-107); Potassium 4.2 mmoL/L (3.5-5.1); Sodium 141 mmol/L (136-145)
[2023-12-03 11:54] LABS: Anion Gap 14.2 mEq/L (5-15); Blood Urea Nitrogen 14 mg/dl (7-17); Calcium 9.1 mg/dl (8.4-10.2); Carbon Dioxide 24 mmol/L (22.0-30.0); Creatinine Clearance Estimated 73 mL/min (50-200); Estimated Glomerular Filt Rate 51 ml/min (>60); GFR (African American) 62 ML/MIN (>60); Glucose 132 mg/dl (74-100)
[2023-12-03 12:07] LABS: Basophils # 0.1 K/mm3 (0-0.2); Basophils % 1.6 % (0.1-2.0); Eosinophils # 0.3 K/mm3 (0.0-0.4); Eosinophils % 3.2 % (0.1-12.0); Hematocrit 39.5 % (37.0-47.0); Lymphocytes # 2.8 K/mm3 (0.7-4.5); Lymphocytes % 36.6 % (10-50); Mean Corpuscular HGB Conc 32.9 g/dL (31.8-35.4); Mean Corpuscular Hemoglobin 28.8 pg (27.0-31.2); Mean Corpuscular Volume 87.3 fl (81-99); Mean Platelet Volume 7.7 fl (7.4-10.4); Monocytes # 0.5 K/mm3 (0.1-1.0); Monocytes % 5.8 % (1.7-9.3); Neutrophils # 4.1 K/mm3 (1.8-7.8); Neutrophils % 52.8 % (37.0-80.0); Platelet Count 320 K/mm3 (142-424); Red Blood Count 4.52 M/mm3 (4.20-5.40); Red Cell Distribution Width 14.4 % (11.5-17.5); White Blood Count 7.7 K/mm3 (4.8-10.8)
[2023-12-03] MEDS: HEPARIN 1,000 UNITS/ML 10ML VIAL (CATH LAB) 10000 UNIT IV (13:08)
[2023-12-03] MEDS: diphenhydrAMINE 50MG/ML VIAL 50 MG IV (13:08)
[2023-12-03] MEDS: LIDOCAINE 1% 10ML MDV 20 ML IJ (13:08)
[2023-12-03] MEDS: MIDAZOLAM HCL 1MG/1ML 5ML VIAL 1 MG IV (13:10)
[2023-12-03] MEDS: 0.9 % SODIUM CHLORIDE 500 ML 25 ML IV (13:11)
[2023-12-03] MEDS: FENTANYL 100MCG/2ML VIAL 50 MCG IV (13:11)
[2023-12-03] MEDS: HEPARIN 1,000 UNITS/500ML NS (CATH LAB) 3000 UNIT IV (13:11)
[2023-12-03] MEDS: VERAPAMIL 2.5MG/ML 2ML VIAL 2.5 MG IV (13:12)
[2023-12-03] MEDS: MIDAZOLAM 2MG/2ML VIAL 1 MG IV ×2 (13:38→13:52)
[2023-12-03] MEDS: IOPAMIDOL-370 (76%);100ML BOTTLE 120 ML IV (15:03)
[2023-12-03 15:06] LABS: CATHL Activated Clotting Time 243 SEC (74-125)
[2023-12-03] MEDS: CLOPIDOGREL 75MG TAB 75 MG PO (16:20)
== END 2023-12-03 16:30 | disposition home or self-care (01) ==
PROVIDERS: PCP Nurse Practitioner Family; Visit Provider Internal Medicine
DX: I25.118 Atherosclerotic heart disease of native coronary artery with other forms of angina pectoris (principal); R07.89 Other chest pain; Z79.899 Other long term (current) drug therapy; I10 Essential (primary) hypertension; F17.290 Nicotine dependence, other tobacco product, uncomplicated; I70.1 Atherosclerosis of renal artery; I70.213 Atherosclerosis of native arteries of extremities with intermittent claudication, bilateral legs; I65.23 Occlusion and stenosis of bilateral carotid arteries; I77.1 Stricture of artery
CPT/HCPCS: 80048; 85025; 85347; 92928; 92978; 93458; 99152; 99153; C1725; C1769; C1874; C9600; J1200; J1644; J2250; J3010; Q9967

== ENCOUNTER 2023-12-06 11:52 | Outpatient (CLI) | payer MEDICAID, SELFPAY ==
[2023-12-06 12:23] LABS: Basophils # 0.1 K/mm3 (0-0.2); Basophils % 1.3 % (0.1-2.0); Eosinophils # 0.3 K/mm3 (0.0-0.4); Eosinophils % 3.9 % (0.1-12.0); Hematocrit 39.5 % (37.0-47.0); Hemoglobin 12.4 g/dL (12.2-16.2); Lymphocytes # 3.2 K/mm3 (0.7-4.5); Mean Corpuscular HGB Conc 31.3 g/dL (31.8-35.4); Mean Corpuscular Hemoglobin 27.8 pg (27.0-31.2); Mean Corpuscular Volume 88.6 fl (81-99); Mean Platelet Volume 7.6 fl (7.4-10.4); Monocytes # 0.6 K/mm3 (0.1-1.0); Monocytes % 6.4 % (1.7-9.3); Neutrophils # 4.4 K/mm3 (1.8-7.8); Neutrophils % 51.4 % (37.0-80.0); Platelet Count 301 K/mm3 (142-424); Red Blood Count 4.46 M/mm3 (4.20-5.40); Red Cell Distribution Width 14.6 % (11.5-17.5); White Blood Count 8.6 K/mm3 (4.8-10.8)
[2023-12-06 12:39] LABS: Chloride 107 mmol/L (98-107); Potassium 4.4 mmoL/L (3.5-5.1); Sodium 139 mmol/L (136-145)
[2023-12-06 12:42] LABS: Anion Gap 14.4 mEq/L (5-15); Blood Urea Nitrogen 16 mg/dl (7-17); Carbon Dioxide 22 mmol/L (22.0-30.0); Estimated Glomerular Filt Rate 51 ml/min (>60); GFR (African American) 62 ML/MIN (>60); Glucose 123 mg/dl (74-100)
== END 2023-12-06 23:59 | disposition home or self-care (01) ==
LOC: LAB 11:53
PROVIDERS: PCP Nurse Practitioner Family; Visit Provider Internal Medicine
DX: I25.10 Atherosclerotic heart disease of native coronary artery without angina pectoris (principal); Z98.61 Coronary angioplasty status; F17.290 Nicotine dependence, other tobacco product, uncomplicated
CPT/HCPCS: 36415; 80048; 85025

== ENCOUNTER 2023-12-12 14:31 | Observation (INO) | payer MEDICAID, SELFPAY ==
[2023-12-12] VITALS (47 sets, daily range): BP systolic 105–175; BP diastolic 60–95; PULSE 69–87; RESP 16–20; TEMP 36.6–37; O2SAT 95–100; BMI 31.1
--- NOTE | 2023-12-12 07:06 | IR_ITS ---
APPROVED REPORT Patient Location: Outpatient Game Producer: LEONARDO Mendez RT (R) PROCEDURES Right femoral arterial access Catheter placement in the abdominal aorta Abdominal aortography Bilateral iliofemoral runoff Bilateral selective renal angiography Bare-metal stent deployment to the distal abdominal aorta extending into the right common iliac artery Bare-metal stent deployment to the distal abdominal aorta extending into the left common iliac artery INDICATION Abnormal renal duplex, Renal artery stenosis, Renovascular hypertension, [place] claudication class III-IV, Atherosclerotic plaque in the bilateral common iliac arteries Informed consent was obtained prior to the procedure. COMPLICATIONS NONE Estimated Blood Loss: LESS THAN 10 ML TECHNIQUE 1% lidocaine used anesthetize right groin the right femoral artery was accessed via the center technique and a 5 Jamaican sheath is placed in the right femoral artery. A JR4 catheter was used to perform bilateral selective renal angiography. At the end of the diagnostic renal angiogram a pigtail catheter was inserted down into the abdominal aorta and bilateral iliofemoral runoff was performed. At this point 1% lidocaine was used to anesthetize the left groin and the left femoral was accessed via the Salinger technique with a 6 [place] Brite tip sheath being inserted into the left femoral artery. Retrograde angiography was performed. Therapeutic heparin was administered and an advantage wire was used to negotiate the stenosis in the left common iliac artery. The 5 Jamaican sheath was exchanged for a long 6 Jamaican sheath in the right groin. Two 8 mm x 57 mm balloon mounted bare-metal stents were deployed in the distal abdominal aorta extending into the bilateral proximal common iliac arteries. There were initially deployed at 10 and then 12 sunita. An 9 mm x 20 mm balloon was then placed in the right groin into the proximal portion of the stent in the distal abdominal aorta as well as a 9 mm x 40 mm balloon placed in the left sided stent. Both balloons were deployed simultaneously at 12 sunita further post dilating. Following this the balloons were removed and a pigtail catheter was placed in abdominal aorta where abdominal aortography with bilateral iliofemoral angiography was performed. Excellent angiograph results were obtained therefore the apparatus was removed the patient was transferred to the postop holding area in stable condition for sheath removal ANGIOGRAPHIC RESULTS Right renal artery singular normal Left renal artery singular normal Distal abdominal aorta is mildly calcified Right common iliac artery has an eccentric calcified 40% stenosis right internal iliac arteries patent right external iliac artery and right common femoral artery have long tubular 20% stenoses. The right profunda femoris artery is widely patent the right superficial femoral artery is patent with 30% calcified stenoses in Naif's canal with a widely patent right popliteal artery. There is three-vessel runoff below the knee on the right side Left common iliac artery has an ostial concentric 90% stenosis followed by an additional 40% stenosis. The left internal and external iliac arteries are patent left common femoral artery is patent the left profunda femoris and left superficial femoral arteries are patent the left popliteal artery is patent there is three-vessel runoff below the knee IMPRESSION Normal renal arteries bilaterally Critical disease in the left common iliac artery and a concentric manner with mild to moderate disease in the right common iliac artery which necessitates kissing stents in order to avoid plaque shift going from the left to right Successful reconstruction of the distal abdominal aorta and aortic iliac bifurcation critical left disease reduced to less than 10% with kissing stents as described above PLAN 1. Dual antiplatelet therapy for 1 month 2. Patient needs to be admitted to the hospital due to having bilateral 6 Jamaican sheath in her groin requiring manual pull 3. Chemistry panel in the morning along with CBC 4. Avoidance of tobacco products 5. Risk factor modification Electronically signed by : José Miguel Hoover MD 12/12/2023 15:13:43
[2023-12-12] MEDS: LIDOCAINE 1% 10ML MDV 20 ML IJ (12:44)
[2023-12-12] MEDS: 0.9 % SODIUM CHLORIDE 500 ML 25 ML IV (12:44)
[2023-12-12] MEDS: HEPARIN 1,000 UNITS/500ML NS (CATH LAB) 3000 UNIT IV (12:45)
[2023-12-12] MEDS: MIDAZOLAM HCL 1MG/1ML 5ML VIAL 1 MG IV (12:50)
[2023-12-12] MEDS: FENTANYL 100MCG/2ML VIAL 50 MCG IV (12:51)
[2023-12-12] MEDS: diphenhydrAMINE 50MG/ML VIAL 50 MG IV (12:54)
[2023-12-12] MEDS: HEPARIN 1,000 UNITS/ML 10ML VIAL (CATH LAB) 10000 UNIT IV (13:26)
[2023-12-12] MEDS: PROTAMINE SULFATE 50MG/5ML VIAL (CATH LAB) 50 MG IV (13:51)
[2023-12-12] MEDS: PROPOFOL 10MG/ML 20ML VIAL 180 MG IV (13:52)
[2023-12-12] MEDS: IOPAMIDOL-250 (51%) 100ML BOT 200 ML IV (13:55)
[2023-12-12 13:57] LABS: CATHL Activated Clotting Time 277 SEC (74-125)
--- NOTE | 2023-12-12 14:45 | EXP.HP ---
History of Present Illness *Admission Date: 12/12/23 *Reason for visit:: PAD *History of present illness: 58-year-old female who presented for elective outpatient angiography. Patient had history of [place] claudication class III/IV along with atherosclerotic plaques in the bilateral common iliac arteries. Brought in for elective lower extremity angiography. Had significant disease required stenting of aorta and iliacs. Had bilateral femoral approaches. 6 Kiswahili sheaths were used. Due to necessity to lay flat for extended period and achieve hemostasis by hand, cardiology requested monitoring overnight due to risk of bleeding and need for serial labs and monitoring of insertion sites. Patient denies any chest pain or shortness of breath upon arrival to the floor. Overall feels well. Addition patient cyst of the attention, bipolar, GERD. [facility] Disclaimer: The information contained in this section may have been updated after the patient was seen, as this information can be updated by other users. Medical History Edema Diastolic dysfunction Claudication History of heart attack CARLA (obstructive sleep apnea) Abnormal renal ultrasound Tachycardia Renal artery stenosis Bipolar II disorder Dyspnea Carotid artery stenosis Pulmonary nodules Carotid artery disease HHD (hypertensive heart disease) Vitamin D deficiency (~09/03/17) Hyperlipidemia (~09/03/17) Surgical History H/O cardiac catheterization History of colonoscopy Family History Mother Family history of cancer Father Cancer Social History Smoking Status: Current every day smoker tobacco type: e-cigarettes second hand exposure: No alcohol intake: never counseling provided: none substance use type: former substance user and opiates current occupational status: unemployed Travel in the last 8 weeks: None household members: spouse housing: house number of children: 1 current occupation: [employer] [place] current occupational exposures/hazards: No caffeine: Yes do you feel safe at home: Yes victim of physical abuse: No victim of emotional abuse: No victim of sexual abuse: No Review of Systems Review of Systems Review of systems (narrative): 14 point review of systems performed, pertinent positives and negatives as per HPI Meds Home Medications and Allergies Home Medications ?Medication ?Instructions ?Recorded ?Confirmed ?Type aspirin 81 mg tablet,delayed 81 mg PO DAILY 03/09/19 12/12/23 History release fluticasone furoate 100 1 inh inhalation DAILY #60 ea 09/04/23 12/12/23 Rx mcg-vilanterol 25 mcg/dose inhalation powder (Breo Ellipta) atorvastatin 80 mg tablet (Lipitor) 80 mg PO HS #30 tabs 11/10/23 12/12/23 Rx bisoprolol fumarate 10 mg tablet 10 mg PO DAILY #90 tabs 11/14/23 12/12/23 Rx bupropion HCl 300 mg 24 hr tablet, 300 mg PO DAILY #90 tabs 11/28/23 12/12/23 Rx extended release cariprazine 1.5 mg capsule 1.5 mg PO DAILY #90 caps 11/28/23 12/12/23 Rx (Vraylar) inclisiran 284 mg/1.5 mL 284 mg (1.5 mL) SQ [id number] 2 12/10/23 12/12/23 Rx subcutaneous syringe (Leqvio) doses #1.5 mL albuterol sulfate 90 mcg/actuation 2 puff inhalation Q4HP PRN 12/12/23 12/12/23 History aerosol inhaler shortness of breath or wheezing clopidogrel 75 mg tablet 75 mg PO DAILY 12/12/23 12/12/23 History ferrous sulfate 325 mg (65 mg 325 mg PO DAILY 12/12/23 12/12/23 History iron) tablet (FeroSul) gabapentin 800 mg tablet 800 mg PO TID 12/12/23 12/12/23 History hydroxyzine pamoate 25 mg capsule 25 mg PO TIDP PRN Anxiety 12/12/23 12/12/23 History lisinopril 40 mg tablet 40 mg PO DAILY 12/12/23 12/12/23 History nitroglycerin 0.4 mg sublingual 0.4 mg sublingual Q5MINP PRN chest 12/12/23 12/12/23 History tablet pain ondansetron HCl 4 mg tablet 4 mg PO Q8HP PRN Nausea And 12/12/23 12/12/23 History Vomiting pantoprazole 40 mg tablet,delayed 40 mg PO HS 12/12/23 12/12/23 History release quetiapine 50 mg tablet (Seroquel) 50 mg PO HS 12/12/23 12/12/23 History New Prescriptions to Start Prescriptions: Allergies Allergy/AdvReac Type Severity Reaction Status Date / Time ofloxacin [OFLOXACIN] Allergy Mild Verified 12/10/23 11:04 pregabalin [From LYRICA] Allergy Mild Verified 12/10/23 11:04 sulfamethoxazole Allergy Mild Verified 12/10/23 11:04 [From BACTRIM] trimethoprim [From BACTRIM] Allergy Mild Verified 12/10/23 11:04 Exam Data for Last 24 hours Vital signs and Labs for Last 24 Hours: Temp Pulse Resp BP Pulse Ox O2 Del Method 98.1 F 86 17 105/60 L 95 Room Air 12/12/23 13:50 12/12/23 13:50 12/12/23 13:50 12/12/23 13:50 12/12/23 13:50 12/12/23 13:50 Laboratory Results - last 24 hr 12/12/23 13:24: Activated Clotting Time 277 H* I & O for Last 24 hours: Intake & Output 12/09/23 12/10/23 12/11/23 12/12/23 23:59 23:59 23:59 23:59 Weight 84.822 kg Constitutional Constitutional: no acute distress, obese and cooperative *Routine HEENT Exam Head: Present normocephalic Eye: Present EOMI and PERRL ENT: Present mucous membranes moist *Routine Neck Exam Neck: Present supple; Absent lymphadenopathy *Routine Respiratory Exam Respiratory: Present CTA bilaterally *Routine Cardiovascular Exam Cardiovascular: Present RRR *Routine Abdominal Exam Abdominal: Present soft and normoactive bowel sounds; Absent tenderness *Routine Rectal Exam Rectal:: deferred *Routine Genitalia Exam Genitalia:: deferred *Routine Extremities Exam Extremities: Absent cyanosis, clubbing or edema Comments: Bilateral inguinal insertion sites clean dry and intact. *Routine Skin Exam Skin: Present warm; Absent rash *Routine Neurological Exam Neurological: Present alert, oriented X3 and moving all extremities; Absent altered mental status Routine Psychiatric Exam Psychiatric: Present normal affect and normal thought process Assessment and Plan *Assessment and plan (1) Claudication: Status: Acute Category: Medical Code(s): I73.9 - Peripheral vascular disease, unspecified (2) Diastolic dysfunction: Status: Acute Category: Medical Code(s): I51.89 - Other ill-defined heart diseases (3) Smoking greater than 40 pack years: Status: Acute Category: Social Hx Code(s): F17.210 - Nicotine dependence, cigarettes, uncomplicated (4) Anxiety: Status: Acute Category: Medical Code(s): F41.9 - Anxiety disorder, unspecified (5) Hypertension: Status: Chronic Qualifiers: Hypertension type: essential hypertension Qualified Code(s): I10 - Essential (primary) hypertension Category: Medical Code(s): I10 - Essential (primary) hypertension (6) Bipolar II disorder: Status: Acute Category: Medical Code(s): F31.81 - Bipolar II disorder Plan 58-year-old female who presented for outpatient angiography. Stenting to her iliacs with bilateral femoral access. Discussed case with cardiology, request admission for monitoring overnight. I agreed to admit for further management. Stable at time of arrival to the floor. PAD Lower extremity claudication Hyperlipidemia -Critical disease in her left common iliac artery in a concentric manner with mild to moderate disease in the right common iliac artery. Stents were placed. Also successful reconstruction of distal abdominal aorta and aortic iliac bifurcation. Will continue dual antiplatelet therapy for 1 month. - Hemoglobin normal at 12.4 on 12/05. Repeat CBC, CMP, magnesium ordered for the morning. -Kidney function normal with BUN 16, creatinine 1.1. -Can you asked the 1 mg daily, Lipitor 80 mg nightly, Plavix any 5 mg daily Hypertension: Continue home bisoprolol 10mg daily, lisinopril 40 mg daily GERD: Continue pantoprazole 40 mg nightly Tobacco use disorder: Nicotine patch 21 mg daily as needed Bipolar: Continue Seroquel 50 mL nightly Vraylar 1.5 mg daily, Wellbutrin 300 mg extended release daily Neuropathy: Continue gabapentin 800 mg 3 times a day Full code Cardiac diet Heparinized in [employer]
--- NOTE | 2023-12-12 14:57 | HMH.PHAINT1 ---
Pharmacy Intervention Comments: MEDICATION RECONCILIATION COMPLETED ON PATIENT USING EXTERNAL FILL HISTORY FROM PHARMACY AND LIST FROM CARDIOLOGY OFFICE. -GERALD BRISENO, EMILYD
--- NOTE | 2023-12-12 15:24 | PC.NURSE ---
pt arrived to floor via stretcher with shift lab technician staff
[2023-12-12] MEDS: ACETAMINOPHEN 325MG TAB 650 MG PO (18:30)
[2023-12-12] MEDS: BISOPROLOL 5MG TABLET 10 MG PO (20:10)
[2023-12-12] MEDS: ATORVASTATIN 40MG TABLET 80 MG PO (20:10)
[2023-12-12] MEDS: PANTOPRAZOLE 40MG TABLET 40 MG PO (20:11)
[2023-12-12] MEDS: CLOPIDOGREL 75MG TAB 75 MG PO (20:11)
[2023-12-12] MEDS: buPROPion HCl SR 150MG TAB 150 MG PO (20:11)
[2023-12-12] MEDS: PAT OWN MED ***VRAYLAR 1.5 MG 1.5 EACH PO (20:11)
[2023-12-12] MEDS: GABAPENTIN 800MG TABLET 800 MG PO (20:11)
[2023-12-12] MEDS: QUETIAPINE 25MG TABLET 50 MG PO (20:12)
[2023-12-13] VITALS: BP 104/47; PULSE 70; PULSE 75; RESP 16; TEMP 36.7; O2SAT 96
[2023-12-13] MEDS: ACETAMINOPHEN 325MG TAB 650 MG PO (00:30)
[2023-12-13 04:00] VITALS: BP 114/64; PULSE 67; PULSE 70; RESP 16; TEMP 36.6; O2SAT 95; BMI 31.4
--- NOTE | 2023-12-13 05:18 | PC.NURSE ---
Patient is alert and oriented x4. Patient has rested in bed for the majority of the night. Patient had a heart cath procedure yesterday (12/12/23); cath sites are left femoral and right femoral arteries. Gauze and tegaderm are dressed to each site. No bleeding, drainage, or abnormal temperature change has been observed from the sites thus far this shift. Pulses +2. Patient was kept flat on her back since procedure until 20:30 and was raised 15 degrees each 15 minute interval until sitting at 21:30. At around 21:30, the patient requested to have her purewick removed due to having trouble voiding and wanted to attempt to use the toilet. Patient ambulated with x1 assistance and tolerated ambulation well. Subtle unsteadiness was noted. Patient was able to void without difficulty. Post-angio assessment was completed at 22:30. Patient complained of pain down her left leg (not near site) once this shift; she was given Tylenol per MAR and reported relief. Patient does not have any further complaints at this time. She has remained normal sinus rhythm on telemetry. Call light within reach.
[2023-12-13 06:55] LABS: Basophils # 0.1 K/mm3 (0-0.2); Basophils % 1.3 % (0.1-2.0); Eosinophils # 0.3 K/mm3 (0.0-0.4); Eosinophils % 4.4 % (0.1-12.0); Hematocrit 35.9 % (37.0-47.0); Hemoglobin 11.3 g/dL (12.2-16.2); Lymphocytes # 2.7 K/mm3 (0.7-4.5); Lymphocytes % 37.4 % (10-50); Mean Corpuscular HGB Conc 31.4 g/dL (31.8-35.4); Mean Corpuscular Hemoglobin 27.7 pg (27.0-31.2); Mean Corpuscular Volume 88.3 fl (81-99); Mean Platelet Volume 7.6 fl (7.4-10.4); Monocytes # 0.5 K/mm3 (0.1-1.0); Monocytes % 6.3 % (1.7-9.3); Neutrophils # 3.7 K/mm3 (1.8-7.8); Neutrophils % 50.6 % (37.0-80.0); Platelet Count 333 K/mm3 (142-424); Red Blood Count 4.06 M/mm3 (4.20-5.40); Red Cell Distribution Width 14.7 % (11.5-17.5); White Blood Count 7.3 K/mm3 (4.8-10.8)
[2023-12-13 07:04] LABS: Chloride 107 mmol/L (98-107); Sodium 137 mmol/L (136-145)
[2023-12-13 07:05] LABS: Potassium 4.1 mmoL/L (3.5-5.1)
[2023-12-13 07:08] LABS: Anion Gap 10.1 mEq/L (5-15); Blood Urea Nitrogen 11 mg/dl (7-17); Calcium 8.6 mg/dl (8.4-10.2); Carbon Dioxide 24 mmol/L (22.0-30.0); Creatinine Clearance Estimated 91 mL/min (50-200); Estimated Glomerular Filt Rate 64 ml/min (>60); GFR (African American) 78 ML/MIN (>60); Glucose 123 mg/dl (74-100)
--- NOTE | 2023-12-13 07:46 | EXP.DC.SUM ---
General Admission date:: 12/12/23 Discharge date: 12/13/23 HPI HPI HPI: 58-year-old female who presented for elective outpatient angiography. Patient had history of [place] claudication class III/IV along with atherosclerotic plaques in the bilateral common iliac arteries. Brought in for elective lower extremity angiography. Had significant disease required stenting of aorta and iliacs. Had bilateral femoral approaches. 6 Pashto sheaths were used. Due to necessity to lay flat for extended period and achieve hemostasis by hand, cardiology requested monitoring overnight due to risk of bleeding and need for serial labs and monitoring of insertion sites. Patient denies any chest pain or shortness of breath upon arrival to the floor. Overall feels well. Addition patient cyst of the attention, bipolar, GERD. Hospital Course Hospital Course Hospital Course: 58-year-old female who presented for outpatient angiography. Stenting to her iliacs with bilateral femoral access. Discussed case with cardiology, request admission for monitoring overnight. I agreed to admit for further management. Stable at time of arrival to the floor. No events overnight. Plan to discharge home with close follow-up with cardiology. Problems addressed as follows: PAD Lower extremity claudication Hyperlipidemia -Critical disease in her left common iliac artery in a concentric manner with mild to moderate disease in the right common iliac artery. Stents were placed. Also successful reconstruction of distal abdominal aorta and aortic iliac bifurcation. Will continue dual antiplatelet therapy for 1 month. Monitored overnight. Hemoglobin remained stable. Kidney function remained normal. Plan to continue aspirin 81 mg daily and Plavix 75 mg daily for 1 month. Continue Lipitor 80 mg nightly. Stable to discharge home with close follow-up with cardiology. Sheath/insertion sites stable on morning of discharge. Hypertension: Continue home bisoprolol 10mg daily, lisinopril 40 mg daily GERD: Continue pantoprazole 40 mg nightly Tobacco use disorder: Nicotine patch 21 mg daily as needed Bipolar: Continue Seroquel 50 mL nightly Vraylar 1.5 mg daily, Wellbutrin 300 mg extended release daily Neuropathy: Continue gabapentin 800 mg 3 times a day Exam Data for Last 24 hours Vital signs and Labs for Last 24 Hours: Temp Pulse Resp BP Pulse Ox O2 Del Method 97.9 F 67 16 114/64 95 Room Air 12/13/23 04:00 12/13/23 04:00 12/13/23 04:00 12/13/23 04:00 12/13/23 04:00 12/13/23 06:35 Laboratory Results - last 24 hr 12/12/23 13:24: Activated Clotting Time 277 H* 12/13/23 05:25: WBC 7.3, RBC 4.06 L, Hgb 11.3 L, Hct 35.9 L, MCV 88.3, MCH 27.7, MCHC 31.4 L, RDW 14.7, Plt Count 333, MPV 7.6, Neut % (Auto) 50.6, Lymph % (Auto) 37.4, [place] % (Auto) 6.3, Eos % (Auto) 4.4, Baso % (Auto) 1.3, Neut # (Auto) 3.7, Lymph # (Auto) 2.7, [place] # (Auto) 0.5, Eos # (Auto) 0.3, Baso # (Auto) 0.1, Sodium 137, Potassium 4.1, Chloride 107, Carbon Dioxide 24, Anion Gap 10.1, BUN 11, Creatinine 0.90, Estimated Creat Clear 91, Estimated GFR 64, Est GFR ( Amer) 78, Glucose 123 H, Calcium 8.6 I & O for Last 24 hours: Intake & Output 12/10/23 12/11/23 12/12/23 12/13/23 23:59 23:59 23:59 23:59 Intake Total 111 / 231 120 / 120 Output Total 0 / 0 Balance 111 / 231 120 / 120 Weight 84.822 kg 85.684 kg Constitutional Constitutional: no acute distress, obese and cooperative *Routine HEENT Exam Head: Present normocephalic Eye: Present EOMI and PERRL ENT: Present mucous membranes moist *Routine Neck Exam Neck: Present supple; Absent lymphadenopathy *Routine Respiratory Exam Respiratory: Present CTA bilaterally; Absent rhonchi, wheezes or crackles *Routine Cardiovascular Exam Cardiovascular: Present RRR *Routine Abdominal Exam Abdominal: Present soft and normoactive bowel sounds; Absent tenderness *Routine Rectal Exam Patient deferred: visual exam *Routine Exam Comments: Bilateral femoral access points clean dry and intact. No hematoma or blood on bandages. *Routine Extremities Exam Extremities: Absent cyanosis, clubbing or edema *Routine Skin Exam Skin: Present warm; Absent rash *Routine Neurological Exam Neurological: Present alert, oriented X3 and moving all extremities; Absent altered mental status Results Data Completed and Pending Labs on day of discharge: Labs from last 24 hours 12/13/23 12/12/23 05:25 13:24 WBC 7.3 RBC 4.06 L Hgb 11.3 L Hct 35.9 L MCV 88.3 MCH 27.7 MCHC 31.4 L RDW 14.7 Plt Count 333 MPV 7.6 Neut % (Auto) 50.6 Lymph % (Auto) 37.4 [place] % (Auto) 6.3 Eos % (Auto) 4.4 Baso % (Auto) 1.3 Neut # (Auto) 3.7 Lymph # (Auto) 2.7 [place] # (Auto) 0.5 Eos # (Auto) 0.3 Baso # (Auto) 0.1 Activated Clotting Time 277 H* Sodium 137 Potassium 4.1 Chloride 107 Carbon Dioxide 24 Anion Gap 10.1 BUN 11 Creatinine 0.90 Estimated Creat Clear 91 Estimated GFR 64 Est GFR ( Amer) 78 Glucose 123 H Calcium 8.6 DS: Diagnosis Discharge Diagnosis (1) Claudication: Status: Acute Code(s): I73.9 - Peripheral vascular disease, unspecified (2) Diastolic dysfunction: Status: Acute Code(s): I51.89 - Other ill-defined heart diseases (3) Smoking greater than 40 pack years: Status: Acute Code(s): F17.210 - Nicotine dependence, cigarettes, uncomplicated (4) Anxiety: Status: Acute Code(s): F41.9 - Anxiety disorder, unspecified (5) Hypertension: Status: Chronic Code(s): I10 - Essential (primary) hypertension Qualifiers: Hypertension type: essential hypertension Qualified Code(s): I10 - Essential (primary) hypertension (6) Bipolar II disorder: Status: Acute Code(s): F31.81 - Bipolar II disorder Meds Home Medications and Allergies Home Medications ?Medication ?Instructions ?Recorded ?Confirmed ?Type aspirin 81 mg tablet,delayed 81 mg PO DAILY 03/09/19 12/12/23 History release fluticasone furoate 100 1 inh inhalation DAILY #60 ea 09/04/23 12/12/23 Rx mcg-vilanterol 25 mcg/dose inhalation powder (Breo Ellipta) atorvastatin 80 mg tablet (Lipitor) 80 mg PO HS #30 tabs 11/10/23 12/12/23 Rx bisoprolol fumarate 10 mg tablet 10 mg PO DAILY #90 tabs 11/14/23 12/12/23 Rx bupropion HCl 300 mg 24 hr tablet, 300 mg PO DAILY #90 tabs 11/28/23 12/12/23 Rx extended release cariprazine 1.5 mg capsule 1.5 mg PO DAILY #90 caps 11/28/23 12/12/23 Rx (Vraylar) inclisiran 284 mg/1.5 mL 284 mg (1.5 mL) SQ [id number] 2 12/10/23 12/12/23 Rx subcutaneous syringe (Leqvio) doses #1.5 mL albuterol sulfate 90 mcg/actuation 2 puff inhalation Q4HP PRN 12/12/23 12/12/23 History aerosol inhaler shortness of breath or wheezing clopidogrel 75 mg tablet 75 mg PO DAILY 12/12/23 12/12/23 History ferrous sulfate 325 mg (65 mg 325 mg PO DAILY 12/12/23 12/12/23 History iron) tablet (FeroSul) gabapentin 800 mg tablet 800 mg PO TID 12/12/23 12/12/23 History hydroxyzine pamoate 25 mg capsule 25 mg PO TIDP PRN Anxiety 12/12/23 12/12/23 History lisinopril 40 mg tablet 40 mg PO DAILY 12/12/23 12/12/23 History nitroglycerin 0.4 mg sublingual 0.4 mg sublingual Q5MINP PRN chest 12/12/23 12/12/23 History tablet pain ondansetron HCl 4 mg tablet 4 mg PO Q8HP PRN Nausea And 12/12/23 12/12/23 History Vomiting pantoprazole 40 mg tablet,delayed 40 mg PO HS 12/12/23 12/12/23 History release quetiapine 50 mg tablet (Seroquel) 50 mg PO HS 12/12/23 12/12/23 History nicotine 21 mg/24 hr daily 21 mg transdermal DAILYP PRN 12/13/23 Rx transdermal patch Nicotine Cravings 30 days #30 ea New Prescriptions to Start Prescriptions: Deniz Li Allergies Allergy/AdvReac Type Severity Reaction Status Date / Time ofloxacin [OFLOXACIN] Allergy Mild Verified 12/10/23 11:04 pregabalin [From LYRICA] Allergy Mild Verified 12/10/23 11:04 sulfamethoxazole Allergy Mild Verified 12/10/23 11:04 [From BACTRIM] trimethoprim [From BACTRIM] Allergy Mild Verified 12/10/23 11:04 Discharge Plan Disposition Patient Disposition: Home, Self-Care Condition: Good Follow up Plan Follow up with: Jerson iWld APRN [Primary Care Provider] - 12/19/23 3:00 pm José Miguel Hoover MD [Staff Physician] - 12/26/23 2:00 pm Prescriptions/Medication Reconciliation: New nicotine 21 mg/24 hr Patch 24 Hour 21 mg transdermal DAILYP PRN (Reason: Nicotine Cravings) 30 Days Qty: 30 0RF Continued fluticasone furoate-vilanterol [Breo Ellipta] 100-25 mcg/dose blister with device 1 inh inhalation DAILY Qty: 60 2RF bisoprolol fumarate 10 mg tablet 10 mg PO DAILY Qty: 90 2RF aspirin 81 mg tablet,delayed release (DR/EC) 81 mg PO DAILY bupropion HCl 300 mg tablet extended release 24 hr 300 mg PO DAILY Qty: 90 0RF Vraylar 1.5 mg capsule 1.5 mg PO DAILY Qty: 90 1RF Leqvio 284 mg/1.5 mL syringe 284 mg SQ [id number] Qty: 1.5 2RF Rx Instructions: adminster initial dose, then a second dose at 3 months atorvastatin [Lipitor] 80 mg tablet 80 mg PO HS Qty: 30 2RF ondansetron HCl 4 mg tablet 4 mg PO Q8HP PRN (Reason: Nausea And Vomiting) clopidogrel 75 mg tablet 75 mg PO DAILY gabapentin 800 mg tablet 800 mg PO TID pantoprazole 40 mg tablet,delayed release (DR/EC) 40 mg PO HS ferrous sulfate [FeroSul] 325 mg (65 mg iron) tablet 325 mg PO DAILY nitroglycerin 0.4 mg tablet, sublingual 0.4 mg SUBLINGUAL Q5MINP PRN (Reason: chest pain) Rx Instructions: until response; do not exceed 3 doses per episode albuterol sulfate 90 mcg/actuation HFA aerosol inhaler 2 puff inhalation Q4HP PRN (Reason: shortness of breath or wheezing) lisinopril 40 mg tablet 40 mg PO DAILY hydroxyzine pamoate 25 mg capsule 25 mg PO TIDP PRN (Reason: Anxiety) quetiapine [Seroquel] 50 mg tablet 50 mg PO HS Problem Reconciliation Problems Reviewed?: Yes Patient Discharge Instructions ACTIVITY: Continue current activity DIET: continue same diet Patient Instructions: DI for Cardiac Catheterization, DI for Peripheral Vascular (Arterial) Disease, DI for Surgical Site Infection, DI for Moderate Sedation Print Language: Grenadian Providers Primary Care Provider: Jerson Wild Admit Provider: Deniz Cornejo Attending Provider: Deniz Cornejo
[2023-12-13 07:57] VITALS: BP 146/78; PULSE 87; RESP 22; TEMP 36.3; O2SAT 98
[2023-12-13 08:00] VITALS: PULSE 80
--- NOTE | 2023-12-13 08:01 | P.PN_ITS ---
Subjective Subjective Date: 12/13/23 Time: 08:01 Principal diagnosis: PAD status post bilateral common iliac stenting Interval history: 58-year-old white female in bed in no acute distress. She was kept overnight after bilateral common iliac stenting yesterday using 6 Romanian sheaths. Hemoglobin this morning is only down 1 point to 11.3 with BUN and creatinine normal. Patient denies any abdominal pain. She does notice slight numbness in her left ann area and in the left foot which has improved throughout the morning. The femoral access sites look good. No abdominal discomfort noted. Exam Data for Last 24 hours Vital signs and Labs for Last 24 Hours: Temp Pulse Resp BP Pulse Ox O2 Del Method 97.4 F L 87 22 146/78 H 98 Room Air 12/13/23 07:57 12/13/23 07:57 12/13/23 07:57 12/13/23 07:57 12/13/23 07:57 12/13/23 07:57 Laboratory Results - last 24 hr 12/12/23 13:24: Activated Clotting Time 277 H* 12/13/23 05:25: WBC 7.3, RBC 4.06 L, Hgb 11.3 L, Hct 35.9 L, MCV 88.3, MCH 27.7, MCHC 31.4 L, RDW 14.7, Plt Count 333, MPV 7.6, Neut % (Auto) 50.6, Lymph % (Auto) 37.4, [place] % (Auto) 6.3, Eos % (Auto) 4.4, Baso % (Auto) 1.3, Neut # (Auto) 3.7, Lymph # (Auto) 2.7, [place] # (Auto) 0.5, Eos # (Auto) 0.3, Baso # (Auto) 0.1, Sodium 137, Potassium 4.1, Chloride 107, Carbon Dioxide 24, Anion Gap 10.1, BUN 11, Creatinine 0.90, Estimated Creat Clear 91, Estimated GFR 64, Est GFR ( Amer) 78, Glucose 123 H, Calcium 8.6 I & O for Last 24 hours: Intake & Output 12/10/23 12/11/23 12/12/23 12/13/23 11:59 11:59 11:59 11:59 Intake Total 0 / 0 231 / 231 Output Total 0 / 0 0 / 0 Balance 0 / 0 231 / 231 Weight 187 lb 188 lb 14.4 oz Constitutional Constitutional: no acute distress *Routine Respiratory Exam Respiratory: Present CTA bilaterally *Routine Cardiovascular Exam Cardiovascular: Present RRR *Routine Extremities Exam Extremities: Absent edema Progress Note: A&P Assessment and plan (1) Claudication: Status: Acute (2) Diastolic dysfunction: Status: Acute (3) Smoking greater than 40 pack years: Status: Acute (4) Anxiety: Status: Acute (5) Hypertension: Status: Chronic (6) Bipolar II disorder: Status: Acute Assessment and Plan Assessment and Plan for All Diagnoses:: 1. PAD status post bilateral common iliac stenting. Continue DAPT therapy with aspirin and Plavix and then 1 month consider stopping aspirin and switching to Plavix with low-dose Xarelto for PAD. 2. CAD status post LAD and RCA stenting earlier this month. Continue DAPT therapy with aspirin and Plavix 3. Hyperlipidemia, continue statin therapy 4. History of bipolar disorder 5. Hypertension, continue lisinopril and bisoprolol Stable from a cardiac standpoint for discharge home. Follow-up in 1 week. Home medication recommendations: Aspirin 81 mg daily Plavix 75 mg daily Atorvastatin 80 mg daily Bisoprolol 10 mg daily Lisinopril 40 mg daily
[2023-12-13] MEDS: GABAPENTIN 800MG TABLET 800 MG PO (08:38)
[2023-12-13] MEDS: LISINOPRIL 20MG TABLET 40 MG PO (08:38)
[2023-12-13] MEDS: buPROPion HCl SR 150MG TAB 150 MG PO (08:38)
[2023-12-13] MEDS: ASPIRIN EC 81MG TABLET 81 MG PO (08:40)
--- NOTE | 2023-12-16 15:30 | CARE MANAGER ---
Patient called back and stated she is doing well. She denies questions or concerns and has new medications. EITAN Doan
== END 2023-12-13 10:45 | disposition home or self-care (01) ==
LOC: 2ND 14:31
PROVIDERS: Internal Medicine; Admitting Provider Internal Medicine Adolescent Medicine; PCP Nurse Practitioner Family; Visit Provider Internal Medicine Adolescent Medicine
DX: I70.213 Atherosclerosis of native arteries of extremities with intermittent claudication, bilateral legs (principal); F17.290 Nicotine dependence, other tobacco product, uncomplicated; F41.9 Anxiety disorder, unspecified; F31.81 Bipolar II disorder; E78.5 Hyperlipidemia, unspecified; I10 Essential (primary) hypertension; K21.9 Gastro-esophageal reflux disease without esophagitis; G62.9 Polyneuropathy, unspecified; Z79.899 Other long term (current) drug therapy; Z95.820 Peripheral vascular angioplasty status with implants and grafts; I70.1 Atherosclerosis of renal artery; I15.0 Renovascular hypertension; I77.1 Stricture of artery
CPT/HCPCS: 36252; 36415; 37221; 80048; 85025; 85347; 99152; 99153; C1725; C1769; C1876; C1894; G0378; J1200; J1644; J2250; J2720; J3010; Q9966

== ENCOUNTER 2023-12-17 09:42 | Outpatient (CLI) | payer MEDICAID, SELFPAY ==
[2023-12-17 10:11] LABS: Basophils # 0.1 K/mm3 (0-0.2); Basophils % 1.7 % (0.1-2.0); Eosinophils # 0.4 K/mm3 (0.0-0.4); Eosinophils % 4.8 % (0.1-12.0); Hematocrit 36.2 % (37.0-47.0); Hemoglobin 11.3 g/dL (12.2-16.2); Lymphocytes # 2.7 K/mm3 (0.7-4.5); Lymphocytes % 34.5 % (10-50); Mean Corpuscular HGB Conc 31.3 g/dL (31.8-35.4); Mean Corpuscular Hemoglobin 27.8 pg (27.0-31.2); Mean Corpuscular Volume 88.8 fl (81-99); Mean Platelet Volume 7.2 fl (7.4-10.4); Monocytes # 0.6 K/mm3 (0.1-1.0); Monocytes % 7.1 % (1.7-9.3); Neutrophils # 4.1 K/mm3 (1.8-7.8); Neutrophils % 51.9 % (37.0-80.0); Platelet Count 356 K/mm3 (142-424); Red Blood Count 4.07 M/mm3 (4.20-5.40); White Blood Count 7.9 K/mm3 (4.8-10.8)
[2023-12-17 10:32] LABS: Chloride 108 mmol/L (98-107)
[2023-12-17 10:33] LABS: Potassium 4.1 mmoL/L (3.5-5.1); Sodium 141 mmol/L (136-145)
[2023-12-17 10:36] LABS: Anion Gap 12.1 mEq/L (5-15); Blood Urea Nitrogen 11 mg/dl (7-17); Calcium 9.2 mg/dl (8.4-10.2); Carbon Dioxide 25 mmol/L (22.0-30.0); Estimated Glomerular Filt Rate 57 ml/min (>60); GFR (African American) 69 ML/MIN (>60); Glucose 132 mg/dl (74-100)
== END 2023-12-17 23:59 | disposition home or self-care (01) ==
LOC: LAB 09:43
PROVIDERS: PCP Nurse Practitioner Family; Visit Provider Internal Medicine
DX: I25.10 Atherosclerotic heart disease of native coronary artery without angina pectoris (principal); F17.200 Nicotine dependence, unspecified, uncomplicated; I11.9 Hypertensive heart disease without heart failure
CPT/HCPCS: 36415; 80048; 85025

== ENCOUNTER 2024-03-11 12:36 | Outpatient (CLI) | payer MEDICAID, SELFPAY ==
--- NOTE | 2024-03-11 12:41 | XR_ITS ---
FINAL REPORT CLINICAL HISTORY: iron deficiency anemia secondary to blood loss COMPARISON: 01/21/2023 FINDINGS: SINGLE VIEW ABDOMEN A single view of the abdomen was obtained. There is a nonobstructive bowel gas pattern. There is a moderate amount of retained stool. No abnormal calcifications are identified. Postoperative changes are seen in the right abdomen. There is moderate degenerative change of the spine. IMPRESSION: Nonobstructive bowel gas pattern with a moderate stool burden. Reviewed, Interpreted and Dictated by Viet Domingo III, MD Transcribed by Blanche Sherman Authenticated and [facility]
== END 2024-03-11 23:59 | disposition home or self-care (01) ==
LOC: RAD 12:37
PROVIDERS: PCP Nurse Practitioner Family
DX: D50.0 Iron deficiency anemia secondary to blood loss (chronic) (principal); D64.9 Anemia, unspecified
CPT/HCPCS: 74018

== ENCOUNTER 2024-03-19 14:08 | Outpatient (CLI) | payer MEDICAID, SELFPAY ==
[2024-03-19 14:27] LABS: Basophils # 0.1 K/mm3 (0-0.2); Basophils % 1.4 % (0.1-2.0); Eosinophils # 0.3 K/mm3 (0.0-0.4); Eosinophils % 3.5 % (0.1-12.0); Hematocrit 37.9 % (37.0-47.0); Hemoglobin 12.9 g/dL (12.2-16.2); Lymphocytes # 3.3 K/mm3 (0.7-4.5); Lymphocytes % 41.5 % (10-50); Mean Corpuscular HGB Conc 34.1 g/dL (31.8-35.4); Mean Corpuscular Hemoglobin 29.1 pg (27.0-31.2); Mean Corpuscular Volume 85.3 fl (81-99); Mean Platelet Volume 7.5 fl (7.4-10.4); Monocytes # 0.4 K/mm3 (0.1-1.0); Monocytes % 4.4 % (1.7-9.3); Neutrophils # 3.9 K/mm3 (1.8-7.8); Neutrophils % 49.2 % (37.0-80.0); Platelet Count 271 K/mm3 (142-424); Red Blood Count 4.45 M/mm3 (4.20-5.40); Red Cell Distribution Width 14.3 % (11.5-17.5); White Blood Count 7.9 K/mm3 (4.8-10.8)
[2024-03-19 15:17] LABS: Alanine Aminotransferase 30 U/L (12-78); Albumin Level 4.3 g/dl (3.5-5.0); Alkaline Phosphatase 91 U/L (38-126); Aspartate Amino Transferase 35 U/L (14-36); Bilirubin,Direct 0.4 mg/dl (0.0-0.4); Bilirubin,Indirect 0.1 mg/dL (0.0-0.9); Bilirubin,Total 0.5 mg/dl (0.2-1.3); Bilirubin,Unconjugated 0.1 mg/dL (0.0-1.1); Blood Urea Nitrogen 11 mg/dl (7-17); Calcium 9.4 mg/dl (8.4-10.2); Carbon Dioxide 25 mmol/L (22.0-30.0); Chloride 104 mmol/L (98-107); Chol/HDL Ratio 5.3 (1-3.5); Cholesterol 208 mg/dl (140-200); Estimated Glomerular Filt Rate 57 ml/min (>60); GFR (African American) 69 ML/MIN (>60); Glucose 209 mg/dl (74-100); HDL Cholesterol 39 mg/dl (40-60); Sodium 139 mmol/L (136-145); Total Protein,Serum 7.4 g/dl (6.3-8.2)
[2024-03-19 15:30] LABS: Triglycerides 605 mg/dl (30-150)
[2024-03-19 15:33] LABS: Free T4 (Free Thyroxine) 0.94 ng/dl (0.78-2.19)
[2024-03-19 15:48] LABS: Thyroid Stimulating Hormone 1.26 uIU/mL (0.465-4.68)
[2024-03-19 16:40] LABS: Anion Gap 14.2 mEq/L (5-15); Potassium 4.2 mmoL/L (3.5-5.1)
[2024-03-19 16:43] LABS: Iron 77 ug/dL (37-170)
[2024-03-19 16:52] LABS: Total Iron Binding Capacity 308 ug/dL (265-497)
[2024-03-19 17:18] LABS: Ferritin 118 ng/ml (11.1-264)
== END 2024-03-19 23:59 | disposition home or self-care (01) ==
LOC: LAB 14:09
PROVIDERS: PCP Nurse Practitioner Family; Visit Provider Physician Assistant
DX: I73.9 Peripheral vascular disease, unspecified (principal); I51.89 Other ill-defined heart diseases; I25.10 Atherosclerotic heart disease of native coronary artery without angina pectoris; E78.5 Hyperlipidemia, unspecified; I10 Essential (primary) hypertension; I65.23 Occlusion and stenosis of bilateral carotid arteries; E55.9 Vitamin D deficiency, unspecified
CPT/HCPCS: 36415; 80048; 80061; 80076; 82728; 82746; 83540; 83550; 84439; 84443; 85025

== ENCOUNTER → 2024-04-17 09:09 | Outpatient (CLI) | payer MEDICAID, SELFPAY | LOC: SL 09:10 | PROVIDERS: PCP Specialist; Visit Provider Specialist | DX: G47.33 Obstructive sleep apnea (adult) (pediatric) (principal); I10 Essential (primary) hypertension; Z68.32 Body mass index [BMI] 32.0-32.9, adult; R06.83 Snoring | CPT/HCPCS: G0399 ==

== ENCOUNTER 2024-04-27 13:07 | Outpatient (CLI) | payer MEDICAID, SELFPAY ==
--- NOTE | 2024-04-27 13:10 | XR_ITS ---
FINAL REPORT CLINICAL HISTORY: right shoulder pain COMPARISON: None FINDINGS: 3 views of the right shoulder were obtained. There is no fracture or dislocation. Mild degenerative joint disease is present. Soft tissues are unremarkable. IMPRESSION: Mild degenerative joint disease with no acute osseous abnormality of the right shoulder. Reviewed, Interpreted and Dictated by Mackenzie Rebollar MD Transcribed by Marcia Elizalde Authenticated and [facility]
== END 2024-04-27 23:59 | disposition home or self-care (01) ==
LOC: RAD 13:08
PROVIDERS: PCP Nurse Practitioner Family; Visit Provider Family Medicine
DX: M25.511 Pain in right shoulder (principal); M25.611 Stiffness of right shoulder, not elsewhere classified; R29.898 Other symptoms and signs involving the musculoskeletal system
CPT/HCPCS: 73030

== ENCOUNTER 2024-04-27 13:38 | Outpatient (RCR) | payer MEDICAID, SELFPAY ==
--- NOTE | 2024-04-27 15:01 | HMH.PTOPEV ---
PT Outpatient Evaluation Rehab PT Outpatient Evaluation Start: 04/27/24 13:56 Freq: Status: Active Protocol: Document 04/27/24 13:57 MICHELLE (Rec: 04/27/24 15:00 MICHELLE [id number]) E-signed By Caitlin Gonzalez, PT Outpatient Therapy Subjective History Subjective History Pt is a 58 y/o female who reports insidious onset of R shoulder pain ~1.5 months ago. Pt denies known trauma or injury. Pt reports anterior shoulder pain that has gradually worsened overtime. Pt denies swelling, clicking/ popping/catching, or numbness/ tingling. Pt reports pain is aggravated by household care, lifting her arm overhead, lifting groceries, reaching behind her and washing her hair. Pt also reports pain with rolling onto the right shoulder that wakes her up at night. Medical History: GERD ( gastroesophageal reflux disease), Colon cancer screening, PAD (peripheral artery disease), Encounter for colonoscopy due to history of adenomatous colonic polyps, Acute drug withdrawal syndrome , Edema, Diastolic dysfunction , Claudication, History of heart attack, CARLA (obstructive sleep apnea), Abnormal renal ultrasound, Tachycardia, Renal artery stenosis, Bipolar II disorder, Dyspnea, Carotid artery stenosis, Pulmonary nodules, Carotid artery disease, HHD (hypertensive heart disease), Vitamin D deficiency (~09/03/17), Hyperlipidemia (~09/03/17) New diagnosis of cancer in past 12 No months? Chief Complaint Pain Symptom Type Ache,Sharp Symptoms Relieved By OTC Meds Symptoms Aggravated By Physical Activity,Lifting Current Functional Limitations Reaching,Lifting,Housework, Dressing,Sleeping,Recreation Activity Symptom Description Intermittent Level of pain today (0-10) 4 Pain scale - at its best (0-10) 0 Pain scale - at its worst (0-10) 10 Shoulder/Elbow Eval Shoulder Objective Measurements Palpation Tenderness tenderness shoulder exam standard right Shoulder Palpation Findings Tenderness Shoulder Palpation Overall Comment 3/4 TTP of AC joint, greater tuberosity Posture Shoulder Posture Sitting Position (L) Rounded,(R) Rounded,(L) Forward,(R) Forward,(L) Elevated,(R) Elevated Shoulder Posture Standing Position (L) Rounded,(R) Rounded,(L) Forward,(R) Forward,(L) Elevated,(R) Elevated Shoulder ROM Right Shoulder Abduction Active Range of 95 Motion (degrees) Shoulder Flexion Active Range of Motion 120 (degrees) Query Text: Shoulder External Rotation Active Range 40 of Motion (degrees) Shoulder Internal Rotation Active Range 75 of Motion (degrees) pain with active ROM shoulder exam right standard pain with passive ROM shoulder exam right standard decreased ROM shoulder exam standard right Shoulder MMT Shoulder Abduction Strength Grade 4- Good- Shoulder Extension Strength Grade 4 Good Shoulder Flexion Strength Grade 4 Good Shoulder External Rotation Strength 4 Good Grade Shoulder Internal Rotation Strength 4- Good- Grade Shoulder Special Tests impingement sign present shoulder exam right standard Shoulder Drop Arm Test Negative Right Shoulder Cross-Over Impingement Test Positive Right Acromioclavicular Joint Compression Test Positive Right Shoulder Empty Can (Supraspinatus) Test Positive Right Shoulder Tucker-Gael Impingement Positive Right Test Elbow Objective Measurements QuickDASH Activities Please rate your ability to do the following activities in the last week by selecting the number below the appropriate response. 1. Open a tight or new jar. Moderate difficulty 2. Do heavy private household worker (e.g., wash Severe difficulty bustos, floors). 3. Carry a shopping bag or briefcase. Moderate difficulty 4. Wash your back. Unable 5. Use a knife to cut food. Moderate difficulty 6. Recreational activities in which you Severe difficulty take some force or impact through your arm, shoulder, or hand (e.g., golf, hammering, tennis, etc.). 7. During the past week, to what extent Quite a bit has your arm, shoulder or hand problem interfered with your normal social activities with family, friends, neighbors or groups? 8. During the past week, were you Moderately limited limited in your work or other regular daily activites as a result of your arm, shoulder or hand problem? 9. Arm, shoulder or hand pain. Severe 10. Tingling (pins and needles) in your None arm, shoulder or hand. 11. During the past week, how much Moderate difficulty difficulty have you had sleeping because of the pain in your arm, shoulder or hand? Quick DASH 37 Outpatient Therapy Assessment Impairments Problems/Impairmments Palpation Tenderness,Impaired Range of Motion,Impaired Strength,Impaired Lifting, Impaired Dressing,Impaired Shower/Bathing,Impaired Household Care,Impaired Recreational Activities, Subjective C/O Pain,Impaired Self Care/Self Management Prognosis Rehab Potential Good Clinical Impression Consistent with Diagnosis Yes Short Term Goals Number of Weeks 3 Increase Range of Motion Yes: Improve R shoulder elevation by at least 10 degrees each plane Increase Strength Yes: R shoulder abduction/IR to at least 4/5 grossly to assist with function Decrease Subjective C/O Pain Yes: Improve pain at worst to 8/10 to improve overall QOL Improve Self Care/Self Management Yes Patient to be Ind w/ HEP Yes Prison Goals Number of Weeks 6 Decreased Palpation Tenderness Yes: 0-1/4 TTP of AC joint Increase Range of Motion Yes: Improve R shoulder elevation to at least 160, ER to at least 70 Increase Strength Yes: Improve RUE MMT to 4+/5 grossly to assist with function Improve Ability to Dress Self Yes: report ability to don jacket with pain 6/10 or less Improve Ability to Shower/Bathe Self Yes: report ability to wash hair with pain 6/10 or less Improve Quick Dash Score Yes: Improve score to 32 or less to improve overall QOL Decrease Subjective C/O Pain Yes: Improve pain at worst to 6/10 to improve overall QOL Outpatient Therapy Plan of Care Treatment Plan May Include Therapeutic Exercise Including Home Yes Exercise Program Manual Therapy Techniques Yes Neuromuscular Re-education Yes Therapeutic Activities to Return to Yes Previous Functional/Work Level ADL/Self Care Education Yes Dry Needling Yes Thermal Modalities Yes Electrical Stimulation Yes Ultrasound/Phonophoresis Yes Iontophoresis Yes Vasopneumatic Compression Pump Yes Massage Yes Eval/Re-Eval Yes Frequency Times per week 2 Duration Number of Weeks 4-6 Addendums This patient is a candidate for social No or vocational rehab? Patient/Guardian verbally acknowledges Yes understanding of treatment program and consents to further treatment? Patient/Guardian verbally acknowledges Yes understanding of diagnosis, prognosis and goals for treatment? Eval Complexity PT Charges 98583 - Moderate Complexity PHYSICIAN CERTIFICATION: I certify the specified therapy services for Fanny Vincent are required, authorized, and reviewed every 30 days.
== END 2024-04-27 23:59 | disposition home or self-care (01) ==
LOC: PT 13:38
PROVIDERS: Visit Provider Family Medicine
DX: M25.511 Pain in right shoulder (principal); M25.611 Stiffness of right shoulder, not elsewhere classified; R29.898 Other symptoms and signs involving the musculoskeletal system
CPT/HCPCS: 97163

== ENCOUNTER 2024-05-28 13:00 | Outpatient (RCR) | payer MEDICAID, SELFPAY ==
--- NOTE | 2024-05-28 14:58 | HMH.RHREAS ---
Rehab Reassessment Rehab OP Re-assessment Start: 05/06/24 09:05 Freq: Status: Active Protocol: Document 05/28/24 13:02 MICHELLE (Rec: 05/28/24 14:58 MICHELLE [id number]) E-signed By Caitlin Gonzalez PT QuickDASH Activities Please rate your ability to do the following activities in the last week by selecting the number below the appropriate response. 1. Open a tight or new jar. Severe difficulty 2. Do heavy car racer (e.g., wash Severe difficulty bustos, floors). 3. Carry a shopping bag or briefcase. Moderate difficulty 4. Wash your back. Unable 5. Use a knife to cut food. Moderate difficulty 6. Recreational activities in which you Severe difficulty take some force or impact through your arm, shoulder, or hand (e.g., golf, hammering, tennis, etc.). 7. During the past week, to what extent Slightly has your arm, shoulder or hand problem interfered with your normal social activities with family, friends, neighbors or groups? 8. During the past week, were you Very limited limited in your work or other regular daily activites as a result of your arm, shoulder or hand problem? 9. Arm, shoulder or hand pain. Severe 10. Tingling (pins and needles) in your None arm, shoulder or hand. 11. During the past week, how much Moderate difficulty difficulty have you had sleeping because of the pain in your arm, shoulder or hand? Quick DASH 37 Rehab Re-assessment Subjective Subjective Pt reports she feels 50% improved since starting PT. Pt reports she has good and bad days, sates yesterday was a bad day with pain 10/10 on VAS . Pt reports pain starts at the front of her shoulder and often refers to her elbow. Pt describes pain as sharp in nature aggravated by reaching, lifting and laying on the R side. Pt denies neck pain or paresthesia. Pt reports compliance with HEP. Objective Objective Notes R shoulder TTP: AC joint, greater tuberosity, bicep tendon R shoulder AROM in seated: flexion 120, abduction 90, IR 75, ER 50 R shoulder MMT: 4/5 grossly p! with resisted abduction and IR Assessment Progress Assessment Slower Than Expected Assessment Notes Pt has attended 8 PT treatment sessions consisting of R shoulder mobility, stretching, strengthening, postural re- education, manual therapy, modalities and HEP with good tolerance. Pt demonstrated no significant changes in subjective or objective measure this date compared to the initial evaluation. Pt continues to report pain with R shoulder abduction and flexion with limited ROM. Pt also reports conitnued 10/10 R shoulder pain at worst with functional activities. Due to lack of progress with conservative care thus far, will hold PT treatment at this time and refer back to MD for MRI and further treatment options. Patient goals met ST/5 Goals Not Met p! at worst, ROM Revised Goals n/a Plan Plan Hold PT treatment. Refer back to MD for MRI and further treatment options Time and Billing Re-Eval Time 18 Re-Eval Billing Units 0 Charge for PT reassessment? No Charge for OT reassessment? No PHYSICIAN CERTIFICATION: I certify the specified therapy services for Fanny Vincent are required, authorized, and reviewed every 30 days.
== END 2024-05-28 23:59 | disposition home or self-care (01) ==
LOC: PT 13:00
PROVIDERS: Visit Provider Family Medicine
DX: M25.511 Pain in right shoulder (principal); M25.611 Stiffness of right shoulder, not elsewhere classified
CPT/HCPCS: 97014; 97035; 97110; 97140; G0283

== ENCOUNTER 2024-07-08 13:13 | Outpatient (CLI) | payer MEDICAID, SELFPAY ==
--- NOTE | 2024-07-08 13:14 | US_ITS ---
FINAL REPORT TECHNIQUE: Sonographic images of the thyroid were obtained. CLINICAL HISTORY: fullness of the thyroid COMPARISON: None FINDINGS: THYROID ULTRASOUND The right thyroid gland measures 4.0 x 1.6 x 1.3 cm. The left thyroid gland measures 4.2 x 1.6 x 1.8 cm. The parenchyma shows normal echogenicity. There are a multitude of hypoechoic and anechoic subcentimeter nodules in both lobes of the thyroid. There is an 8 mm TI-RADS 4 nodule in the left lobe of the thyroid. IMPRESSION: Multiple bilateral nodules with a TI-RADS 4 nodule measuring up to 8 mm in the left lobe. Per TI-RADS criteria, no follow-up required. Reviewed, Interpreted and Dictated by Clayton Dillard MD Transcribed by Anne Gomez Authenticated and [facility]
== END 2024-07-08 23:59 | disposition home or self-care (01) ==
LOC: RAD 13:14
PROVIDERS: PCP Nurse Practitioner Family; Visit Provider Nurse Practitioner
DX: E07.89 Other specified disorders of thyroid (principal)
CPT/HCPCS: 76536

== ENCOUNTER 2024-09-29 11:45 | Outpatient (CLI) | payer MEDICAID, SELFPAY ==
--- NOTE | 2024-09-29 | CA_ITS ---
APPROVED REPORT Exam: Pharmacologic Technologist: Renetta James Ht: 5 ft 5 in Wt: 194 lbs BSA: 1.95 m2 HR: 77 bpm BP: 180/103 mmHg Stress Test Details Test: Lexiscan HR Resting HR: 77 bpm Max Heart Rate (APMHR): 161 bpm Max HR Achieved: 92 bpm Target HR (85% APMHR): 137 bpm % of APMHR: 57 Recovery HR: 74 bpm BP Resting BP: 180.0/103.0 mmHg Max BP: 208.0/105.0 mmHg Recovery BP: 174.0/94.0 mmHg ECG Resting ECG: Normal sinus rhythm Stress ECG Conclusion Symptoms: Dyspnea, chest pressure Arrhythmias/Ectopy: - ST-T Changes: Less than 1 mm Conclusion: EKG unremarkable due to Lexiscan infusion. Electronically signed by : Madisyn Coreas MD 09/29/2024 23:42:20
--- NOTE | 2024-09-29 12:00 | NM_ITS ---
APPROVED REPORT Exam: Nuclear Stress Test Indication: cp..palpitations..fatigue Patient Location: Outpatient Stress Tech: Renetta James NM Tech:RONEN ArringtonT, RT (R)(N) Ht: 5 ft 5 in Wt: 193 lbs Bra Size: 38c HR: 76 bpm BP: 180/103 mmHg BSA: 1.95 m2 TID: 1.15 BMI: 32.1 History: cp..palpitations..fatigue Procedure: Patient received 0.4 mg of intravenous Lexiscan, resting heart rate 76 bpm, resting blood pressure 180/103 mmHg, with Lexiscan maximum heart rate achieved was 93 bpm which is 85 % of the maximum predicted heart rate and blood pressure was 208/105 mmHg. With Lexiscan, patient denied any complaint of chest pain. Cardiac Stress and Resting SPECT Images: Cardiac Stress and Resting SPECT images were obtained using technetium 99m Myoview 30.2 mCi stress and 10.41 mCi at rest. Resting and stress imaging in supine and prone positions demonstrate no evidence of fixed or reversible perfusion defects. Gated imaging demonstrates normal global and regional LV systolic function. LVEF is calculated at 64%. Conclusion: No evidence of fixed or reversible perfusion defects. Gated imaging demonstrates normal global and regional LV systolic function. LVEF is calculated at 64%. Electronically signed by : Madisyn Coreas MD 09/29/2024 23:39:57
[2024-09-29] MEDS: REGADENOSON 0.4MG/5ML SYRINGE 0.4 MG IV (14:34)
[2024-09-29] MEDS: SODIUM CHLORIDE 0.9% 10ML SYR (RAD ONLY) 10 ML IV ×2 (14:34)
[2024-09-29] MEDS: ISOTOPE MYOVIEW (PER STUDY) 1 DOSE IV (14:34)
== END 2024-09-29 23:59 | disposition home or self-care (01) ==
LOC: RAD 11:46
PROVIDERS: PCP Nurse Practitioner Family; Visit Provider Nurse Practitioner Family
DX: I25.10 Atherosclerotic heart disease of native coronary artery without angina pectoris (principal); I51.89 Other ill-defined heart diseases; R00.2 Palpitations
CPT/HCPCS: 78452; 93017; 93018; A9502; J2785

== ENCOUNTER 2024-10-01 12:49 | Outpatient (CLI) | payer MEDICAID, SELFPAY ==
--- NOTE | 2024-10-01 13:00 | CA_ITS ---
APPROVED REPORT EXAM: Comprehensive 2D, Doppler, and color-flow Echocardiogram Molding Supervisor: Winifred Posada RT(R) Ht: 5 ft 5 in Wt: 194lbs BSA: 1.95 BP: 167/69 mmHg Indications: Chest pain, smoker, SOB, CAD 2D Dimensions LA Volume 15.20 mL LA Volume Index 7.79 mL/m2 (M/F) 16-34 EF AP4 60.90 % GL Strain -17.1 % M-Mode Dimensions RVDd 2.25 cm (0.9-2.6) LA Diam 3.34 cm (1.9-4.0) LVDd 4.87 cm (3.5-5.7) LVDs 3.56 cm (3.5-5.7) IVSd 0.73 cm (0.6-1.1) PWd 0.93 cm (0.6-1.1) EF (Teich) 52.30% FS 26.90% EDV (Teich) 111.20 mL ESV (Teich) 53.00 mL LV Diastology E Decel Time 253 (160-240 msec) E/A Ratio 1.03 Mitral Valve MV A Velocity 96.0 (40-130 cm/s) E/A Ratio 1.03 Left Ventricle The left ventricle is normal size. The left ventricular systolic function is normal. The left ventricular ejection fraction is within the normal range. Proximal septal thickening is present. There is normal LV segmental wall motion. The left ventricular diastolic function is normal. LVEF is 60%. Right Ventricle The right ventricle is normal size. The right ventricular systolic function is normal. Atria The left atrium size is normal. The right atrium size is normal. There is no Doppler evidence of interatrial shunt. Aortic Valve Aortic valve opens well. There is no aortic valvular stenosis. No aortic regurgitation is present. Mitral Valve The mitral valve is normal in structure. No evidence of mitral valve stenosis. There is no mitral valve regurgitation noted. Tricuspid Valve Tricuspid valve is grossly normal in structure and function. Trace mitral regurgitation. There is insufficient TR jet to estimate RVSP. Pulmonic Valve The pulmonary valve is normal in structure. Trace pulmonic regurgitation. Great Vessels The aortic root is normal in size. IVC is normal in size and collapses >50% with inspiration. Pericardium There is no pericardial effusion. Other Information Study Quality: Fair Conclusion Normal biventricular systolic function. No significant valvular stenosis or regurgitation. Electronically signed by : Madisyn Coreas MD 10/08/2024 14:46:54
== END 2024-10-01 23:59 | disposition home or self-care (01) ==
LOC: RT 12:50
PROVIDERS: PCP Nurse Practitioner Family; Visit Provider Nurse Practitioner Family
DX: I25.10 Atherosclerotic heart disease of native coronary artery without angina pectoris (principal); I51.89 Other ill-defined heart diseases; F17.200 Nicotine dependence, unspecified, uncomplicated
CPT/HCPCS: 93306

== ENCOUNTER 2024-10-09 12:46 | Outpatient (CLI) | payer MEDICAID, SELFPAY ==
--- OUTSIDE RECORDS SUMMARY | 2024-10-09 12:49 | XMS_ITS | Clinical Summary ---
Author Organization [facility] Address [address] [place] [address] Care Team Providers Care Private Detective Name Role Phone JunitoJerson ANDRES Primary Care Provider Allergies Active Allergy Reactions Criticality Noted Date Comments Ofloxacin Unknown - Patient states they do not know rxn details Low 03/02/2016 Pregabalin Unknown - Patient states they do not know rxn details Low 03/02/2016 Sulfamethoxazole Unknown - Patient states they do not know rxn details Low 12/19/2023 Sulfamethoxazole-Trimethoprim Unknown - Patient states they do not know rxn details Low 03/02/2016 Trimethoprim Unknown - Patient states they do not know rxn details Low 12/19/2023 Medications atorvastatin (Lipitor) 40 MG tablet 11/14/2017 Active bisoprolol (Zebeta) 10 MG tablet 1 tablet (10 mg). 11/14/2023 Active buPROPion XL (Wellbutrin XL) 300 MG 24 hr tablet 1 tablet (300 mg). 11/28/2023 Active cariprazine (Vraylar) 1.5 MG capsule 1 capsule (1.5 mg). 11/28/2023 Active clopidogrel (Plavix) 75 MG tablet 1 tablet (75 mg). 12/24/2017 Active Repatha SureClick 140 MG/ML solution auto-injector 12/26/2023 Activ e FeroSul 325 (65 Fe) MG tablet 01/06/2024 Activ e gabapentin (Neurontin) 800 MG tablet 1 tablet (800 mg). 08/26/2015 Active hydrOXYzine pamoate (Vistaril) 25 MG capsule 1 capsule (25 mg). 11/22/2017 Active irbesartan (Avapro) 150 MG tablet 12/26/2023 Active nitroglycerin (Nitrostat) 0.4 MG SL tablet 1 tablet (0.4 mg). 12/12/2023 Active ondansetron (Zofran) 4 MG tablet 1 tablet (4 mg). 01/14/2018 Active pantoprazole (Protonix) 40 MG EC tablet 1 tablet (40 mg). 12/12/2023 Active QUEtiapine (SEROquel) 50 MG tablet 1 tablet (50 mg). 12/12/2023 Active Xarelto 2.5 MG tablet 12/26/2023 Active albuterol 108 (90 Base) MCG/ACT inhaler 04/20/2024 Act nathalia esomeprazole (NexIUM) [address] capsule 04/20/2024 Active famotidine (Pepcid) 40 MG tablet 1 tablet (40 mg). 03/17/2024 Active Active Problems No known active problems Family History Medical History Relation Name Comments COPD Other 1 Heart failure Other 2 Diabetes Other 3 Other cancer Other 4 Relation Name Status Comments Other 1 Other 2 Other 3 Other 4 Social History Tobacco Use Types Packs/Day Years Used Date Smoking Tobacco: Former Cigarettes 2 - 1981 Passive Smoke Exposure: Never Smokeless Tobacco: Never Alcohol Use Standard Drinks/Week Comments Never 0 (1 standard drink = 0.6 oz pur e alcohol) PHQ-2 Answer Date Recorded Patient Health Questionnaire-2 Score 0 05/01/2024 PHQ-9 Answer Date Recorded Patient Health Questionnaire-9 Score 0 05/01/2024 Comments Unknown Sex and Gender Information Value Date Recorded Sex Assigned at Not on file Legal Sex Female 8:47 PM EDT Gender Identity Not on file Sexual Orientation Not on file Last Filed Vital Signs Vital Sign Reading Time Taken Comments Blood Pressure 120/86 05/01/2024 1:24 PM EST Pulse 79 05/01/2024 1:24 PM EST Temperature 36.8 C (98.3 F) 05/01/2024 1:24 PM EST Respiratory Rate 14 03/09/2024 7:06 AM EST Oxygen Saturation 96% 05/01/2024 1:24 PM EST Inhaled Oxygen Concentration - - Weight 89.5 kg (197 lb 5 oz) 05/01/2024 1:24 PM EST Height 165.1 cm (5' 5 ) 05/01/2024 1:24 PM EST Body Mass Index 32.83 05/01/2024 1:24 PM EST Plan of Treatment Health Maintenance Due Date Last Done Comments [facility]-HIV Screening 1965 [facility]-Hepatitis C Screening 1964 [facility]-Infant/Child/Adol SDOH Screenings 1964 [facility]- SDOH Screenings 1982 [facility]-Adult SDOH Screenings 1982 [facility]-DTaP,Tdap,and Td Vaccine s (1 - Tdap) 10/05/1983 CT Colonography 2009 Colonoscopy 2009 FIT-DNA 2009 FIT 2009 FOBT 2009 Sigmoidoscopy 2009 [facility]-Colorectal Cancer Screening 2009 [facility]-Breast Cancer Screening 2014 [facility]-Pneumococcal Vaccine: 50 + Years (1 of 1 - PCV) 2014 [facility]-Zoster Vaccines (1 of 2) 2014 [id number] Vaccine (2 - season) 2023 08/03/2020 [facility]-Influenza Vaccine (Seaso n Ended) 2024 [facility]-Depression Screening 05/01/2025 025, 05/01/2024 [facility]-RSV Vaccine: 60+ Years o r (1 - 1-dose 75+ series) 10/05/2039 [facility]-Obesity Intervention Completed 025, 01/10/2024 HPV Vaccines Aged Out No longer eligi ble based on patient's age to complete this topic [facility]-HIB Vaccines Aged Out No longer e ligible based on patient's age to complete this topic [facility]-Hepatitis A Vaccines Aged Out No longer eligible based on patient's age to complete this topic [facility]-IPV Vaccines Aged Out No longer e ligible based on patient's age to complete this topic [facility]-Rotavirus Vaccines Aged Out No lo nger eligible based on patient's age to complete this topic Insurance [facility] MEDICAID Care Teams Private Detective Relationship Specialty Start Date End Date Jerson Wild APRN [address] [place] [address] JORGE ALBERTO Alexander [address] PCP - General 01/10/24
--- NOTE | 2024-10-09 13:00 | MM_ITS ---
PROCEDURE INFORMATION: Exam: MG Bilateral Screening 3D Mammography Exam date and time: 10/09/2024 12:58 PM Age: 59 years old Clinical indication: Screening mammogram TECHNIQUE: Imaging protocol: Bilateral Screening tomosynthesis and 2D mammography including computer-aided detection (CAD) when performed. COMPARISON: 1. MG MM DIG SCREENING MAMM BI W/CAD 10/08/2023 3:47 PM 2. MG MM DIG SCREENING MAMM BI W/CAD 08/07/2021 12:55 PM 3. MG MM DIG SCREENING MAMM BI W/CAD 06/30/2020 8:24 AM 4. MG MM DIG SCREENING MAMM BI W/CAD 02/24/2019 1:10 PM FINDINGS: MAMMOGRAPHY: Breast composition: There are scattered areas of fibroglandular density. Mass: None. Architectural distortion: No new or suspicious architectural distortion. Calcifications: No new or suspicious calcifications are present Asymmetric density: No new or suspicious asymmetric density is present Skin thickening: None. Axillary adenopathy: None. IMPRESSION: No mammographic evidence of malignancy. Recommend annual screening mammography unless otherwise clinically indicated. ASSESSMENT: BI-RADS category 1: Negative.
== END 2024-10-09 23:59 | disposition home or self-care (01) ==
LOC: RAD 12:47
PROVIDERS: PCP Nurse Practitioner Family; Visit Provider Obstetrics & Gynecology
DX: Z12.31 Encounter for screening mammogram for malignant neoplasm of breast (principal); R92.323 Mammographic fibroglandular density, bilateral breasts
CPT/HCPCS: 77063; 77067

== ENCOUNTER 2024-10-26 09:15 | Outpatient (CLI) | payer MEDICAID, SELFPAY ==
--- OUTSIDE RECORDS SUMMARY | 2024-10-26 09:17 | XMS_ITS | Clinical Summary ---
Author Organization [facility] Address [address] [place] [address] Care Team Providers Care Renewable Energy Engineer Name Role Phone JunitoJerson ANDRES Primary Care [...] 2014 [facility]-Zoster Vaccines (1 of 2) 2014 [id number] Vaccine (2 - season) 2023 08/03/2020 [facility]-Influenza [...] patient's age to complete this topic Insurance [facility] MEDICAID Care Teams Renewable Energy Engineer Relationship Specialty Start Date End Date Jerson Wild APRN [address] [place] [address] JORGE ALBERTO [place] [address] PCP - General 01/10/24
[2024-10-26 10:19] LABS: Hemoglobin A1C 8.1 % (4.0-6.0)
[2024-10-26 10:25] LABS: Cholesterol 176 mg/dl (140-200); Triglycerides 400 mg/dl (30-150)
[2024-10-26 10:26] LABS: Chol/HDL Ratio 5.2 (1-3.5); Glucose,Random 176 mg/dL (74-100); HDL Cholesterol 34 mg/dl (40-60)
[2024-10-26 10:38] LABS: Direct LDL Cholesterol 75.87 mg/dL (100-129)
[2024-10-26 10:43] LABS: Triiodothryronine (T3) Uptake 31 % (23.5-40.5)
[2024-10-26 10:44] LABS: Free Thyroxine Index 2.7 ug/dL (5.93-13.13); T4 (Thyroxine) 8.8 ug/dl (5.53-11.0)
[2024-10-26 10:58] LABS: Thyroid Stimulating Hormone 1.14 uIU/mL (0.465-4.68)
== END 2024-10-26 23:59 | disposition home or self-care (01) ==
LOC: LAB 09:15
PROVIDERS: PCP Nurse Practitioner Family
DX: Z51.81 Encounter for therapeutic drug level monitoring (principal); R53.83 Other fatigue; E04.1 Nontoxic single thyroid nodule; E07.89 Other specified disorders of thyroid; F41.9 Anxiety disorder, unspecified; Z68.38 Body mass index [BMI] 38.0-38.9, adult
CPT/HCPCS: 36415; 80061; 82947; 83036; 84436; 84443; 84479

== ENCOUNTER 2024-11-02 16:47 | Outpatient (CLI) | payer MEDICAID, SELFPAY ==
--- OUTSIDE RECORDS SUMMARY | 2024-11-02 16:50 | XMS_ITS | Clinical Summary ---
Author Organization [facility] Address [address] [place] [address] Care Team Providers Care Superintendent [employer] Name Role Phone JunitoJerson ANDRES Primary Care [...] [facility]-HIV Screening 1964 [facility]-Hepatitis C Screening 1964 [facility]-/Child/Adol SDOH Screenings 1964 [facility]- SDOH Screenings 1982 [facility]-Adult SDOH Screenings 1982 [facility]-DTaP,Tdap,and Td Vaccine s (1 - Tdap) 10/05/1983 CT Colonography 2009 Colonoscopy 2009 FIT-DNA 2009 FIT 2009 FOBT 2009 Sigmoidoscopy 2009 [facility]-Colorectal Cancer Screening 2009 [facility]-Breast Cancer Screening 2014 [facility]-Pneumococcal Vaccine: 50 + Years (1 of 1 - PCV) 2014 [facility]-Zoster Vaccines (1 of 2) 2014 [id number] Vaccine (2 - season) 2023 08/03/2020 [facility]-Influenza Vaccine (#1) 2024 [facility]-Depression Screening 05/01/2025 025, 05/01/2024 [facility]-RSV [...] patient's age to complete this topic Insurance [facility] MEDICAID Care Teams Superintendent [employer] Relationship Specialty Start Date End Date Jerson Wild APRN [address] [place] [address] JORGE ALBERTO Alexander [address] PCP - General 01/10/24
--- NOTE | 2024-11-02 17:15 | MR_ITS ---
PROCEDURE INFORMATION: Exam: MR Right Upper Extremity Joint Without Contrast; Shoulder Exam date and time: 11/02/2024 4:55 PM Age: 59 years old Clinical indication: Right shoulder pain with limited rom; Additional info: R shoulder pain TECHNIQUE: Imaging protocol: Magnetic resonance imaging of the right upper extremity without contrast. Exam focused on the shoulder. COMPARISON: CR XR SHOULDER RT MIN 2V 04/27/2024 1:11 PM FINDINGS: Bones/joints: Moderate osteophytosis and degenerative changes involve the acromioclavicular and glenohumeral joints. Glenoid labrum: Increased T2 signal and irregularity of the superior labrum resulting in high-grade degenerative SLAP tear. Supraspinatus tendon: Severe thickening and increased T2 signal of the supraspinatus with high-grade combined bursal sided and articular sided tear with a few fibers remaining intact. Infraspinatus tendon: Severe thickening and increased T2 signal of the infraspinatus with high-grade bursal sided and articular sided tears with a proximally 1.6 cm of retraction and a few fibers remaining intact. Subscapularis tendon: Moderate thickening and increased T2 signal of the subscapularis with split tear resulting in medial ization of the long head biceps tendon. Teres minor tendon: Unremarkable. No evidence of tear. Tendon of biceps brachii: Severe thickening and increased T2 signal of the biceps tendon, which is medial to the bicipital groove with high-grade tear of the intra-articular component. Glenohumeral ligaments: Moderate irregular signal of the anterior inferior and posteroinferior glenohumeral ligaments compatible with at least moderate grade tears. Soft tissues: Unremarkable. Other findings: Thickening and irregular signal involving the inferior capsule may represent adhesive capsulitis. IMPRESSION: 1. Severe thickening and increased T2 signal of the supraspinatus with high-grade combined bursal sided and articular sided tear with a few fibers remaining intact. 2. Severe thickening and increased T2 signal of the infraspinatus with high-grade bursal sided and articular sided tears with a proximally 1.6 cm of retraction and a few fibers remaining intact. 3. Moderate thickening and increased T2 signal of the subscapularis with split tear resulting in medial ization of the long head biceps tendon. 4. Severe thickening and increased T2 signal of the biceps tendon, which is medial to the bicipital groove with high-grade tear of the intra-articular component. 5. Increased T2 signal and irregularity of the superior labrum resulting in high-grade degenerative SLAP tear. 6. Moderate irregular signal of the anterior inferior and posteroinferior glenohumeral ligaments compatible with at least moderate grade tears. 7. Moderate osteophytosis and degenerative changes involve the acromioclavicular and glenohumeral joints. 8. Thickening and irregular signal involving the inferior capsule may represent adhesive capsulitis.
== END 2024-11-02 23:59 | disposition home or self-care (01) ==
LOC: RAD 16:48
PROVIDERS: PCP Nurse Practitioner Family; Visit Provider Nurse Practitioner Family
DX: M75.111 Incomplete rotator cuff tear or rupture of right shoulder, not specified as traumatic (principal); S46.111A Strain of muscle, fascia and tendon of long head of biceps, right arm, initial encounter; S46.211A Strain of muscle, fascia and tendon of other parts of biceps, right arm, initial encounter; S43.431A Superior glenoid labrum lesion of right shoulder, initial encounter; M25.711 Osteophyte, right shoulder; M19.011 Primary osteoarthritis, right shoulder; R93.6 Abnormal findings on diagnostic imaging of limbs
CPT/HCPCS: 73221

== ENCOUNTER 2024-12-11 11:13 | Outpatient (CLI) | payer MEDICAID, SELFPAY ==
--- OUTSIDE RECORDS SUMMARY | 2024-12-11 11:15 | XMS_ITS | Clinical Summary ---
Author Organization [facility] Address [address] [place] [address] Care Team Providers Care Delivery Technician Name Role Phone JunitoJerson ANDRES Primary Care [...] 2014 [facility]-Zoster Vaccines (1 of 2) 2014 [id number] Vaccine (2 - season) 2023 08/03/2020 [facility]-Influenza [...] patient's age to complete this topic Insurance [facility] MEDICAID Care Teams Delivery Technician Relationship Specialty Start Date End Date Jerson Wild APRN [address] [place] [address] JORGE ALBERTO Alexander [id number] PCP - General 01/10/24
[2024-12-11 13:13] LABS: Anion Gap 14.1 mEq/L (5-15); Blood Urea Nitrogen 10 mg/dl (7-17); Calcium 9.5 mg/dl (8.4-10.2); Carbon Dioxide 27 mmol/L (22.0-30.0); Chloride 100 mmol/L (98-107); Creatinine,Serum 1.00 mg/dl (0.52-1.04); Estimated Glomerular Filt Rate 57 ml/min (>60); GFR (African American) 68 ML/MIN (>60); Glucose 152 mg/dl (74-100); Potassium 4.1 mmoL/L (3.5-5.1); Sodium 137 mmol/L (136-145)
== END 2024-12-11 23:59 | disposition home or self-care (01) ==
LOC: LAB 11:13
PROVIDERS: PCP Nurse Practitioner Family; Visit Provider Nurse Practitioner Family
DX: I25.10 Atherosclerotic heart disease of native coronary artery without angina pectoris (principal); I10 Essential (primary) hypertension
CPT/HCPCS: 36415; 80048

== ENCOUNTER 2025-01-25 15:00 | Outpatient (RCR) | payer MEDICAID, SELFPAY | END 2025-01-25 23:59 | disposition home or self-care (01) | LOC: OT 15:00 | PROVIDERS: Visit Provider Orthopaedic Surgery Adult Reconstructive Orthopaedic Surgery | DX: Z47.89 Encounter for other orthopedic aftercare (principal); Z98.890 Other specified postprocedural states | CPT/HCPCS: 97014; 97032; 97035; 97110; 97140; 97165; 97530; G0283 ==

== ENCOUNTER 2025-02-19 15:00 | Outpatient (RCR) | payer MEDICAID, SELFPAY | END 2025-02-19 23:59 | disposition home or self-care (01) | LOC: OT 15:00 | PROVIDERS: PCP Nurse Practitioner Family; Visit Provider Orthopaedic Surgery Adult Reconstructive Orthopaedic Surgery | DX: Z47.89 Encounter for other orthopedic aftercare (principal); M25.511 Pain in right shoulder | CPT/HCPCS: 97010; 97014; 97032; 97110; 97140; 97530; G0283 ==

== ENCOUNTER 2025-03-26 15:00 | Outpatient (RCR) | payer MEDICAID, SELFPAY | END 2025-03-26 23:59 | disposition home or self-care (01) | LOC: OT 15:00 | PROVIDERS: PCP Nurse Practitioner Family; Visit Provider Orthopaedic Surgery Adult Reconstructive Orthopaedic Surgery | DX: Z04.89 Encounter for examination and observation for other specified reasons (principal); Z96.611 Presence of right artificial shoulder joint | CPT/HCPCS: 97014; 97032; 97110; 97140; 97168; 97530; G0283 ==

== ENCOUNTER 2025-03-31 14:58 | Outpatient (RCR) | payer MEDICAID, SELFPAY | END 2025-04-02 23:59 | disposition home or self-care (01) | LOC: OT 14:58 | PROVIDERS: PCP Nurse Practitioner Family; Visit Provider Orthopaedic Surgery Adult Reconstructive Orthopaedic Surgery | DX: Z47.89 Encounter for other orthopedic aftercare (principal); Z98.890 Other specified postprocedural states | CPT/HCPCS: 97032; 97110; 97140 ==